=== PATIENT | female | born 1970 | race Hispanic/Latino ===

== ENCOUNTER 2019-06-25 15:05 | Inpatient (IN) | payer MEDICAID, SELFPAY ==
[~2019-06-25 15:05] MED LIST: Esmolol 100 MG/10 ML VIAL ONE; Labetalol HCl 100 MG/20 ML VIAL ONE; PROPOFOL 200 MG/20 ML VIAL ONE; Rocuronium Bromide 10 MG/ML (10ML VIAL) ONE
[2019-06-25] MEDS ORDERED: Rocuronium Bromide 10 MG/ML (10ML VIAL) ONE (15:08)
[2019-06-25 15:22] LABS: #Basophils 0.1 thou/uL (0.0-0.2); #Eosinphils 0.2 thou/uL (0.0-0.7); #Lymphocytes 3.7 thou/uL (1.20-3.40); #Monocytes 0.9 thou/uL (0.11-0.59); #Neutrophils 6.9 thou/uL (1.40-6.50); %Basophils 0.7 % (0.0-1.0); %Eosinophils 1.4 % (0.0-10.0); %Lymphocytes 31.7 % (21.0-51.0); %Monocytes 7.3 % (0.0-10.0); %Neutrophils 58.8 % (42.0-75.0); Hemoglobin 17.5 g/dL (12.0-16.0); Mean Corpuscular HGB CONC 33.9 g/dL (32.0-36.0); Mean Corpuscular Volume 85.5 fL (78.0-98.0); Platelet Count 218 thou/uL (130-400); RBC Distribution Width 12.8 % (11.5-14.5); Red Blood Cell (RBC) Count 6.04 mill/uL (4.20-5.40); White Blood Cell (WBC) Count 11.7 thou/uL (4.8-10.8)
[2019-06-25] MEDS ORDERED: Mannitol 12.5 GM/50 ML ONE (15:22)
[2019-06-25] MEDS ORDERED: levETIRAcetam 500 MG/100 ML PREMIX BAG ONE (15:22)
--- NOTE | 2019-06-25 15:22 | CT ---
CT BRAIN WITHOUT CONTRAST: HISTORY: Level I stroke. COMPARISON: None. FINDINGS: There is a large left thalamic hemorrhage with intraventricular extension seen through the bilateral lateral ventricles, left temporal horn, third ventricle and fourth ventricle. Moderate hydrocephalus. There is a midline shift, approximately 3 mm. There is some vasogenic edema along the left periventr icular white matter. IMPRESSION: Large left thalamic hemorrhagic infarction with intraventricular extension and subsequent hydrocephal us. There is lateral ventricle, third ventricle and fourth ventricle extension with hemorrhagic exten dorita through the foramen of Luschka and Magendie. CODE CR (Dr. Ramírez at 3:15 p.m.) POS: TPC
[2019-06-25] MEDS ORDERED: manNITOL 20% 0 ML ONE (15:26)
[2019-06-25 15:28] LABS: Prothrombin Time 12.9 SEC (12.0-14.7)
[2019-06-25] MEDS ORDERED: Propofol 1,000 MG/100 ML VIAL IV ONE (15:30)
[2019-06-25 15:33] LABS: BHCG - Serum Negative (NEGATIVE); Pregs Control Background? CLEAR/WHITE (CLR/WHITE); Pregs Control Bar Appear? YES (CONTROL BAR)
[2019-06-25] MEDS ORDERED: manNITOL 20% 500 ML ONE ×2 (15:34→17:26)
[2019-06-25 15:36] LABS: ALT (SGPT) 20 U/L (8-55); AST (SGOT) 24 U/L (5-34); Albumin 4.6 g/dL (3.5-5.0); Alkaline Phosphatase 93 U/L (40-110); Anion Gap 17 mmol/L (10-20); BUN (Urea Nitrogen) 20 mg/dL (7.0-18.7); Bilirubin, Total 1.1 mg/dL (0.2-1.2); CK (CPK) 74 U/L (29-168); Calc. Creatinine Clearance 0 mL/min (70-130); Calcium 9.7 mg/dL (7.8-10.44); Carbon Dioxide 21 mmol/L (22-29); Chloride 101 mmol/L (98-107); Estimated GFR-MDRD 53; Globulin 4.2 g/dL (2.4-3.5); Glucose 235 mg/dL (70-105); Lipase 21 U/L (8-78); Potassium 3.2 mmol/L (3.5-5.1); Protein, Total 8.8 g/dL (6.0-8.3); Sodium 136 mmol/L (136-145)
[2019-06-25 15:41] LABS: Large Platelets SLIGHT; MDiff Complete? YES; Platelet Morphology Comment Appears Adequate; RBC Morphology Normal
[2019-06-25] MEDS ORDERED: Thrombin 5000 UNITS/5 ML VIAL ONE (15:41)
[2019-06-25] MEDS ORDERED: Bacitracin Zinc Ointment 30 gm TUBE ONE (15:41)
[2019-06-25] MEDS ORDERED: levETIRAcetam In NaCl (Iso-Os) 1,000 MG in Premix Bag 1 BAG IVPB SCH (15:45)
[2019-06-25] MEDS ORDERED: niCARdipine 25 MG in Sodium Chloride 0.9% 250 ML 250 ML IVPB SCH (15:45)
[2019-06-25] MEDS ORDERED: Sodium Chloride 0.9% 1,000 ML IV SCH ×2 (15:45→19:15)
[2019-06-25] MEDS ORDERED: Mannitol 12.5 GM/50 ML IV SCH (15:45)
[2019-06-25] MEDS ORDERED: Fentanyl 100 MCG/2 ML VIAL ONE ×2 (15:49→17:46)
--- NOTE | 2019-06-25 15:50 | RAD ---
CHEST ONE VIEW: 06/25/19 HISTORY: Stroke protocol. COMPARISON: None. HISTORY: Enteric tube is in place with tip at the gastric fundus. The patient is intubated. Endotracheal tube tip above the deepak 2.8 cm. Central venous catheter tip projects over the inferior SVC. Mild atelectasis. IMPRESSION: Lines and tubes as above. POS: TPC
[2019-06-25 15:55] LABS: Thyroid Stimulating Hormone 0.6719 uIU/mL (0.35-4.94)
[2019-06-25 15:58] LABS: CKMB 1.9 ng/mL (0-6.6)
[2019-06-25 16:06] LABS: Bacteria/HPF None Seen HPF (None Seen); Bilirubin Negative (Negative); Blood, Urine Trace (Negative); Clarity Clear (Clear); Glucose, Urine (Dipstick) 300 mg/dL (Negative); Leukocyte Negative Leu/uL (Negative); Mucous/LPF 1+ LPF (<2+); Nitrite Negative (Negative); Protein, Urine (Dipstick) 300 mg/dL (Neg-Trace); RBC/HPF 0-3 HPF (0-3); Squamous Epithelial 0-3 HPF (0-3); Urobilinogen Normal mg/dL (Less than 2)
[2019-06-25] MEDS ORDERED: hydrALAZINE 20 MG/ML VIAL ONE (16:39)
[2019-06-25] MEDS ORDERED: Sodium Chloride 0.9% 10 ML ONE ×2 (16:43→22:31)
[2019-06-25] MEDS ORDERED: Morphine 2 MG/ML SYRINGE SLOW IVP PRN (18:49)
[2019-06-25] MEDS ORDERED: Propofol BOLUS 1,000 MG/100 ML VIAL IV PRN (18:49)
[2019-06-25] MEDS ORDERED: fentaNYL Citrate/PF 2,000 MCG in Sodium Chloride 0.9% 60 ML IV SCH (18:49)
[2019-06-25] MEDS ORDERED: DISCONTINUE PREVIOUS NARCOTIC PAIN MEDICATIONS AND BENZODIAZEPINES FS SCH (18:49)
[2019-06-25] MEDS ORDERED: Lorazepam 2 MG/ML VIAL SLOW IVP PRN (18:49)
[2019-06-25] MEDS ORDERED: Fentanyl BOLUS 250 ML IVPB PRN (18:49)
[2019-06-25] MEDS ORDERED: Milk Of Magnesia 30 ML UDCUP PO PRN (19:08)
[2019-06-25] MEDS ORDERED: Mag-Al 1200 mg/1200 mg/30 ML UDCUP PO PRN (19:08)
[2019-06-25] MEDS ORDERED: Bisacodyl 10 MG SUPP PR PRN (19:08)
[2019-06-25] MEDS ORDERED: Docusate 100 MG CAP PO PRN (19:08)
[2019-06-25] MEDS ORDERED: niCARdipine 25 MG in Sodium Chloride 0.9% 250 ML 240 ML IVPB SCH ×2 (19:15→19:19)
[2019-06-25] MEDS: manNITOL 20% 500 ML IVPB SCH (19:18)
[2019-06-25 19:34] LABS: Base Excess (BEa) -3.4 mEq/L (-2.0 to +3.0); CO2 Tension 31.9 mmHg (35.0-45.0); Calcium, Ionized 1.07 mmol/L (1.12-1.30); Carboxyhemoglobin (COHb) 0.5 gm% (0.0-3.0); Hemoglobin (Hb) 15.1 g/dL (12.0-16.0); O2 Tension (PaO2) 165.7 mmHg (80.0-100.0); pH, Arterial 7.42 (7.35-7.45)
[2019-06-25 19:35] LABS: ALV-art Gradient 79.625 (0-20); Puncture Site ALINE
[2019-06-25] MEDS ORDERED: [UNRECOGNIZED DRUG - REMARK] FS PRN (19:42)
[2019-06-25] MEDS: Sodium Chloride 0.9% 1,000 ML IV SCH (20:15)
[2019-06-25] MEDS: Potassium Chloride 20 MEQ in Premix Bag 1 BAG IVPB SCH ×2 (20:15→22:33)
[2019-06-25] MEDS: CEFAZOLIN 2 GM in Premix Bag 1 BAG IVPB SCH (22:22)
[2019-06-25 23:03] LABS: Amphetamine Not Detected (NotDetected); Barbiturates Screen Not Detected (NotDetected); Benzodiazepine Screen Not Detected (NotDetected); Cocaine Metabolite Screen Not Detected (NotDetected); Medtox Control Line Valid? VALID (VALID); Medtox Reader # READER 1; Methadone Not Detected (NotDetected); Methamphetamine Not Detected (NotDetected); Opiate Screen Not Detected (NotDetected); Oxycodone Screen Not Detected (NotDetected); Phencyclidine (PCP) Not Detected (NotDetected); THC/Cannabinoid Screen Not Detected (NotDetected); Tricyclic Screen Not Detected (NotDetected)
[2019-06-26] MEDS: Potassium Chloride 20 MEQ in Premix Bag 1 BAG IVPB SCH (00:16)
[2019-06-26] MEDS: niCARdipine 50 MG in Sodium Chloride 0.9% 250 ML 230 ML IVPB PRN ×6 (01:41→21:56)
[2019-06-26] MEDS: CEFAZOLIN 2 GM in Premix Bag 1 BAG IVPB SCH ×3 (06:11→21:58)
[2019-06-26 08:09] LABS: Anion Gap 14 mmol/L (10-20); BUN (Urea Nitrogen) 23 mg/dL (7.0-18.7); Calc. Creatinine Clearance 59 mL/min (70-130); Calcium 8.2 mg/dL (7.8-10.44); Carbon Dioxide 20 mmol/L (22-29); Chloride 109 mmol/L (98-107); Estimated GFR-MDRD 53; Glucose 304 mg/dL (70-105); Potassium 3.8 mmol/L (3.5-5.1); Sodium 139 mmol/L (136-145)
[2019-06-26 08:15] LABS: #Lymphocytes 1.2 thou/uL (1.20-3.40); #Monocytes 1.2 thou/uL (0.11-0.59); #Neutrophils 16.7 thou/uL (1.40-6.50); %Basophils 0.1 % (0.0-1.0); %Eosinophils 0.1 % (0.0-10.0); %Lymphocytes 6.3 % (21.0-51.0); %Monocytes 6.2 % (0.0-10.0); %Neutrophils 87.3 % (42.0-75.0); Hemoglobin 13.9 g/dL (12.0-16.0); Mean Corpuscular HGB CONC 32.5 g/dL (32.0-36.0); Mean Corpuscular Volume 86.2 fL (78.0-98.0); Mean Platelet Volume 11.7 fL (7.4-10.4); Platelet Count 214 thou/uL (130-400); RBC Distribution Width 12.8 % (11.5-14.5); Red Blood Cell (RBC) Count 4.95 mill/uL (4.20-5.40); White Blood Cell (WBC) Count 19.1 thou/uL (4.8-10.8)
--- NOTE | 2019-06-26 09:25 | CT ---
PRELIMINARY REPORT/[facility]/EMERGENCY AFTER HOURS PROCEDURE Exam: Unenhanced CT brain. History: Followup intracranial hemorrhage. Comparison: June 25, 2019. Findings: There is interval placement of left ventriculostomy catheter. It demonstrates a left front al approach and the tip terminates in third ventricle. New from prior exam is pneumocephalus. Air w ithin the right frontal region measures 1.1 cm and air within the left frontal region measures 1.2 cm . Air is present within the anterior horns of the lateral ventricles and also normal. Air within th e middle cranial fossa. Left basal ganglia hemorrhagic infarct is present measuring 64.2 x 2.8 cm it previously measured 4.0 x 2.7 cm, no significant interval change. There is persistent blood within the ventricles. Ventricles have decreased in size. There is mass effect from basal ganglia hemorrha ge with midline shift from left to right measuring approximately 6 mm. There has been worsening effa cement of cisterns. Impression: Interval placement of ventriculostomy catheter. Associated pneumocephalus. Decrease in size of ventricles. Left basal ganglia hemorrhage, unchanged. No significant change in intraventric ular blood. Worsening effacement of cisterns. ELECTRONICALLY SIGNED BY: Benita Schmitt MD Jun 26, 2019 4:08:04 AM [employer] FINAL REPORT EMERGENT AFTER HOURS CT OF THE BRAIN WITHOUT CONTRAST: FINDINGS/IMPRESSION: I agree with the findings and impression given in the preliminary report per [facility] physici an. There has been interval placement of a ventriculostomy catheter. There is a large hyperdense he morrhage involving the left basal ganglia and extending into lateral ventricles. The extent of hemor rhage is stable compared to the prior exam. There appears to be worsening of the crowding of the bas ilar cisterns.
[2019-06-26] MEDS: Sodium Chloride 0.9% 1,000 ML IV SCH ×2 (09:43→22:00)
[2019-06-26] MEDS ORDERED: Dextrose 5% in Water 1,000 ML IV PRN (12:14)
[2019-06-26] MEDS ORDERED: Dextrose 50% Abboject 50 ML SYRINGE SLOW IVP PRN (12:14)
--- NOTE | 2019-06-26 12:14 | PDOC.HOSPP ---
- Subjective Encounter Date: 06/26/19 Encounter Time: 10:00 non-verbal Subjective: pt is admitted for ICH due to hypertension, due to noncompliance with treatment , underwent surgery for hematoma evacuation and has EVD in place, after surgery pt is on ventilator, this morning CT brain is overall stable, pt is not responsive on vent when evaluated though sedation was turned off just before that, we are consulted for diabetes management. - Objective Vital Signs & Weight: Vital Signs (12 hours) Temp Pulse Resp 06/26/19 10:31 82 06/26/19 08:00 14 06/26/19 07:15 106 H 06/26/19 07:00 99.8 F H 06/26/19 06:00 13 06/26/19 04:00 99.4 F 13 06/26/19 03:31 88 06/26/19 02:00 17 Weight Weight 133 lb 9.602 oz Most Recent Monitor Data Heart Rate from ECG 84 NIBP 123/70 NIBP BP-Mean 87 Respiration from ECG 23 SpO2 100 I&O: 06/25/19 06/26/19 06/27/19 06:59 06:59 06:59 Intake Total 1892 Output Total 1717 292 Balance 175 -292 Result Diagrams: 06/26/19 07:22 06/26/19 07:22 Additional Labs: Accuchecks 06/26/19 06/25/19 06:20 22:27 POC Glucose 271 H 341 H Radiology Reviewed by me: Yes (CT brain reviewed) EKG Reviewed by me: Yes (NSR) Hospitalist ROS - Review of Systems ROS unobtainable: due to endotracheal tube - Medication Medications: Active Medications Generic Name Dose Route Start Last Admin Trade Name Freq PRN Reason Stop Dose Admin Mannitol 500 mls @ 0 mls/hr 06/25/19 16:00 06/25/19 19:18 Mannitol 20% IVPB 06/26/19 18:00 Not Given NOW MATTHIAS As Directed Levetiracetam 500 mg/ Device 100 mls @ 200 mls/hr 06/25/19 21:00 06/26/19 09: 34 IVPB 100 mls BID MATTHIAS Administration Sodium Chloride 1,000 mls @ 80 mls/hr 06/25/19 19:15 06/26/19 09:43 Normal Saline 0.9% IV 1,000 mls .[id number] MATTHIAS Administration Cefazolin Sodium/Dextrose 2 gm 50 mls @ 100 mls/hr 06/25/19 22:00 06/26/19 06 :11 / Device IVPB 50 mls Q8HR MATTHIAS Administration Nicardipine HCl 50 mg/ Sodium 250 mls @ 0 mls/hr 06/26/19 00:45 06/26/19 09: 35 Chloride IVPB 250 mls INF PRN Administration TO MAINTAIN SBP < 150 Protocol As Directed - Exam Eye: anicteric sclera ENT - other findings: cranitomy site with dressing and EVD in place Neck: no JVD, no thyromegaly, no lymphadenopathy, no carotid bruit Heart: RRR, no murmur, no gallops Respiratory: CTAB, no wheezes, no rales, no ronchi Gastrointestinal: soft, normal bowel sounds, no palpable masses, no hepatomegaly , no splenomegaly Extremities: no edema Skin: normal turgor Neurological: hemiplegia Hosp A/P (1) Hypertensive intracerebral hemorrhage Code(s): I61.9 - NONTRAUMATIC INTRACEREBRAL HEMORRHAGE, UNSPECIFIED Status: Acute (2) Acute respiratory failure with hypoxia Code(s): J96.01 - ACUTE RESPIRATORY FAILURE WITH HYPOXIA Status: Acute (3) Acute encephalopathy Code(s): G93.40 - ENCEPHALOPATHY, UNSPECIFIED Status: Acute (4) Hypertensive emergency Code(s): I16.1 - HYPERTENSIVE EMERGENCY Status: Acute (5) Diabetes type 2, uncontrolled Code(s): E11.65 - TYPE 2 DIABETES MELLITUS WITH HYPERGLYCEMIA Status: Acute (6) Noncompliance with medication regimen Code(s): Z91.14 - PATIENT'S OTHER NONCOMPLIANCE WITH MEDICATION REGIMEN Status : Chronic (7) Hypokalemia Code(s): E87.6 - HYPOKALEMIA Status: Resolved - Plan old records reviewed/req, DVT proph w/SCDs 06/26/19 continue ventilator management as per pulmonary EVD and post craniotomy care as per neurosurgeon on cardene drip started hyperglycemia protocol treatment for high blood sugar medication reviewed and continue to provide symptomatic treatment prognosis guarded
[2019-06-26] MEDS: HumaLOG 300 UNITS/3 ML VIAL SC PRN ×2 (13:33→17:49)
--- NOTE | 2019-06-26 15:28 | CON ---
DATE OF CONSULTATION: 06/26/2019 SERVICE: Pulmonary Medicine. REASON FOR CONSULTATION: ICU patient. HISTORY OF PRESENT ILLNESS: The patient is a 49-year-old female with past medical history significant for uncontrolled hypertension. She was in her usual state of health when she had an abrupt onset of neurologic dysfunction. She was brought to the emergency department. 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 Her blood pressure was over 270. As such, rapid blood pressure reduction was initiated. She was completely obtunded, intubated to protect her airway. No medical history is obtainable. PAST MEDICAL HISTORY: Completely unknown. PAST SURGICAL HISTORY: Completely unknown. FAMILY HISTORY: Completely unknown. SOCIAL HISTORY: Completely unknown. ALLERGIES: UNKNOWN. MEDICATIONS: List of her inpatient medications was reviewed. No specific updates were made at this time. REVIEW OF SYSTEMS: Cannot be obtained as the patient is currently obtunded. PHYSICAL EXAMINATION: VITAL SIGNS: Afebrile with a T-max of 99.8, pulse 85, blood pressure 125/69, respirations 19, and saturation 100% on 40% FiO2 and PEEP of 5. GENERAL: The patient is intubated and sedated. HEENT: Normocephalic and atraumatic. She has an external ventricular drain in place. LUNGS: Good air entry bilaterally with no prolonged expiratory phase or wheezing. HEART: Normal rate, regular. ABDOMEN: Soft, nontender, and nondistended. Bowel sounds are positive. MUSCULOSKELETAL: No cyanosis or clubbing. There is no pitting in the bilateral lower extremities. LABORATORY DATA: WBC 19.1, hemoglobin 13.9, and platelets 214,000. INR 1.0. PH 7.42, pCO2 of 32, pO2 of 165, corresponding to saturation 99%. This was while on a FiO2 of 40%. Basic metabolic profile is completely unremarkable. Ammonia 27. Liver function studies are unremarkable. TSH is within normal limits. Serum is negative. Urinalysis is unremarkable. Urine drug screen is negative. IMAGING STUDIES: 1. CT of the brain demonstrates interval placement of ventriculostomy catheter associated with pneumocephalus. Decrease in size of the ventricles. Left basal ganglia hemorrhage is unchanged. No significant change in the intraventricular blood. There is worsening effacement of the cisterns. 2. Chest x-ray demonstrates no acute cardiopulmonary abnormality. ASSESSMENT: 1. Respiratory failure secondary to inability to protect airway. 2. Hypertensive emergency. 3. Intraparenchymal hemorrhage of the left thalamus with intraventricular extension, status post external ventricular drain, postop day #1. DISCUSSION AND PLAN: We will continue supportive care. At this point, the patient has too many moving parts to consider extubating her. We will continue to try to keep her blood pressure under 140. Pulmonary/Critical Care will follow very closely. Multiple adjustments have been made to the ventilator to turn slightly more work of breathing over to the patient. CRITICAL CARE TIME: 30 minutes. Job ID: [id number] MTDD
[2019-06-26] MEDS: Propofol 1,000 MG/100 ML VIAL IV PRN ×2 (15:37→21:56)
[2019-06-26] MEDS: manNITOL 20% 500 ML IVPB SCH (19:27)
[2019-06-27 05:11] LABS: Hemoglobin A1c 8.2 % (4.0-6.0)
[2019-06-27 05:33] LABS: Anion Gap 12 mmol/L (10-20); BUN (Urea Nitrogen) 19 mg/dL (7.0-18.7); Calc. Creatinine Clearance 82 mL/min (70-130); Carbon Dioxide 19 mmol/L (22-29); Cardiac Risk 3.4 (Less than 4.5); Chloride 113 mmol/L (98-107); Cholesterol 177 mg/dl (< 200 Desired); Estimated GFR-MDRD 75; Glucose 231 mg/dL (70-105); HDL Cholesterol 52 mg/dL (>60 Neg Risk); LDL Cholesterol, Calculated 99 mg/dL; Magnesium 1.9 mg/dL (1.6-2.6); Potassium 3.1 mmol/L (3.5-5.1); Sodium 141 mmol/L (136-145); Triglycerides 131 mg/dL (Less than 150)
[2019-06-27 05:38] LABS: Band 1 % (5-11); Hemoglobin 11.6 g/dL (12.0-16.0); Hypochromia SLIGHT = 6-15 cells (100X) (0-5/hpf); Lymphocytes 10 % (21-51); MDiff Complete? YES; Mean Corpuscular HGB CONC 32.5 g/dL (32.0-36.0); Mean Corpuscular Hemoglobin 27.7 pg (27.0-31.0); Mean Corpuscular Volume 85.3 fL (78.0-98.0); Mean Platelet Volume 11.8 fL (7.4-10.4); Monocytes 1 % (0-10); Neutrophil 88 % (42-75); Platelet Count 183 thou/uL (130-400); Platelet Morphology Comment Appears Adequate; RBC Distribution Width 12.8 % (11.5-14.5); White Blood Cell (WBC) Count 20.6 thou/uL (4.8-10.8)
[2019-06-27] MEDS: CEFAZOLIN 2 GM in Premix Bag 1 BAG IVPB SCH ×3 (05:44→22:10)
[2019-06-27] MEDS: niCARdipine 50 MG in Sodium Chloride 0.9% 250 ML 230 ML IVPB PRN ×2 (05:45→15:07)
[2019-06-27] MEDS: HumaLOG 300 UNITS/3 ML VIAL SC PRN ×3 (05:46→17:33)
--- NOTE | 2019-06-27 06:59 | PRG ---
DATE OF SERVICE: 06/27/2019 SERVICE: Pulmonary Medicine. INTERVAL HISTORY: The patient is doing fine from respiratory standpoint. Mentation turner, she is not following any commands, but she does localize and withdraws from noxious stimuli in all 4 extremities. There were some low-grade temperatures overnight. The patient cannot provide any additional elements of the history. Otherwise, there were no overnight events. PHYSICAL EXAMINATION: VITAL SIGNS: Afebrile with a T-max of 99.8. Pulse 85, blood pressure 123/59, respirations 21, saturation 100%, currently on 21% FiO2 and a PEEP of 5. GENERAL: The patient is somnolent. With stimulation, she will spontaneously open up her eyes, but she does not attend. HEENT: Normocephalic. An external ventricular drain is in place. Sclerae white. Conjunctivae pink. Oral mucosa is moist without lesions. LUNGS: Decent air entry. No prolonged expiratory phase or wheezing is appreciated. HEART: Normal rate. Regular. ABDOMEN: Soft, nontender, and nondistended. Bowel sounds are positive. MUSCULOSKELETAL: No cyanosis or clubbing. There is trace pitting throughout. NEUROLOGIC: She withdraws from noxious stimuli in all 4 extremities. She is comfortably overbreathing the ventilator and demonstrates good brainstem reflexes. She opens her eyes, occasionally spontaneously, but at this point, she is not following any commands. LABORATORY DATA: WBC 20.6, hemoglobin 11.6 and significantly downtrending, and platelets 183,000. Potassium 3.1, chloride 113, sodium 141. Creatinine 0.81. Magnesium 1.9. Urinalysis is unremarkable. Urine drug screen is negative. ASSESSMENT: 1. Respiratory failure secondary to inability to protect airway. 2. Hypertensive emergency. 3. Intraparenchymal hemorrhage of the left thalamus with intraventricular extension, status post craniotomy with external ventricular drain placement, postop day 2. DISCUSSION AND PLAN: The patient at this point is not in a place where we can consider extubation given her mental status issues. I will replace the potassium. Supportive care will otherwise be continued including tube feeds, and empiric antibiotics. Pulmonary/Critical Care will continue to follow her closely as the patient will remain in the ICU. Sedation we will minimize through time if possible. We will continue to escalate our p.o. blood pressure medications. Critical care time: 30 minutes. Job ID: [id number] [facility] CENTERMaricarmen
[2019-06-27] MEDS: Carvedilol 6.25 MG TAB PO SCH ×2 (08:11→17:26)
[2019-06-27] MEDS: hydrALAZINE 25 MG TAB PO SCH ×3 (08:51→20:34)
[2019-06-27] MEDS: Sodium Chloride 0.9% 1,000 ML IV SCH ×2 (08:53→14:28)
--- NOTE | 2019-06-27 10:04 | CT ---
CT Brain WO Con HISTORY: Follow-up of intracranial hemorrhage. COMPARISON: 06/26/2019 study. FINDINGS: Moderate pneumocephalus persists. The ventriculostomy tube remains in place with the tip in the region of the third ventricle. The large intraparenchymal hemorrhage in the left periventricular white matter basal ganglia region is stable and the intraventricular blood is similar to the prior examination. The ventricles are more decompressed than on the prior study. IMPRESSION: Large left base and tiny hemorrhage with extension into the ventricular system again note d this appears fairly stable as compared to the prior examination. The ventricular shunt tube remains in place. The ventricles are more decompressed than on the previous exam. Pneumocephalus pers ists.
--- NOTE | 2019-06-27 10:15 | ULT ---
EXAM: Bilateral lower extremity venous Doppler US HISTORY: bilateral lower extremity edema and impaired mobility recent craniotomy FINDINGS: Grayscale, color-flow, Doppler evaluation, spectral analysis of the bilateral lower extremities venou s structures is performed with 2-D imaging. The bilateral common femoral, superficial femoral, popliteal, posterior tibial, proximal greater saphenous and profunda femoral veins are imaged. There is normal luminal compressibility, flow, and augmentation in the visualized deep venous structu res of the bilateral lower extremities. IMPRESSION: No evidence of a deep vein thrombosis in either lower extremity.
--- NOTE | 2019-06-27 10:40 | PRG ---
DATE OF SERVICE: 06/27/2019 Ms. Rutherford remains in guarded condition. We will obtain a new head CT. We did back her EVD out approximately 15 mm yesterday as it was a bit deep, but certainly functioning quite well. This was inconsequential for the patient as her drain continues to work well. We have it below the bed and set at 0 to try and promote drainage given the substantial casting for ventricular system. She is on nicardipine in attempt to control her blood pressure. Prognosis remains guarded. Job ID: [id number]
--- NOTE | 2019-06-27 11:29 | OP ---
DATE OF PROCEDURE: 06/25/2019 INDUSTRIAL RELATIONS SPECIALIST: Joann Rendon PA-C LOCATION: OR 12. This is an emergency case. Ms. Rutherford was brought in as a 49-year-old woman with a systolic blood pressure well over 200 and diastolic blood pressure just under 200 with a moribund exam consisting of a GCS of 5T. Head CT demonstrated a thalamic hemorrhage with extensive casting of the ventricular system and obstructive hydrocephalus. She was given 1 g/kg of mannitol and taken immediately to the operating room. PREPROCEDURE DIAGNOSES: Thalamic hemorrhage with extensive ventricular casting and obstructive hydrocephalus with neurologic decline. POSTPROCEDURE DIAGNOSES: Thalamic hemorrhage with extensive ventricular casting and obstructive hydrocephalus with neurologic decline. PROCEDURES PERFORMED: 1. Left transcortical approach for intraventricular supratentorial hematoma evacuation with fenestration of the septum pellucidum and evacuation of hematoma in the third ventricle to restore CSF flow. 2. Twist drill placement of external ventricular drain into the ventricle to treat hydrocephalus. 3. Use of operative microscope for microdissection. DESCRIPTION OF PROCEDURE: Given the emergent nature of the case, the patient was taken immediately to the operating room. Left frontal Gissel's point region was identified. Hair was clipped in this area, and a coronal incision drawn out. This area was sterilely cleansed, prepared, and draped. Proper patient, pause, and identification were carried out. The wound was then opened with a combination of sharp, monopolar, and blunt dissection, and the skull was opened with a circular craniotomy. Middle frontal gyrus was identified and opened with the external ventricular catheter placed into the ventricular with return of bloody CSF under significant pressure. This then subsequently clotting off, confirming my suspicion that an external ventricular drain would not be able to treat the patient adequately. As such, we proceeded along the course of the external ventricular drain, identified the septum pellucidum, opened this up and evacuated significant amounts of hematoma. I went into the foramen of [place]ro on the left side and into the third ventricle and evacuated hematoma there and also posteriorly and made sure again there was a large septum pellucidum opening for biventricular communication and hematoma was removed in the right ventricular system as well. The brain was very relaxed. Copious irrigation occurred throughout as did maximizing hemostasis. The drain was then secured to the scalp, and this bone flap packed with titanium plates and screws, and scalp was closed in anatomic layers following sprinkling of vancomycin powder. The patient was then kept intubated and taken upstairs. Job ID: [id number]
--- NOTE | 2019-06-27 12:11 | PDOC.HOSPP ---
- Subjective Encounter Date: 06/27/19 Encounter Time: 07:15 Subjective: Patient seen and examined. pt is on vent, no overall improvement seen - Objective Vital Signs & Weight: Vital Signs (12 hours) Temp Pulse Resp BP Pulse Ox 06/27/19 11:23 76 157/76 H 06/27/19 10:00 15 06/27/19 08:51 85 130/64 06/27/19 08:11 112/58 L 06/27/19 08:00 99.1 F 26 H 100 06/27/19 07:37 99 132/63 06/27/19 06:00 21 H 06/27/19 04:00 99.5 F 20 06/27/19 03:18 95 06/27/19 02:00 24 H Weight Weight 138 lb 7.205 oz Most Recent Monitor Data Heart Rate from ECG 81 NIBP 151/72 NIBP BP-Mean 98 Respiration from ECG 19 SpO2 100 I&O: 06/26/19 06/27/19 06/28/19 06:59 06:59 06:59 Intake Total 1892 3591.7 240 Output Total 1717 1965 524 Balance 175 1626.7 -284 Result Diagrams: 06/27/19 04:40 06/27/19 04:40 Additional Labs: Accuchecks 06/27/19 06/26/19 06/26/19 04:47 22:35 17:45 POC Glucose 222 H 164 H 201 H 06/26/19 06/25/19 13:34 17:08 POC Glucose 247 H 237 H Radiology Reviewed by me: Yes EKG Reviewed by me: Yes Hospitalist ROS - Review of Systems ROS unobtainable: due to endotracheal tube - Medication Medications: Active Medications Generic Name Dose Route Start Last Admin Trade Name Freq PRN Reason Stop Dose Admin Carvedilol 6.25 mg 06/27/19 08:00 06/27/19 08:11 Coreg PO 6.25 mg BID-WM MATTHIAS Administration Hydralazine HCl 25 mg 06/27/19 09:00 06/27/19 08:51 Apresoline PO 25 mg TID MATTHIAS Administration Levetiracetam 500 mg/ Device 100 mls @ 200 mls/hr 06/25/19 21:00 06/27/19 08: 52 IVPB 100 mls BID MATTHIAS Administration Sodium Chloride 1,000 mls @ 80 mls/hr 06/25/19 19:15 06/27/19 08:53 Normal Saline 0.9% IV Not Given .[id number] MATTHIAS Cefazolin Sodium/Dextrose 2 gm 50 mls @ 100 mls/hr 06/25/19 22:00 06/27/19 05 :44 / Device IVPB 50 mls Q8HR MATTHIAS Administration Nicardipine HCl 50 mg/ Sodium 250 mls @ 0 mls/hr 06/26/19 00:45 06/27/19 05: 45 Chloride IVPB 250 mls INF PRN Administration TO MAINTAIN SBP < 150 Protocol As Directed Insulin Human Lispro 0 units 06/26/19 12:14 06/27/19 11:57 Humalog SC 2 unit .MODERATE SLIDING SC PRN Administration Moderate Correctional Scale Propofol 1,000 mg 06/25/19 18:49 06/26/19 21:56 Diprivan IV 07/25/19 18:49 1,000 mg INF PRN Administration TO ACHIEVE GOAL RASS Protocol - Exam General Appearance: NAD General - other findings: on vent Neck: no JVD, no thyromegaly Heart: RRR, no murmur, no gallops Respiratory: CTAB, no wheezes, no rales Gastrointestinal: soft, non-distended, normal bowel sounds Extremities: no cyanosis, no edema Hosp A/P (1) Hypertensive intracerebral hemorrhage Code(s): I61.9 - NONTRAUMATIC INTRACEREBRAL HEMORRHAGE, UNSPECIFIED Status: Acute (2) Acute respiratory failure with hypoxia Code(s): J96.01 - ACUTE RESPIRATORY FAILURE WITH HYPOXIA Status: Acute (3) Acute encephalopathy Code(s): G93.40 - ENCEPHALOPATHY, UNSPECIFIED Status: Acute (4) Hypertensive emergency Code(s): I16.1 - HYPERTENSIVE EMERGENCY Status: Acute (5) Diabetes type 2, uncontrolled Code(s): E11.65 - TYPE 2 DIABETES MELLITUS WITH HYPERGLYCEMIA Status: Acute (6) Noncompliance with medication regimen Code(s): Z91.14 - PATIENT'S OTHER NONCOMPLIANCE WITH MEDICATION REGIMEN Status : Chronic (7) Hypokalemia Code(s): E87.6 - HYPOKALEMIA Status: Resolved - Plan old records reviewed/req 06/26/19 continue ventilator management as per pulmonary EVD and post craniotomy care as per neurosurgeon on cardene drip started hyperglycemia protocol treatment for high blood sugar medication reviewed and continue to provide symptomatic treatment prognosis guarded 06/27/19 continue vent support supportive care
[2019-06-28] MEDS: HumaLOG 300 UNITS/3 ML VIAL SC PRN ×4 (00:29→18:50)
[2019-06-28] MEDS: Acetaminophen 325 MG TAB PO PRN (02:09)
[2019-06-28] MEDS: Labetalol HCl 100 MG/20 ML VIAL SLOW IVP PRN ×4 (02:30→23:36)
[2019-06-28] MEDS: niCARdipine 50 MG in Sodium Chloride 0.9% 250 ML 230 ML IVPB PRN ×5 (04:14→23:21)
[2019-06-28] MEDS: Sodium Chloride 0.9% 1,000 ML IV SCH ×2 (04:16→10:00)
[2019-06-28] MEDS: CEFAZOLIN 2 GM in Premix Bag 1 BAG IVPB SCH ×3 (05:46→22:32)
[2019-06-28] MEDS ORDERED: Sodium Bicarbonate Tab 325 MG TAB PER TUBE PRN (07:27)
[2019-06-28] MEDS ORDERED: Pancrelipase DR 12000 1 CAP FS PRN (07:27)
[2019-06-28] MEDS: Carvedilol 6.25 MG TAB PO SCH ×2 (09:53→17:49)
[2019-06-28] MEDS: hydrALAZINE 25 MG TAB PO SCH ×3 (09:54→21:05)
--- NOTE | 2019-06-28 10:02 | PRG ---
DATE OF SERVICE: 06/28/2019 SUBJECTIVE: Ms. Rutherford is 3 days into her ICU hospitalization for large left thalamic hemorrhage with significant casting of the ventricular system and hydrocephalus. Postoperative CTs are satisfactory. She has an EVD in, open at 0. We will continue this. She is on prophylactic levetiracetam. OBJECTIVE: On exam, she will localize on the left side and occasional movements on the right, but obviously given the encroachment into the posterior limb of the internal capsule, she is quite hemiparetic on the right. We expect no changes in plan over the weekend. Job ID: [id number]
--- NOTE | 2019-06-28 11:02 | PRG ---
DATE OF SERVICE: 06/28/2019 SERVICE: Pulmonary Medicine. INTERVAL HISTORY: The patient is doing poorly from mentation standpoint. She cannot provide any additional elements of the history. Otherwise, there are no significant overnight events. She remains on the mechanical ventilator. PHYSICAL EXAMINATION: VITAL SIGNS: Afebrile, pulse 88, blood pressure 153/74, respirations are 18, and saturation 100%, currently on 27% FiO2 and a PEEP of 5. GENERAL: The patient is intubated. HEENT: Normocephalic. Head is wrapped. Sclerae white. Conjunctivae pink. Oral mucosa is moist without lesions. LUNGS: Decent air entry with no prolonged expiratory phase or wheezing present. HEART: Normal rate. Regular. ABDOMEN: Soft, nontender, and nondistended. Bowel sounds positive. MUSCULOSKELETAL: No cyanosis or clubbing. There is 1 to 2+ pitting throughout. NEUROLOGIC: She does not withdraw from noxious stimuli to all 4 extremities except for the left lower extremity. At the right foot, she has a briskly upgoing Babinski. She spontaneously opens up her eyes, but does not attend. Brainstem reflexes are intact currently. LABORATORY DATA: Hemoglobin A1c 8.2. Urine drug screen is unremarkable. IMAGIN. Ultrasound of bilateral lower extremities demonstrates no evidence of a deep venous thrombosis. 2. CT of the brain demonstrates less compression of the ventricles. Pneumocephalus. All things said, things are roughly stable. ASSESSMENT: 1. Acute respiratory failure secondary to inability to protect airway. 2. Hypertensive emergency. 3. Intraparenchymal hemorrhage of the left thalamus with intraventricular extension, status post craniotomy with external ventricular drain placement, postop day 3. DISCUSSION AND PLAN: We will continue supportive care through time. We will watch her neurologic exam closely. Hopefully, she will make a robust recovery over the next 48 to 72 hours. Supportive care will be continued including endotracheal intubation, and tube feeds. I will repeat laboratories tomorrow morning. Job ID: [id number]
--- NOTE | 2019-06-28 13:45 | PDOC.HOSPP ---
- Subjective Encounter Date: 06/28/19 Encounter Time: 10:20 Subjective: Keeps her eyes open, not responsive to painful stimulus... Spontaneous movements on the left side.. - Objective Vital Signs & Weight: Vital Signs (12 hours) Temp Pulse Resp BP 06/28/19 13:02 85 06/28/19 10:32 86 06/28/19 09:54 88 153/74 H 06/28/19 09:53 153/74 H 06/28/19 07:07 86 06/28/19 06:32 86 154/78 H 06/28/19 06:00 19 06/28/19 05:16 94 154/76 H 06/28/19 04:00 100.1 F H 14 06/28/19 02:52 76 06/28/19 02:30 92 160/77 H 06/28/19 02:00 101.4 F H 23 H Weight Admit Weight 138 lb Weight 145 lb 4.554 oz Most Recent Monitor Data Heart Rate from ECG 84 NIBP 143/67 NIBP BP-Mean 92 Respiration from ECG 21 SpO2 100 I&O: 06/27/19 06/28/19 06/29/19 06:59 06:59 06:59 Intake Total 3591.7 4069 Output Total 1965 2834 58 Balance 1626.7 1235 -58 Result Diagrams: 06/27/19 04:40 06/27/19 04:40 Additional Labs: Accuchecks 06/28/19 06/28/19 06/27/19 06:13 00:25 17:35 POC Glucose 260 H 229 H 239 H Hospitalist ROS - Medication Medications: Active Medications Generic Name Dose Route Start Last Admin Trade Name Freq PRN Reason Stop Dose Admin Acetaminophen 650 mg 06/25/19 19:18 06/28/19 02:09 Tylenol PO 650 mg Q6H PRN Administration Headache/Fever/MILD Pain 1-3 Carvedilol 6.25 mg 06/27/19 08:00 06/28/19 09:53 Coreg PO 6.25 mg BID-WM MATTHIAS Administration Hydralazine HCl 25 mg 06/27/19 09:00 06/28/19 09:54 Apresoline PO 25 mg TID MATTHIAS Administration Levetiracetam 500 mg/ Device 100 mls @ 200 mls/hr 06/25/19 21:00 06/28/19 10: 22 IVPB 100 mls BID MATTHIAS Administration Sodium Chloride 1,000 mls @ 80 mls/hr 06/25/19 19:15 06/28/19 10:00 Normal Saline 0.9% IV 1,000 mls .[id number] MATTHIAS Administration Cefazolin Sodium/Dextrose 2 gm 50 mls @ 100 mls/hr 06/25/19 22:00 06/28/19 05 :46 / Device IVPB 50 mls Q8HR MATTHIAS Administration Nicardipine HCl 50 mg/ Sodium 250 mls @ 0 mls/hr 06/26/19 00:45 06/28/19 09: 41 Chloride IVPB 250 mls INF PRN Administration TO MAINTAIN SBP < 150 Protocol As Directed Insulin Human Lispro 0 units 06/26/19 12:14 06/28/19 12:33 Humalog SC 6 unit .MODERATE SLIDING SC PRN Administration Moderate Correctional Scale Labetalol HCl 10 mg 06/25/19 19:08 06/28/19 06:32 Normodyne SLOW IVP 10 mg Q10MIN PRN Administration SBP > 150 or DBP > 90 Propofol 1,000 mg 06/25/19 18:49 06/26/19 21:56 Diprivan IV 07/25/19 18:49 1,000 mg INF PRN Administration TO ACHIEVE GOAL RASS Protocol Sodium Chloride 10 ml 06/25/19 19:08 06/28/19 02:32 Flush - Normal Saline IVF 10 ml PRN PRN Administration Saline Flush - Exam Neck: no JVD Heart: RRR Respiratory: CTAB Gastrointestinal: soft Extremities: no edema Hosp A/P (1) Acute encephalopathy Code(s): G93.40 - ENCEPHALOPATHY, UNSPECIFIED Status: Acute (2) Acute respiratory failure with hypoxia Code(s): J96.01 - ACUTE RESPIRATORY FAILURE WITH HYPOXIA Status: Acute (3) Diabetes type 2, uncontrolled Code(s): E11.65 - TYPE 2 DIABETES MELLITUS WITH HYPERGLYCEMIA Status: Acute (4) Hypertensive intracerebral hemorrhage Code(s): I61.9 - NONTRAUMATIC INTRACEREBRAL HEMORRHAGE, UNSPECIFIED Status: Acute (5) Noncompliance with medication regimen Code(s): Z91.14 - PATIENT'S OTHER NONCOMPLIANCE WITH MEDICATION REGIMEN Status : Chronic (6) Hypokalemia Code(s): E87.6 - HYPOKALEMIA Status: Resolved - Plan BP controlled.. Check electrolytes... Continue supportive therapy..
--- NOTE | 2019-06-28 13:57 | PDOC.PALFU ---
Palliative Care Follow-up Note Please refer to Palliative Care RN Notes under note section for updates on location of patient next of kin/surrogate decision maker.
--- NOTE | 2019-06-28 14:26 | PDOC.PALCO ---
Palliative Care Consult - Consult Details Requesting Physician: Dr Barroso Reason for Consult: advance directives assistance, family support, complex decision-making Family Members Present: None - Pertinent HPI Unmanaged hypertension, usual state of health when she had a sudden change and presented to the emergency room. 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 Post operative Day 3 in the CCU with left thalamic hemorrhage and hydrocephalus, EVD open. Fragile state currently with hopes of progress toward recovery over the weekend. Palliative Care assisting in contacting family for MPOA and initiating goals of care with hopes of meaningful recovery. - Social History Smoking Status: Unknown if ever smoked Living Situation: other (Estranged from Family) - Medications MAR Reviewed: Yes - Allergies Allergies/Adverse Reactions: Allergies Allergy/AdvReac Type Severity Reaction Status Date / Time Unable to Assess Allergy Verified 06/26/19 05:29 - Subjective Intubated, non responsive - ROS Non Response: due to endotracheal tube, due to mental status - Objective Vital Signs: Vital Signs - Most Recent Temp Pulse Resp BP Pulse Ox 100.1 F H 85 19 153/74 H 100 06/28/19 04:00 06/28/19 13:02 06/28/19 06:00 06/28/19 09:54 06/27/19 20:00 Palliative Performance Scale: 20 - Physical Exam Constitutional: encephalitic, ill appearing HEENT: moist MMs, sclera anicteric Respiratory: clear to auscultation bilateral Cardiovascular: RRR Gastrointestinal: non-tender, no distention, positive bowel sounds Genitourinary: loza catheter Musculoskeletal: no cyanosis, no clubbing, pulses present Deviation from normal: focal deficits Deviation from normal: non responsive - Problem List (1) Palliative care encounter Code(s): Z51.5 - ENCOUNTER FOR PALLIATIVE CARE Current Visit: Yes Status: Acute (2) Acute encephalopathy Code(s): G93.40 - ENCEPHALOPATHY, UNSPECIFIED Current Visit: Yes Status: Acute (3) Acute respiratory failure with hypoxia Code(s): J96.01 - ACUTE RESPIRATORY FAILURE WITH HYPOXIA Current Visit: Yes Status: Acute (4) Diabetes type 2, uncontrolled Code(s): E11.65 - TYPE 2 DIABETES MELLITUS WITH HYPERGLYCEMIA Current Visit: Yes Status: Acute (5) Hypertensive intracerebral hemorrhage Code(s): I61.9 - NONTRAUMATIC INTRACEREBRAL HEMORRHAGE, UNSPECIFIED Current Visit: Yes Status: Acute (6) Noncompliance with medication regimen Code(s): Z91.14 - PATIENT'S OTHER NONCOMPLIANCE WITH MEDICATION REGIMEN Current Visit: Yes Status: Chronic - Plan/Recommendations Plan: Attempts made by Palliative Care RN to locate patient next of kin and determine MPOA [facility] Patient son contacted and deciding if he will be the MPOA, if he will not the patient father states he will act as serrogate decision maker. Family estranged from patient. patient son [phone] Gregorio patient father [phone] [30] minutes spent on this encounter with >50% of the time in counseling and coordination of care. Thank you for this very appropriate consult.
[2019-06-28 14:30] LABS: Anion Gap 8 mmol/L (10-20); BUN (Urea Nitrogen) 23 mg/dL (7.0-18.7); Calc. Creatinine Clearance 88 mL/min (70-130); Calcium 8.3 mg/dL (7.8-10.44); Carbon Dioxide 24 mmol/L (22-29); Chloride 120 mmol/L (98-107); Estimated GFR-MDRD 76; Glucose 218 mg/dL (70-105); Potassium 3.7 mmol/L (3.5-5.1); Sodium 148 mmol/L (136-145)
[2019-06-29] MEDS: HumaLOG 300 UNITS/3 ML VIAL SC PRN ×5 (00:57→23:56)
[2019-06-29] MEDS: Labetalol HCl 100 MG/20 ML VIAL SLOW IVP PRN (02:03)
[2019-06-29] MEDS: niCARdipine 50 MG in Sodium Chloride 0.9% 250 ML 230 ML IVPB PRN ×4 (02:37→17:43)
[2019-06-29] MEDS: Sodium Chloride 0.9% 1,000 ML IV SCH ×2 (05:46→10:22)
[2019-06-29] MEDS: CEFAZOLIN 2 GM in Premix Bag 1 BAG IVPB SCH ×2 (05:46→14:00)
[2019-06-29] MEDS: Carvedilol 6.25 MG TAB PO SCH ×2 (08:25→17:43)
[2019-06-29 09:23] LABS: #Basophils 0.1 thou/uL (0.0-0.2); #Eosinphils 0.1 thou/uL (0.0-0.7); #Lymphocytes 1.6 thou/uL (1.20-3.40); #Monocytes 1.3 thou/uL (0.11-0.59); #Neutrophils 10.1 thou/uL (1.40-6.50); %Basophils 0.4 % (0.0-1.0); %Eosinophils 0.4 % (0.0-10.0); %Lymphocytes 12.3 % (21.0-51.0); %Monocytes 9.9 % (0.0-10.0); %Neutrophils 76.9 % (42.0-75.0); Hemoglobin 10.8 g/dL (12.0-16.0); Mean Corpuscular HGB CONC 32.5 g/dL (32.0-36.0); Mean Corpuscular Hemoglobin 27.9 pg (27.0-31.0); Mean Corpuscular Volume 85.8 fL (78.0-98.0); Mean Platelet Volume 10.9 fL (7.4-10.4); Platelet Count 230 thou/uL (130-400); RBC Distribution Width 12.8 % (11.5-14.5); Red Blood Cell (RBC) Count 3.88 mill/uL (4.20-5.40); White Blood Cell (WBC) Count 13.1 thou/uL (4.8-10.8)
[2019-06-29] MEDS: hydrALAZINE 25 MG TAB PO SCH ×3 (09:30→21:08)
[2019-06-29 09:37] LABS: Anion Gap 11 mmol/L (10-20); BUN (Urea Nitrogen) 19 mg/dL (7.0-18.7); Calc. Creatinine Clearance 94 mL/min (70-130); Calcium 8.5 mg/dL (7.8-10.44); Carbon Dioxide 22 mmol/L (22-29); Chloride 120 mmol/L (98-107); Estimated GFR-MDRD 79; Glucose 229 mg/dL (70-105); Potassium 3.4 mmol/L (3.5-5.1); Sodium 150 mmol/L (136-145)
--- NOTE | 2019-06-29 09:38 | PRG ---
DATE OF SERVICE: 06/29/2019 I saw Ms. Rutherford in our ICU room this morning. She remains intubated. She has an EVD in place, which is functioning. No events have been reported overnight. The Maximum temperature I see recorded is 101.2 degrees Fahrenheit. Her blood pressures have been between 130s and 140s. On examination, Ms. Rutherford opens her eyes to stimulation. She is beginning to move that right side more than she has in the past and localizing. She withdraws her lower extremities briskly. I checked the patency of the EVD, and although there are blood products in the tubing, there is continued CSF drainage. The patient's glucose is elevated. We have a sodium from yesterday of 148. White blood cell count 2 days ago was 20.6. For Ms. Rutherford, I am going to update her labs. We will send the current bag of CSF to the lab for culture. If she spikes another temperature, we will culture her sputum, blood, and urine. I am going to continue to leave the EVD open to drain as much of the intraventricular hemorrhage over the weekend as possible. Eventually, Ms. Rutherford will need placement hopefully in inpatient rehabilitation , but potentially in a correction until she can participate more in her therapies. Job ID: [id number] [facility]
--- NOTE | 2019-06-29 11:55 | PDOC.HOSPP ---
- Subjective Encounter Date: 06/29/19 Encounter Time: 10:40 Subjective: Responsive only to pain... - Objective Vital Signs & Weight: Vital Signs (12 hours) Temp Pulse Resp BP 06/29/19 10:59 75 06/29/19 10:00 20 06/29/19 09:30 73 144/75 H 06/29/19 08:25 118/67 06/29/19 08:00 100.9 F H 18 06/29/19 07:11 90 06/29/19 06:00 23 H 06/29/19 04:00 100.1 F H 06/29/19 02:03 86 158/82 H 06/29/19 02:00 17 06/29/19 00:00 100.1 F H 16 Weight Admit Weight 138 lb Weight 149 lb 7.574 oz Most Recent Monitor Data Heart Rate from ECG 76 NIBP 124/66 NIBP BP-Mean 85 Respiration from ECG 17 SpO2 100 I&O: 06/28/19 06/29/19 06/30/19 06:59 06:59 06:59 Intake Total 4069 5035 150 Output Total 2834 3220 728 Balance 1235 1815 -438 Result Diagrams: 06/29/19 09:11 06/29/19 09:11 Additional Labs: Accuchecks 06/29/19 06/29/19 06/28/19 06:12 00:42 18:15 POC Glucose 254 H 253 H 245 H 06/28/19 12:14 POC Glucose 266 H Hospitalist ROS - Medication Medications: Active Medications Generic Name Dose Route Start Last Admin Trade Name Freq PRN Reason Stop Dose Admin Acetaminophen 650 mg 06/25/19 19:18 06/28/19 02:09 Tylenol PO 650 mg Q6H PRN Administration Headache/Fever/MILD Pain 1-3 Carvedilol 6.25 mg 06/27/19 08:00 06/29/19 08:25 Coreg PO 6.25 mg BID-WM MATTHIAS Administration Hydralazine HCl 25 mg 06/27/19 09:00 06/29/19 09:30 Apresoline PO 25 mg TID MATTHIAS Administration Levetiracetam 500 mg/ Device 100 mls @ 200 mls/hr 06/25/19 21:00 06/29/19 10: 21 IVPB 100 mls BID MATTHIAS Administration Sodium Chloride 1,000 mls @ 80 mls/hr 06/25/19 19:15 06/29/19 10:22 Normal Saline 0.9% IV 1,000 mls .[id number] MATTHIAS Administration Cefazolin Sodium/Dextrose 2 gm 50 mls @ 100 mls/hr 06/25/19 22:00 06/29/19 05 :46 / Device IVPB 50 mls Q8HR MATTHIAS Administration Nicardipine HCl 50 mg/ Sodium 250 mls @ 0 mls/hr 06/26/19 00:45 06/29/19 06: 05 Chloride IVPB 250 mls INF PRN Administration TO MAINTAIN SBP < 150 Protocol As Directed Insulin Human Lispro 0 units 06/26/19 12:14 06/29/19 11:48 Humalog SC 6 unit .MODERATE SLIDING SC PRN Administration Moderate Correctional Scale Labetalol HCl 10 mg 06/25/19 19:08 06/29/19 02:03 Normodyne SLOW IVP 10 mg Q10MIN PRN Administration SBP > 150 or DBP > 90 Propofol 1,000 mg 06/25/19 18:49 06/26/19 21:56 Diprivan IV 07/25/19 18:49 1,000 mg INF PRN Administration TO ACHIEVE GOAL RASS Protocol Sodium Chloride 10 ml 06/25/19 19:08 06/28/19 02:32 Flush - Normal Saline IVF 10 ml PRN PRN Administration Saline Flush - Exam Neck: no JVD Heart: RRR Respiratory: CTAB Gastrointestinal: soft Extremities: no edema Hosp A/P (1) Acute encephalopathy Code(s): G93.40 - ENCEPHALOPATHY, UNSPECIFIED Status: Acute (2) Acute respiratory failure with hypoxia Code(s): J96.01 - ACUTE RESPIRATORY FAILURE WITH HYPOXIA Status: Acute (3) Diabetes type 2, uncontrolled Code(s): E11.65 - TYPE 2 DIABETES MELLITUS WITH HYPERGLYCEMIA Status: Acute (4) Hypertensive intracerebral hemorrhage Code(s): I61.9 - NONTRAUMATIC INTRACEREBRAL HEMORRHAGE, UNSPECIFIED Status: Acute (5) Noncompliance with medication regimen Code(s): Z91.14 - PATIENT'S OTHER NONCOMPLIANCE WITH MEDICATION REGIMEN Status : Chronic (6) Hypokalemia Code(s): E87.6 - HYPOKALEMIA Status: Resolved - Plan BP controlled.. Check electrolytes... Continue supportive therapy..
[2019-06-29] MEDS: Acetaminophen 325 MG TAB PO PRN ×2 (14:00→19:05)
[2019-06-29] MEDS ORDERED: Sodium Chloride 0.9% 1,000 ML IV SCH (14:24)
--- NOTE | 2019-06-29 14:56 | PRG ---
DATE OF SERVICE: 06/29/2019 SERVICE: Pulmonary Medicine. INTERVAL HISTORY: The patient is doing fine from respiratory standpoint. Breathing comfortably. That being said, neurologically, she has not made much recovery. She has remained off sedation since yesterday. She started to spike some fevers intermittently. Otherwise, no interval changes have occurred. PHYSICAL EXAMINATION: VITAL SIGNS: T-max 101.4, pulse 80, blood pressure 124/66, respirations 16, saturation is 100% on 21% FiO2 and a PEEP of 5. GENERAL: The patient is comatose. HEENT: Normocephalic, atraumatic. Sclerae white. Conjunctivae pink. Oral mucosa is moist. There are no lesions. LUNGS: Good air entry bilaterally with no prolonged expiratory phase or wheezing. HEART: Normal rate. Regular. ABDOMEN: Soft, nontender, nondistended. Bowel sounds are positive. MUSCULOSKELETAL: No cyanosis or clubbing. There is 1+ pitting throughout. LABORATORY DATA: WBC 13.1, hemoglobin 10.8, platelets 230,000. Sodium 150, potassium 3.4, chloride 120. Basic metabolic profile is otherwise unremarkable. Body fluid culture of the spinal fluid has red blood cells and white blood cells , though no organisms are identified. ASSESSMENT: 1. Acute respiratory failure secondary to inability to protect airway. 2. Hypertensive emergency. 3. Intraparenchymal hemorrhage of the left thalamus with intraventricular extension, status post craniotomy with an external ventricular drain placement, postop day 4. 4. Sepsis. DISCUSSION AND PLAN: The patient is doing fine from respiratory standpoint. We will increase free water flushes. IV fluids will be KVO. I will replace potassium and recheck magnesium tomorrow morning. Pulmonary/Critical Care will follow. Critical care time: 30 minutes. Job ID: [id number] [facility]
[2019-06-29] MEDS: Cefepime 2 GM in Sodium Chloride 0.9% 100 ML IVPB SCH (21:08)
[2019-06-29] MEDS: metroNIDAZOLE 500 MG in Premix Bag 1 BAG IVPB SCH (22:33)
[2019-06-29] MEDS: Vancomycin HCl 1 GM in Premix Bag 1 BAG IVPB SCH (23:49)
[2019-06-30] MEDS: niCARdipine 50 MG in Sodium Chloride 0.9% 250 ML 230 ML IVPB PRN ×6 (01:38→21:33)
[2019-06-30] MEDS: Labetalol HCl 100 MG/20 ML VIAL SLOW IVP PRN ×3 (02:01→07:16)
[2019-06-30] MEDS: hydrALAZINE 20 MG/ML VIAL SLOW IVP PRN (03:36)
[2019-06-30] MEDS: Acetaminophen 325 MG TAB PO PRN ×3 (04:13→19:58)
[2019-06-30 04:38] LABS: #Basophils 0.1 thou/uL (0.0-0.2); #Eosinphils 0.1 thou/uL (0.0-0.7); #Lymphocytes 1.6 thou/uL (1.20-3.40); #Monocytes 1.1 thou/uL (0.11-0.59); #Neutrophils 9.3 thou/uL (1.40-6.50); %Basophils 0.5 % (0.0-1.0); %Eosinophils 1.1 % (0.0-10.0); %Monocytes 9.3 % (0.0-10.0); %Neutrophils 76.1 % (42.0-75.0); Hemoglobin 11.1 g/dL (12.0-16.0); Mean Corpuscular HGB CONC 32.4 g/dL (32.0-36.0); Mean Corpuscular Hemoglobin 27.9 pg (27.0-31.0); Mean Corpuscular Volume 86.1 fL (78.0-98.0); Mean Platelet Volume 11.6 fL (7.4-10.4); Platelet Count 238 thou/uL (130-400); RBC Distribution Width 12.9 % (11.5-14.5); Red Blood Cell (RBC) Count 3.97 mill/uL (4.20-5.40); White Blood Cell (WBC) Count 12.2 thou/uL (4.8-10.8)
[2019-06-30 05:04] LABS: Anion Gap 11 mmol/L (10-20); BUN (Urea Nitrogen) 21 mg/dL (7.0-18.7); Calc. Creatinine Clearance 97 mL/min (70-130); Calcium 8.5 mg/dL (7.8-10.44); Carbon Dioxide 24 mmol/L (22-29); Chloride 118 mmol/L (98-107); Estimated GFR-MDRD 83; Glucose 254 mg/dL (70-105); Potassium 3.7 mmol/L (3.5-5.1); Sodium 149 mmol/L (136-145)
[2019-06-30 05:05] LABS: Phosphorus 3.1 mg/dL (2.3-4.7)
[2019-06-30] MEDS: metroNIDAZOLE 500 MG in Premix Bag 1 BAG IVPB SCH ×3 (06:35→21:30)
[2019-06-30] MEDS: HumaLOG 300 UNITS/3 ML VIAL SC PRN ×3 (06:38→18:03)
[2019-06-30] MEDS: Carvedilol 6.25 MG TAB PO SCH ×2 (08:40→16:08)
[2019-06-30] MEDS: hydrALAZINE 25 MG TAB PO SCH ×3 (08:40→20:01)
[2019-06-30] MEDS: Cefepime 2 GM in Sodium Chloride 0.9% 100 ML IVPB SCH ×2 (08:41→20:01)
--- NOTE | 2019-06-30 10:13 | PDOC.HOSPP ---
- Subjective Encounter Date: 06/30/19 Encounter Time: 09:40 Subjective: Sluggish response to pain.. - Objective Vital Signs & Weight: Vital Signs (12 hours) Temp Pulse Resp BP Pulse Ox 06/30/19 08:40 85 152/84 H 06/30/19 08:00 20 99 06/30/19 07:20 88 06/30/19 07:16 96 183/96 H 06/30/19 07:00 100.8 F H 06/30/19 06:00 17 06/30/19 04:18 85 156/76 H 06/30/19 04:00 101.1 F H 24 H 06/30/19 03:36 79 170/85 H 06/30/19 03:13 80 152/78 H 06/30/19 02:01 81 162/85 H 06/30/19 02:00 18 06/30/19 00:00 99.5 F 31 H 06/29/19 22:36 72 127/71 Weight Admit Weight 138 lb Weight 140 lb 10.479 oz Most Recent Monitor Data Heart Rate from ECG 85 NIBP 144/74 NIBP BP-Mean 97 Respiration from ECG 19 SpO2 99 I&O: 06/29/19 06/30/19 07/01/19 06:59 06:59 06:59 Intake Total 5035 5512.6 100 Output Total 3220 3952 589 Balance 1815 1560.6 -489 Result Diagrams: 06/30/19 03:50 06/30/19 03:50 Additional Labs: Accuchecks 06/30/19 06/29/19 06/29/19 06:41 23:59 18:23 POC Glucose 242 H 298 H 260 H 06/29/19 11:50 POC Glucose 277 H Hospitalist ROS - Medication Medications: Active Medications Generic Name Dose Route Start Last Admin Trade Name Freq PRN Reason Stop Dose Admin Acetaminophen 650 mg 06/25/19 19:18 06/30/19 04:13 Tylenol PO 650 mg Q6H PRN Administration Headache/Fever/MILD Pain 1-3 Carvedilol 12.5 mg 06/29/19 17:00 06/30/19 08:40 Coreg PO 12.5 mg BID-WM MATTHIAS Administration Hydralazine HCl 10 mg 06/25/19 19:24 06/30/19 03:36 Apresoline SLOW IVP 10 mg Q15MIN PRN Administration Sbp Greater Than 150 Hydralazine HCl 50 mg 06/29/19 15:00 06/30/19 08:40 Apresoline PO 50 mg TID MATTHIAS Administration Levetiracetam 500 mg/ Device 100 mls @ 200 mls/hr 06/25/19 21:00 06/30/19 08: 40 IVPB 100 mls BID MATTHIAS Administration Nicardipine HCl 50 mg/ Sodium 250 mls @ 0 mls/hr 06/26/19 00:45 06/30/19 06: 36 Chloride IVPB 250 mls INF PRN Administration TO MAINTAIN SBP < 150 Protocol As Directed Cefepime HCl 2 gm/ Sodium 100 mls @ 200 mls/hr 06/29/19 21:00 06/30/19 08:41 Chloride IVPB 100 mls Q12HR MATTHIAS Administration Metronidazole 500 mg/ Device 100 mls @ 100 mls/hr 06/29/19 22:00 06/30/19 06: 35 IVPB 100 mls Q8HR MATTHIAS Administration Vancomycin HCl 1 gm/ Device 200 mls @ 200 mls/hr 06/29/19 23:00 06/29/19 23: 49 IVPB 200 mls 1100,2300 MATTHIAS Administration Insulin Human Lispro 0 units 06/26/19 12:14 06/30/19 06:38 Humalog SC 4 unit .MODERATE SLIDING SC PRN Administration Moderate Correctional Scale Labetalol HCl 10 mg 06/25/19 19:08 06/30/19 07:16 Normodyne SLOW IVP 10 mg Q10MIN PRN Administration SBP > 150 or DBP > 90 Propofol 1,000 mg 06/25/19 18:49 06/26/19 21:56 Diprivan IV 07/25/19 18:49 1,000 mg INF PRN Administration TO ACHIEVE GOAL RASS Protocol Sodium Chloride 10 ml 06/25/19 19:08 06/28/19 02:32 Flush - Normal Saline IVF 10 ml PRN PRN Administration Saline Flush - Exam Neck: no JVD Heart: RRR Respiratory: CTAB Gastrointestinal: soft Extremities: no edema Hosp A/P (1) Acute encephalopathy Code(s): G93.40 - ENCEPHALOPATHY, UNSPECIFIED Status: Acute (2) Acute respiratory failure with hypoxia Code(s): J96.01 - ACUTE RESPIRATORY FAILURE WITH HYPOXIA Status: Acute (3) Diabetes type 2, uncontrolled Code(s): E11.65 - TYPE 2 DIABETES MELLITUS WITH HYPERGLYCEMIA Status: Acute (4) Hypertensive intracerebral hemorrhage Code(s): I61.9 - NONTRAUMATIC INTRACEREBRAL HEMORRHAGE, UNSPECIFIED Status: Acute (5) Noncompliance with medication regimen Code(s): Z91.14 - PATIENT'S OTHER NONCOMPLIANCE WITH MEDICATION REGIMEN Status : Chronic (6) Hypokalemia Code(s): E87.6 - HYPOKALEMIA Status: Resolved - Plan BP controlled.. Check electrolytes... Has been spiking fever, on antibiotics.. ?central fever. f/u BxC. Continue supportive therapy..
--- NOTE | 2019-06-30 10:27 | PRG ---
DATE OF SERVICE: 06/30/2019 I saw Ms. Rutherford on rounds this morning. She remains in the ICU. Yesterday, her temperature spiked to 102.6. Blood pressures have ranged from the 150s to 180s before she was placed back on a Cardene drip. The blood pressures now are in the 140s. On examination, Ms. Rutherford opens her eyes to stimulation. She moves both upper extremities with stimulation. There is definite withdrawal if not localization. The sodium this morning is 149. The white blood cell count is 12.2. Spinal fluid continues to drain from the EVD at around 10 mL an hour. Ms. Rutherford has numerous cultures pending. We sent a bag of CSF yesterday and the Gram stain was negative. There has been no growth to date in her blood or urine. Ms. Rutherford's fevers may be from blood in the CSF space. A cooling blanket can be used. I do not plan on weaning her EVD as it looks like it is required currently. Blood pressures are under better control with an IV drip, but oral medications may need to be adjusted for her to come off that medication. Job ID: [id number] [facility]
[2019-06-30] MEDS: Vancomycin HCl 1 GM in Premix Bag 1 BAG IVPB SCH ×2 (11:19→22:40)
[2019-06-30] MEDS ORDERED: Furosemide 20 MG/2 ML VIAL SLOW IVP SCH (15:30)
--- NOTE | 2019-06-30 15:39 | PRG ---
DATE OF SERVICE: 06/30/2019 SERVICE: Pulmonary Medicine. INTERVAL HISTORY: The patient's neurologic condition is quite devastating. That being said, the rest of her body seems to be putting itself back together. She did not have any significant events overnight. She continues to have intermittent temperatures. The highest overnight was 103. Otherwise, there were no events. PHYSICAL EXAMINATION: VITAL SIGNS: T-max 103, pulse 86, blood pressure 148/76, respirations 19, saturation 100%, on 23% FiO2 and a PEEP of 5. GENERAL: The patient is intubated with no sedation. HEENT: Normocephalic. There is a ventriculostomy drain in place. LUNGS: Decent air entry. There is no prolonged expiratory phase, wheezing, or crackles present. HEART: Normal rate, regular. ABDOMEN: Soft, nontender, and nondistended. Bowel sounds are positive. MUSCULOSKELETAL: No cyanosis or clubbing. There is trace pitting in bilateral lower extremities. NEUROLOGIC: Grossly nonfocal. LABORATORY DATA: WBC 12.2, hemoglobin 11.1, and platelets 238,000. INR 1.1. Sodium 149 and gently downtrending. Chloride 118, has also improved. Potassium 3.7. Creatinine 0.74. Magnesium and phosphorous fall within the normal limits. Urinalysis is unremarkable. Urine drug screen is negative. Blood cultures x2, urine culture unremarkable. ASSESSMENT: 1. Acute respiratory failure secondary to inability to protect airway. 2. Hypertensive emergency. 3. Intraparenchymal hemorrhage of the left thalamus with intraventricular extension, status post craniotomy with an external ventricular drain in place, postop day 5. 4. Sepsis. DISCUSSION AND PLAN: The patient is doing okay from a respiratory standpoint. Neurologically, she still has a devastating injury. I will continue our free water flushes where they are. I would like to KVO her IV fluids for the next 24 hours. I will continue replacing electrolytes as needed. Pulmonary/Critical Care will follow. CRITICAL CARE TIME: 30 minutes. Job ID: [id number]
[2019-07-01] MEDS: HumaLOG 300 UNITS/3 ML VIAL SC PRN ×4 (00:42→18:15)
[2019-07-01] MEDS: niCARdipine 50 MG in Sodium Chloride 0.9% 250 ML 230 ML IVPB PRN ×6 (02:18→20:24)
[2019-07-01] MEDS: hydrALAZINE 20 MG/ML VIAL SLOW IVP PRN ×2 (03:17→03:59)
[2019-07-01] MEDS: Acetaminophen 325 MG TAB PO PRN ×2 (03:57→16:41)
[2019-07-01] MEDS: metroNIDAZOLE 500 MG in Premix Bag 1 BAG IVPB SCH ×3 (05:24→21:32)
[2019-07-01] MEDS: Furosemide 20 MG/2 ML VIAL SLOW IVP SCH (05:24)
--- NOTE | 2019-07-01 08:23 | RAD ---
XR Chest 1 View Portable History: Intubated patient Comparison: Radiograph June 25, 2019 Findings: Patient is intubated endotracheal tube tip at the level of clavicles. The central venous ca theter tip at the inferior SVC. Enteric tube tip in the gastric fundus. Lungs are hypoinflated. Mild bibasilar atelectatic changes. No acute osseous abnormality. Impression: Satisfactory position of the lines and tubes.
[2019-07-01] MEDS: hydrALAZINE 25 MG TAB PO SCH ×3 (08:39→20:25)
[2019-07-01] MEDS: Carvedilol 6.25 MG TAB PO SCH ×2 (08:39→16:41)
[2019-07-01] MEDS: Cefepime 2 GM in Sodium Chloride 0.9% 100 ML IVPB SCH ×2 (09:45→20:25)
--- NOTE | 2019-07-01 10:37 | PRG ---
DATE OF SERVICE: 07/01/2019 SERVICE: Pulmonary Medicine. INTERVAL HISTORY: The patient is doing poorly from a neurologic standpoint. She continues to have blood draining from her head. She is on a nicardipine drip still. She cannot provide any additional elements of the history. Other than fevers, there were no overnight events. PHYSICAL EXAMINATION: VITAL SIGNS: Afebrile, pulse 96, blood pressure 147/75, respirations 21, and saturation 98% on 21% FiO2 and a PEEP of 5. GENERAL: The patient is intubated. She is on no sedation. HEENT: Normocephalic. There is EVD drain in place. Sclerae white. Conjunctivae pink. Oral mucosa is moist without lesions. LUNGS: Decent air entry with no prolonged expiratory phase. Rhonchi are present. HEART: Normal rate. Regular. ABDOMEN: Soft, nontender, and nondistended. Bowel sounds are positive. MUSCULOSKELETAL: No cyanosis or clubbing. There is diffuse 1 to 2+ pitting throughout. LABORATORY DATA: WBC 12.2, hemoglobin 11.1, and platelets 238,000. INR 1.0. Phosphorus 3.1. Urine drug screen is unremarkable. Blood cultures x2, urine culture, respiratory culture, and body fluid culture all unremarkable to date. IMAGING DATA: Chest x-ray demonstrates no acute cardiopulmonary abnormality. There is an endotracheal tube in very good position. Enteric catheter of course is midline below the level of the diaphragm and in the region of the expected stomach. Left subclavian central venous catheter is in good position. ASSESSMENT: 1. Acute respiratory failure secondary to inability to protect airway. 2. Hypertensive emergency. 3. Intraparenchymal hemorrhage of the left thalamus with intraventricular extension, status post craniotomy with an external ventricular drain in place, postop day 6. 4. Sepsis. DISCUSSION AND PLAN: The patient is doing okay from respiratory standpoint. We will repeat laboratories tomorrow morning. The supportive care will be continued. We will continue the free water through tomorrow. Antibiotics will be maintained unless we have a different source to go after. CRITICAL CARE TIME: 30 minutes. Job ID: [id number]
[2019-07-01 10:44] LABS: Vancomycin, Trough 10.7 ug/mL
[2019-07-01] MEDS: Vancomycin HCl 1.25 GM in Sodium Chloride 0.9% 250 ML 250 ML IVPB SCH ×2 (11:57→23:22)
--- NOTE | 2019-07-01 12:20 | PRG ---
DATE OF SERVICE: 07/01/2019 This is Pedro Luis Enrique PA-C dictating a report for Anam Barroso MD. This is a postoperative note. Ms. Rutherford is postoperative day #6 having undergone a left transcortical approach for sounds like bleed evacuation and EVD placement. Her EVD output remains about 10 an hour. ICPs have remained about 5 to 6 according to nursing staff. The patient will spontaneously open her eyes. She does not formally follow commands she will open her eyes to command. She withdraws to noxious stimulus in all the extremities except the left arm. Her EVD output remains extremely blood-tinged. I would like to keep it at zero level at the ear canal or even below to continue with . She has been spiking fevers. We will likely send more CSF for sampling, but apparently, all of her workup has been negative. We will continue to monitor the patient. She will likely need shunt placement at a later time and likely will need PEG and trach placement as well. Please call with any changes in the patient's neurologic status. Job ID: [id number]
--- NOTE | 2019-07-01 21:20 | PDOC.HOSPP ---
- Subjective Encounter Date: 07/01/19 Encounter Time: 16:00 Subjective: CC: f/u hypertensive emergency The patient is intubated, on nicardipine drip - Objective Vital Signs & Weight: Vital Signs (12 hours) Temp Pulse Pulse Pulse Resp BP BP 07/01/19 20:25 81 134/69 07/01/19 20:00 19 07/01/19 19:17 81 127/68 07/01/19 19:00 99.3 F 07/01/19 18:00 20 07/01/19 16:41 151/75 H 07/01/19 16:00 101.6 F H 21 H 07/01/19 14:40 91 146/75 H 07/01/19 14:34 90 146/76 H 07/01/19 14:00 21 H 07/01/19 13:45 91 89 138/92 H 07/01/19 12:00 99.9 F H 22 H 07/01/19 10:17 88 133/70 07/01/19 10:00 21 H BP Pulse Ox Pulse Ox Pulse Ox 07/01/19 20:25 07/01/19 20:00 96 07/01/19 19:17 07/01/19 19:00 07/01/19 18:00 07/01/19 16:41 07/01/19 16:00 07/01/19 14:40 07/01/19 14:34 07/01/19 14:00 07/01/19 13:45 160/81 H 97 95 07/01/19 12:00 07/01/19 10:17 07/01/19 10:00 Weight Admit Weight 138 lb Weight 147 lb 0.773 oz Most Recent Monitor Data Heart Rate from ECG 73 NIBP 124/64 NIBP BP-Mean 84 Respiration from ECG 16 SpO2 100 I&O: 06/30/19 07/01/19 07/02/19 06:59 06:59 06:59 Intake Total 5512.6 7881 7893 Output Total 5660 8127 1948 Balance 1560.6 -77 1919 Result Diagrams: 06/30/19 03:50 06/30/19 03:50 Additional Labs: Accuchecks 07/01/19 07/01/19 07/01/19 14:36 06:00 00:28 POC Glucose 273 H 284 H 266 H Hospitalist ROS - Medication Medications: Active Medications Generic Name Dose Route Start Last Admin Trade Name Freq PRN Reason Stop Dose Admin Carvedilol 12.5 mg 06/29/19 17:00 07/01/19 16:41 Coreg PO 12.5 mg BID-WM MATTHIAS Administration Furosemide 20 mg 07/01/19 06:00 07/01/19 05:24 Lasix SLOW IVP 07/02/19 06:01 20 mg 0600 MATTHIAS Administration Hydralazine HCl 10 mg 06/25/19 19:24 07/01/19 03:59 Apresoline SLOW IVP 10 mg Q15MIN PRN Administration Sbp Greater Than 150 Hydralazine HCl 50 mg 06/29/19 15:00 07/01/19 20:25 Apresoline PO 50 mg TID MATTHIAS Administration Levetiracetam 500 mg/ Device 100 mls @ 200 mls/hr 06/25/19 21:00 07/01/19 20: 25 IVPB 100 mls BID MATTHIAS Administration Nicardipine HCl 50 mg/ Sodium 250 mls @ 0 mls/hr 06/26/19 00:45 07/01/19 20: 24 Chloride IVPB 250 mls INF PRN Administration TO MAINTAIN SBP < 150 Protocol As Directed Cefepime HCl 2 gm/ Sodium 100 mls @ 200 mls/hr 06/29/19 21:00 07/01/19 20:25 Chloride IVPB 100 mls Q12HR MATTHIAS Administration Metronidazole 500 mg/ Device 100 mls @ 100 mls/hr 06/29/19 22:00 07/01/19 14: 14 IVPB 100 mls Q8HR MATTHIAS Administration Vancomycin HCl 1.25 gm/ Sodium 250 mls @ 166.667 mls/hr 07/01/19 11:00 11:57 Chloride IVPB 250 mls 1100,2300 MATTHIAS Administration Insulin Human Lispro 0 units 06/26/19 12:14 07/01/19 18:15 Humalog SC 4 unit .MODERATE SLIDING SC PRN Administration Moderate Correctional Scale Labetalol HCl 10 mg 06/25/19 19:08 06/30/19 07:16 Normodyne SLOW IVP 10 mg Q10MIN PRN Administration SBP > 150 or DBP > 90 Sodium Chloride 10 ml 06/25/19 19:08 06/28/19 02:32 Flush - Normal Saline IVF 10 ml PRN PRN Administration Saline Flush Hosp A/P - Plan CT brain 06/27: large left base and tiny hemorrhage with extension into ventricular system Dopplers: no DVT Chest X ray: lungs are hypoinflated This is 49 year old female who presented with hypertensive emergency with intra -cranial hemorrhage #Hypertensive emergency #Intracranial hemorrhage #Acute hypoxic respiratory failure s/p intubation #Leukocytosis - improving #Anemia - CT head showed large left basis and tiny hemorrhage into ventricular system. She is s/p bleed evacuation and EVD placement POD6 -continue nicardipine drip and hydralazine 50 mg tid and coreg - she is intubated, not following command - repeat CSF studies being sent by neurosurgery, may need shunt placement - she is on IV vanc, IV cefepime and flagyl. WBC is coming down Dispo: pending improvement in mental status
[2019-07-01] MEDS: Acetaminophen 650 MG/20.3 ML UDCUP PER TUBE PRN (23:54)
[2019-07-02] MEDS: niCARdipine 50 MG in Sodium Chloride 0.9% 250 ML 230 ML IVPB PRN ×5 (00:14→18:14)
[2019-07-02] MEDS: HumaLOG 300 UNITS/3 ML VIAL SC PRN ×4 (00:22→18:19)
[2019-07-02 04:37] LABS: #Basophils 0.1 thou/uL (0.0-0.2); #Eosinphils 0.1 thou/uL (0.0-0.7); #Lymphocytes 1.8 thou/uL (1.20-3.40); #Monocytes 1.4 thou/uL (0.11-0.59); #Neutrophils 9.5 thou/uL (1.40-6.50); %Basophils 0.5 % (0.0-1.0); %Eosinophils 0.7 % (0.0-10.0); %Lymphocytes 13.9 % (21.0-51.0); %Monocytes 10.9 % (0.0-10.0); %Neutrophils 73.9 % (42.0-75.0); Hemoglobin 10.6 g/dL (12.0-16.0); Mean Corpuscular HGB CONC 32.5 g/dL (32.0-36.0); Mean Corpuscular Volume 86.2 fL (78.0-98.0); Mean Platelet Volume 11.8 fL (7.4-10.4); Platelet Count 239 thou/uL (130-400); RBC Distribution Width 12.9 % (11.5-14.5); Red Blood Cell (RBC) Count 3.77 mill/uL (4.20-5.40); White Blood Cell (WBC) Count 12.8 thou/uL (4.8-10.8)
[2019-07-02 04:43] LABS: INR-International Normal Ratio 1.2; Prothrombin Time 14.7 SEC (12.0-14.7)
[2019-07-02 05:07] LABS: Phosphorus 3.1 mg/dL (2.3-4.7)
[2019-07-02 05:08] LABS: Anion Gap 11 mmol/L (10-20); BUN (Urea Nitrogen) 23 mg/dL (7.0-18.7); Calc. Creatinine Clearance 86 mL/min (70-130); Calcium 7.8 mg/dL (7.8-10.44); Carbon Dioxide 23 mmol/L (22-29); Chloride 117 mmol/L (98-107); Estimated GFR-MDRD 74; Glucose 260 mg/dL (70-105); Potassium 3.3 mmol/L (3.5-5.1); Sodium 148 mmol/L (136-145)
[2019-07-02] MEDS: Furosemide 20 MG/2 ML VIAL SLOW IVP SCH (05:08)
[2019-07-02] MEDS: metroNIDAZOLE 500 MG in Premix Bag 1 BAG IVPB SCH ×2 (05:08→14:35)
[2019-07-02] MEDS: Carvedilol 6.25 MG TAB PO SCH ×2 (08:56→18:14)
[2019-07-02] MEDS ORDERED: CCU Electrolyte Replacement 1 EACH FS ONE (09:38)
[2019-07-02] MEDS ORDERED: CCU ELECTROLYTE REPLACEMENT PROTOCOL FS PRN (09:46)
[2019-07-02] MEDS ORDERED: Potassium Phosphate 9 MMOL in Sodium Chloride 0.9% 100 ML IVPB PRN (09:46)
[2019-07-02] MEDS ORDERED: PHOS-NAK 1 PKT PACK PO PRN ×2 (09:46)
[2019-07-02] MEDS ORDERED: Potassium Chloride 20 MEQ TAB PO PRN (09:46)
[2019-07-02] MEDS ORDERED: Potassium Chloride 40 MEQ in Sodium Chloride 0.9% 250 ML 250 ML IVPB PRN (09:46)
[2019-07-02] MEDS ORDERED: Potassium Chloride 40 MEQ in Premix Bag 1 BAG IVPB PRN (09:46)
[2019-07-02] MEDS ORDERED: Magnesium 2 GM/50 ML 2 GM in Premix Bag 1 BAG IVPB PRN (09:46)
[2019-07-02] MEDS ORDERED: Magnesium Oxide 400 MG TAB PO PRN ×2 (09:46)
[2019-07-02] MEDS ORDERED: Potassium Phosphate 15 MMOL in Sodium Chloride 0.9% 250 ML 250 ML IV PRN (09:46)
[2019-07-02] MEDS ORDERED: Potassium Phosphate 12 MMOL in Sodium Chloride 0.9% 250 ML 250 ML IV PRN (09:46)
[2019-07-02] MEDS: Cefepime 2 GM in Sodium Chloride 0.9% 100 ML IVPB SCH ×2 (09:57→20:54)
[2019-07-02] MEDS: hydrALAZINE 25 MG TAB PO SCH ×3 (09:59→20:55)
--- NOTE | 2019-07-02 10:18 | ULT ---
BILATERAL LOWER EXTREMITY VENOUS DOPPLER ULTRASOUND: Date: 07/02/2019 HISTORY: Impaired mobility, recent surgery, lower extremity swelling bilaterally. TECHNIQUE: Beyer scale ultrasound with color flow and spectral Doppler imaging of the deep venous systems of the lower extremities was performed bilaterally. FINDINGS: There is good flow, compression, and augmentation noted in the common femoral, femoral, deep femoral, popliteal, posterior tibial, and greater saphenous veins on either side. IMPRESSION: No evidence of deep venous thrombosis in either lower extremity. POS: OFF
[2019-07-02] MEDS: Vancomycin HCl 1.25 GM in Sodium Chloride 0.9% 250 ML 250 ML IVPB SCH (11:00)
[2019-07-02] MEDS: Potassium Chloride 10 MEQ/100 ML PREMIX BAG IVPB SCH ×3 (11:21→13:47)
--- NOTE | 2019-07-02 11:37 | PRG ---
DATE OF SERVICE: 07/02/2019 Ms. Rutherford is now 1 week into her hospitalization. She remains with a poor exam. She does weakly open her eyes to command and localizes on the right side and localizes weakly. However, again, her EVD remains open at 0 and she is putting out approximately 10 mL hourly of blood tinged CSF. She is hypertensive, tachycardic, and has required re-initiation of the nicardipine and has also had evidence of fever. All cultures have been negative. She is on vancomycin, cefepime, and Flagyl. I suspect the source of the fever is diencephalic and this is a form of diencephalic storming, in particular given the tachycardia and hypertension recurrence as she had been off the nicardipine. I discussed with her best friend who is at the bedside what Ms. Rutherford would want in these situations and let her know that there is 0 chance in my opinion that she is ever going to have any type of independent life and she states that Ms. Rutherford would be very unsupportive of continuing aggressive care if she did not have the chance for full independence. I think we should give another day or two, but we will bring Palliative Care in and start to help in regard to getting family involved to make a decision, but my recommendation is going to be that if we do not see any meaningful gains in the next 48 hours that we will plan for palliative care or that we make plans for withdrawal of care. Job ID: [id number]
[2019-07-02] MEDS ORDERED: Furosemide 40 MG/4 ML VIAL SLOW IVP SCH (15:15)
--- NOTE | 2019-07-02 15:27 | PRG ---
DATE OF SERVICE: 07/02/2019 SERVICE: Pulmonary Medicine. INTERVAL HISTORY: The patient is doing poorly from a neurologic standpoint. Respiratory turner, things are going okay. She continues to have some intermittent fevers. Otherwise, there was no interval change to her condition. PHYSICAL EXAMINATION: VITAL SIGNS: Afebrile, currently with a T-max overnight of 101.6. Pulse 79, blood pressure 116/63, respirations 24, saturation 97% on room air. GENERAL: The patient is intubated. She is comatose. HEENT: Normocephalic and atraumatic. Sclerae white. Conjunctivae pink. Oral mucosa is moist without lesions. LUNGS: Decent air entry. No prolonged expiratory phase present. Extensive rhonchi are noted. HEART: Normal rate, regular. ABDOMEN: Soft, nontender, nondistended. Bowel sounds are positive. MUSCULOSKELETAL: No cyanosis or clubbing. There is diffuse pitting throughout. NEUROLOGIC: Grossly nonfocal. LABORATORY DATA: WBC 12.8, hemoglobin 10.6, platelets 239,000. INR 1.2. Potassium 3.3, sodium is gently downtrending to 148. Basic metabolic profile is otherwise unremarkable. Magnesium and phosphorus are normal. All culture results are essentially unremarkable. IMAGING: Ultrasound of the bilateral lower extremities demonstrates no evidence for DVT. ASSESSMENT: 1. Acute respiratory failure secondary to inability to protect airway. 2. Hypertensive emergency. 3. Intraparenchymal hemorrhage of the left thalamus with intraventricular extension, status post craniotomy with external ventricular drain in place, postop day 7. 4. Sepsis. DISCUSSION AND PLAN: The patient is doing fine from respiratory standpoint. At this point, if she does not have a good chance of meaningful neurologic recovery, we will need to make the transition over to comfort measures only. That being said, if she does have a chance of some functional recovery, we should likely proceed with PEG tube and tracheostomy. She is unlikely to make a meaningful recovery in the next week. Pulmonary/Critical Care will continue to follow in this location. Potassium to be replaced today, we will continue to diurese her down to euvolemia. CRITICAL CARE TIME: 30 minutes. Job ID: [id number]
--- NOTE | 2019-07-02 16:33 | PDOC.HOSPP ---
- Subjective Encounter Date: 07/02/19 Encounter Time: 12:00 Subjective: THe patient is intubated. She is not on sedation. Her nicardipine drip is at 12. She has some EVD output. Temp is 100.3 - Objective Vital Signs & Weight: Vital Signs (12 hours) Temp Pulse Resp BP Pulse Ox 07/02/19 16:09 84 135/71 07/02/19 14:36 79 116/63 07/02/19 14:00 20 07/02/19 12:00 100.3 F H 23 H 07/02/19 10:33 94 151/81 H 07/02/19 10:00 24 H 07/02/19 09:59 95 153/81 H 07/02/19 08:56 161/85 H 07/02/19 08:00 100.4 F H 21 H 07/02/19 07:56 96 07/02/19 07:08 99 155/86 H 07/02/19 06:00 22 H Weight Admit Weight 138 lb Weight 145 lb 11.609 oz Most Recent Monitor Data Heart Rate from ECG 83 NIBP 127/71 NIBP BP-Mean 89 Respiration from ECG 26 SpO2 100 I&O: 07/01/19 07/02/19 07/03/19 06:59 06:59 06:59 Intake Total 4681 6091 666 Output Total 0434 6198 1671 Balance -77 9741 -1809 Result Diagrams: 07/02/19 03:10 07/02/19 03:10 Additional Labs: Accuchecks 07/02/19 07/02/19 07/01/19 13:25 00:20 18:02 POC Glucose 274 H 311 H 242 H Hospitalist ROS - Review of Systems ROS unobtainable: due to endotracheal tube - Medication Medications: Active Medications Generic Name Dose Route Start Last Admin Trade Name Freq PRN Reason Stop Dose Admin Acetaminophen 650 mg 07/01/19 17:02 07/01/19 23:54 Tylenol Elixir PER TUBE 650 mg Q4H PRN Administration Headache/Fever or Pain Carvedilol 12.5 mg 06/29/19 17:00 07/02/19 08:56 Coreg PO 12.5 mg BID-WM MATTHIAS Administration Hydralazine HCl 10 mg 06/25/19 19:24 07/01/19 03:59 Apresoline SLOW IVP 10 mg Q15MIN PRN Administration Sbp Greater Than 150 Hydralazine HCl 50 mg 06/29/19 15:00 07/02/19 14:36 Apresoline PO 50 mg TID MATTHIAS Administration Levetiracetam 500 mg/ Device 100 mls @ 200 mls/hr 06/25/19 21:00 07/02/19 09: 59 IVPB 100 mls BID MATTHIAS Administration Nicardipine HCl 50 mg/ Sodium 250 mls @ 0 mls/hr 06/26/19 00:45 07/02/19 13: 37 Chloride IVPB 250 mls INF PRN Administration TO MAINTAIN SBP < 150 Protocol As Directed Cefepime HCl 2 gm/ Sodium 100 mls @ 200 mls/hr 06/29/19 21:00 07/02/19 09:57 Chloride IVPB 100 mls Q12HR MATTHIAS Administration Insulin Human Lispro 0 units 06/26/19 12:14 07/02/19 13:38 Humalog SC 6 unit .MODERATE SLIDING SC PRN Administration Moderate Correctional Scale Labetalol HCl 10 mg 06/25/19 19:08 06/30/19 07:16 Normodyne SLOW IVP 10 mg Q10MIN PRN Administration SBP > 150 or DBP > 90 Sodium Chloride 10 ml 06/25/19 19:08 06/28/19 02:32 Flush - Normal Saline IVF 10 ml PRN PRN Administration Saline Flush - Exam General Appearance: NAD General - other findings: intubated, sedAted Eye: PERRL, anicteric sclera ENT: normocephalic atraumatic, no oropharyngeal lesions Neck: no JVD Heart: RRR, no murmur, no gallops, no rubs Respiratory: CTAB, no wheezes, no rales, no ronchi Gastrointestinal: soft, non-tender, non-distended Extremities: no cyanosis, no clubbing, no edema Skin: normal turgor, no lesions, no rashes Neurological: cranial nerve grossly intact, normal sensation to touch, no focal deficits, no new deficit Neurological - other findings: not responding, Hosp A/P - Plan CT brain 06/27: large left base and tiny hemorrhage with extension into ventricular system Dopplers: no DVT Chest X ray: lungs are hypoinflated This is 49 year old female who presented with hypertensive emergency with intra -cranial hemorrhage #Hypertensive emergency #Intracranial hemorrhage #Acute hypoxic respiratory failure s/p intubation #Leukocytosis - improving #Anemia - CT head showed large left basis and tiny hemorrhage into ventricular system. She is s/p bleed evacuation and EVD placement POD7 -continue nicardipine drip and hydralazine 50 mg tid and coreg - she is intubated, not following commands - repeat CSF studies pending. Blood cultures negative, respiratory culture shows normal ramses for now - urine culture showing yeast - she is on IV vanc, IV cefepime and flagyl. Will add IV micafungin for yeast in the urine Dispo: pending improvement in mental status. Will eventually need comfort measures or trach/PEG etc
[2019-07-02] MEDS: Micafungin 100 MG in Sodium Chloride 0.9% 100 ML IVPB SCH (18:15)
[2019-07-02] MEDS: Acetaminophen 650 MG/20.3 ML UDCUP PER TUBE PRN ×2 (18:27→20:56)
[2019-07-03] MEDS: hydrALAZINE 20 MG/ML VIAL SLOW IVP PRN (01:20)
[2019-07-03] MEDS: HumaLOG 300 UNITS/3 ML VIAL SC PRN ×4 (01:22→17:38)
[2019-07-03] MEDS: niCARdipine 50 MG in Sodium Chloride 0.9% 250 ML 230 ML IVPB PRN ×3 (02:45→18:33)
[2019-07-03 04:04] LABS: #Basophils 0.1 thou/uL (0.0-0.2); #Eosinphils 0.2 thou/uL (0.0-0.7); #Lymphocytes 1.6 thou/uL (1.20-3.40); #Monocytes 1.2 thou/uL (0.11-0.59); #Neutrophils 10.1 thou/uL (1.40-6.50); %Basophils 0.5 % (0.0-1.0); %Eosinophils 1.2 % (0.0-10.0); %Lymphocytes 12.5 % (21.0-51.0); %Monocytes 9.1 % (0.0-10.0); %Neutrophils 76.7 % (42.0-75.0); Hemoglobin 11.2 g/dL (12.0-16.0); Mean Corpuscular HGB CONC 31.9 g/dL (32.0-36.0); Mean Corpuscular Hemoglobin 27.7 pg (27.0-31.0); Mean Corpuscular Volume 86.7 fL (78.0-98.0); Mean Platelet Volume 11.6 fL (7.4-10.4); Platelet Count 261 thou/uL (130-400); RBC Distribution Width 13.1 % (11.5-14.5); Red Blood Cell (RBC) Count 4.05 mill/uL (4.20-5.40); White Blood Cell (WBC) Count 13.1 thou/uL (4.8-10.8)
[2019-07-03 04:24] LABS: ALT (SGPT) 9 U/L (8-55); AST (SGOT) 13 U/L (5-34); Albumin 2.7 g/dL (3.5-5.0); Alkaline Phosphatase 44 U/L (40-110); Anion Gap 10 mmol/L (10-20); BUN (Urea Nitrogen) 20 mg/dL (7.0-18.7); Bilirubin, Total 0.3 mg/dL (0.2-1.2); Calc. Creatinine Clearance 87 mL/min (70-130); Carbon Dioxide 25 mmol/L (22-29); Chloride 118 mmol/L (98-107); Estimated GFR-MDRD 75; Globulin 3.2 g/dL (2.4-3.5); Glucose 303 mg/dL (70-105); Potassium 3.8 mmol/L (3.5-5.1); Protein, Total 5.9 g/dL (6.0-8.3); Sodium 149 mmol/L (136-145)
[2019-07-03] MEDS: Acetaminophen 650 MG/20.3 ML UDCUP PER TUBE PRN ×3 (05:00→20:07)
[2019-07-03] MEDS: Furosemide 40 MG/4 ML VIAL SLOW IVP SCH ×2 (05:01→13:26)
[2019-07-03] MEDS: Cefepime 2 GM in Sodium Chloride 0.9% 100 ML IVPB SCH ×2 (08:52→20:07)
[2019-07-03] MEDS: Carvedilol 6.25 MG TAB PO SCH ×2 (08:55→15:57)
[2019-07-03] MEDS: hydrALAZINE 25 MG TAB PO SCH ×3 (08:55→20:08)
[2019-07-03] MEDS ORDERED: Insulin Glargine 20 UNITS in Pre-Filled Syringe 1 EACH SC SCH (10:15)
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
--- NOTE | 2019-07-03 10:35 | PRG ---
DATE OF SERVICE: 07/03/2019 This is Pedro Luis Enrique PA-C dictating a report for Anam Barroso MD. Ms. Rutherford is postoperative day #8 having undergone left thalamic hemorrhage evacuation and placement of EVD. The patient remains with intermittent tachycardia, intermittent fevers, and intermittent hypertension. It is believed as all of her cultures have been negative. This is likely believed to be related to the diencephalic storming. The patient has her eyes open, though is not following commands. She has withdrawals in the bilateral lower extremities and in the right upper extremity, but there has been no movement of the left upper extremity. EVD has max output of 16 mL an hour with an average of about 12 and her ICPs have been about 5. I spoke with her friend, Joann, at bedside. Unfortunately, it appears as though that the patient will be left with profound neurologic deficit. We need to make a decision in the next few days regarding continuity of care including trach and PEG versus withdrawal of care. We are attempting still to reach the patient's next of kin, which would be her son, who lives in [place]. We will again try to attempt to contact him to determine the next appropriate step in care or whether it would be progression to trach and PEG or again withdrawal of care. updated of the patient's progress. At this time, we will keep the EVD open to drain at 0 cm of water at the level of the ear canal. Please call with any change in the patient's neurologic status. Job ID: [id number]
--- NOTE | 2019-07-03 10:56 | RAD ---
PORTABLE CHEST: Date: 07/03/2019 HISTORY: Mechanical ventilation. CCU follow-up. COMPARISON: 07/01/2019. FINDINGS/IMPRESSION: Lungs appear well aerated and remain clear. There may be mild left basilar atelectasis. ET tube and N G tube remain in place and appear adequately positioned. No acute finding or significant interval bertin nge. POS: [facility]
--- NOTE | 2019-07-03 15:38 | PDOC.HOSPP ---
- Subjective Encounter Date: 07/03/19 Encounter Time: 13:00 Subjective: The patient opens her eyes spontaneously. Still intubated. She is on nicardipine drip at 7 an hour. She was given lasix this morning. Chest X ray showed no acute finding. Currently ethics consult is pending to figure out health care proxy. Son had deferred to ex- who had deferred to a friend of hers. Friend per patient is thinking that the patient would not want to live like this and would not want to proceed with trach and PEG - Objective Vital Signs & Weight: Vital Signs (12 hours) Temp Pulse Resp BP Pulse Ox 07/03/19 15:00 99.3 F 07/03/19 14:00 32 H 07/03/19 13:34 90 07/03/19 13:00 99.7 F H 07/03/19 12:00 100.9 F H 18 07/03/19 10:52 82 07/03/19 10:00 17 07/03/19 08:55 89 117/65 07/03/19 08:08 89 07/03/19 08:00 99.3 F 21 H 99 07/03/19 06:00 99.3 F 22 H 07/03/19 05:00 99.8 F H 07/03/19 04:00 102.4 F H 21 H Weight Admit Weight 138 lb Weight 145 lb 1.027 oz Most Recent Monitor Data Heart Rate from ECG 94 NIBP 134/83 NIBP BP-Mean 100 Respiration from ECG 21 SpO2 99 I&O: 07/02/19 07/03/19 07/04/19 06:59 06:59 06:59 Intake Total 6023 4131.9 210 Output Total 3528 6016 2428 Balance 2495 -1884.1 -2218 Result Diagrams: 07/03/19 03:45 07/03/19 03:45 Additional Labs: Accuchecks 07/03/19 07/03/19 07/03/19 12:24 05:57 00:26 POC Glucose 301 H 312 H 290 H 07/02/19 18:22 POC Glucose 262 H Hospitalist ROS - Review of Systems ROS unobtainable: due to mental status Constitutional: reports: fever - Medication Medications: Active Medications Generic Name Dose Route Start Last Admin Trade Name Freq PRN Reason Stop Dose Admin Acetaminophen 650 mg 07/01/19 17:02 07/03/19 12:25 Tylenol Elixir PER TUBE 650 mg Q4H PRN Administration Headache/Fever or Pain Carvedilol 12.5 mg 06/29/19 17:00 07/03/19 08:55 Coreg PO 12.5 mg BID-WM MATTHIAS Administration Furosemide 40 mg 07/03/19 06:00 07/03/19 13:26 Lasix SLOW IVP 40 mg 0600,1400 MATTHIAS Administration Hydralazine HCl 10 mg 06/25/19 19:24 07/03/19 01:20 Apresoline SLOW IVP 10 mg Q15MIN PRN Administration Sbp Greater Than 150 Hydralazine HCl 50 mg 06/29/19 15:00 07/03/19 08:55 Apresoline PO 50 mg TID MATTHIAS Administration Levetiracetam 500 mg/ Device 100 mls @ 200 mls/hr 06/25/19 21:00 07/03/19 10: 10 IVPB 100 mls BID MATTHIAS Administration Nicardipine HCl 50 mg/ Sodium 250 mls @ 0 mls/hr 06/26/19 00:45 07/03/19 10: 10 Chloride IVPB 250 mls INF PRN Administration TO MAINTAIN SBP < 150 Protocol As Directed Cefepime HCl 2 gm/ Sodium 100 mls @ 200 mls/hr 06/29/19 21:00 07/03/19 08:52 Chloride IVPB 100 mls Q12HR MATTHIAS Administration Micafungin Sodium 100 mg/ 100 mls @ 100 mls/hr 07/02/19 18:00 07/02/19 18:15 Sodium Chloride IVPB 100 mls 1800 MATTHIAS Administration Insulin Human Lispro 0 units 06/26/19 12:14 07/03/19 12:25 Humalog SC 8 unit .MODERATE SLIDING SC PRN Administration Moderate Correctional Scale Labetalol HCl 10 mg 06/25/19 19:08 06/30/19 07:16 Normodyne SLOW IVP 10 mg Q10MIN PRN Administration SBP > 150 or DBP > 90 Sodium Chloride 10 ml 06/25/19 19:08 06/28/19 02:32 Flush - Normal Saline IVF 10 ml PRN PRN Administration Saline Flush - Exam General Appearance: NAD General - other findings: eyes spontaneously open, intubated ENT: normocephalic atraumatic, no oropharyngeal lesions Neck: supple, no JVD Heart: RRR, no murmur, no gallops, no rubs Respiratory: CTAB, no wheezes, no rales, no ronchi Gastrointestinal: soft, non-tender, non-distended, normal bowel sounds Extremities: no cyanosis, no clubbing, no edema Extremities - other findings: edema diffuse Skin: normal turgor, no lesions, no rashes Neurological - other findings: does not really respond to noxious stimulus Hosp A/P - Plan CT brain /: large left base and tiny hemorrhage with extension into ventricular system Dopplers: no DVT Chest X ray: lungs are hypoinflated This is 49 year old female who presented with hypertensive emergency with intra -cranial hemorrhage #Hypertensive emergency #Intracranial hemorrhage #Acute hypoxic respiratory failure s/p intubation #Leukocytosis - improving #Anemia #Hypernatremia - CT head showed large left basis and tiny hemorrhage into ventricular system. She is s/p bleed evacuation and EVD placement POD8. She is still intubated. Per neurosurgery there is likely no meaningful recover - goals of care discussion pending ethics consult -continue nicardipine drip and hydralazine 50 mg tid and coreg . Started IV lasix bid for edema and hypertension - repeat CSF studies pending. Blood cultures negative, respiratory culture shows normal ramses for now - urine culture showing yeast. Continue IV vanc, cefepime, flagyl and IV micafungin Dispo: pending ethics consult for goals of care and decision regarding who HCP is
[2019-07-03] MEDS: Micafungin 100 MG in Sodium Chloride 0.9% 100 ML IVPB SCH (17:38)
[2019-07-04] MEDS: HumaLOG 300 UNITS/3 ML VIAL SC PRN ×4 (00:22→17:51)
[2019-07-04] MEDS: niCARdipine 50 MG in Sodium Chloride 0.9% 250 ML 230 ML IVPB PRN ×3 (00:40→10:14)
[2019-07-04 05:30] LABS: #Basophils 0.1 thou/uL (0.0-0.2); #Eosinphils 0.2 thou/uL (0.0-0.7); #Lymphocytes 1.9 thou/uL (1.20-3.40); #Monocytes 1.3 thou/uL (0.11-0.59); #Neutrophils 11.1 thou/uL (1.40-6.50); %Basophils 0.5 % (0.0-1.0); %Eosinophils 1.7 % (0.0-10.0); %Lymphocytes 12.8 % (21.0-51.0); %Monocytes 8.7 % (0.0-10.0); %Neutrophils 76.3 % (42.0-75.0); Hemoglobin 11.4 g/dL (12.0-16.0); Mean Corpuscular Hemoglobin 28.2 pg (27.0-31.0); Mean Corpuscular Volume 88.3 fL (78.0-98.0); Mean Platelet Volume 12.2 fL (7.4-10.4); Platelet Count 289 thou/uL (130-400); RBC Distribution Width 13.3 % (11.5-14.5); Red Blood Cell (RBC) Count 4.05 mill/uL (4.20-5.40); White Blood Cell (WBC) Count 14.5 thou/uL (4.8-10.8)
[2019-07-04 05:39] LABS: ALT (SGPT) 10 U/L (8-55); AST (SGOT) 16 U/L (5-34); Albumin 2.8 g/dL (3.5-5.0); Alkaline Phosphatase 44 U/L (40-110); Anion Gap 8 mmol/L (10-20); BUN (Urea Nitrogen) 22 mg/dL (7.0-18.7); Bilirubin, Total 0.4 mg/dL (0.2-1.2); Calc. Creatinine Clearance 86 mL/min (70-130); Calcium 8.2 mg/dL (7.8-10.44); Carbon Dioxide 28 mmol/L (22-29); Chloride 116 mmol/L (98-107); Estimated GFR-MDRD 77; Globulin 3.3 g/dL (2.4-3.5); Glucose 262 mg/dL (70-105); Potassium 3.2 mmol/L (3.5-5.1); Protein, Total 6.1 g/dL (6.0-8.3); Sodium 149 mmol/L (136-145)
[2019-07-04] MEDS: Furosemide 40 MG/4 ML VIAL SLOW IVP SCH (06:19)
[2019-07-04] MEDS ORDERED: Rocuronium Bromide 10 MG/ML (10ML VIAL) IVP SCH (07:45)
[2019-07-04] MEDS ORDERED: Vecuronium 10 MG VIAL ONE (07:46)
--- NOTE | 2019-07-04 08:53 | PRG ---
DATE OF SERVICE: 07/04/2019 Ms. Rutherford is postoperative day #9 after having undergone left thalamic hemorrhagic evacuation and placement of EVD. The patient continues to demonstrate signs of diencephalic storming with intermittent tachycardia, hypertension, and fevers. The patient remained in stable condition when evaluated this morning. She has her eyes open but does not follow commands, so unable to inspect extraocular movements. Pupils are equal, round, and sluggishly reactive. She withdrawals to pain in the lower extremities bilaterally, as well as right upper extremity. Minimal withdrawal in the left upper extremity. EVD drain output maximum was 20 mL/hr at 1700 yesterday, 17 mL/hr at 0400 this morning. On average, the drain output has been approximately 12 mL/h. ICPs have been averaging approximately 5 to 6. We will keep the EVD open to drain at 0 cm of water at the level of the ear canal. There is a complicated social component surrounding this case. The Ethics Committee has been consulted and we are pending their input. We will reassess patient tomorrow. Call for any changes in neurological status or any other concerns. Job ID: [id number] MTDD
[2019-07-04] MEDS ORDERED: Insulin Glargine 15 UNITS in Pre-Filled Syringe 1 EACH SC SCH (09:00)
[2019-07-04] MEDS ORDERED: Carvedilol 6.25 MG TAB PO SCH (09:00)
--- NOTE | 2019-07-04 09:02 | PRG ---
DATE OF SERVICE: 07/04/2019 SERVICE: Pulmonary medicine. INTERVAL HISTORY: The patient is doing fine from respiratory standpoint. Breathing comfortably. No complaints of chest discomfort, nausea, vomiting, fevers, or chills. Otherwise, there has been no interval change to her condition. Overnight, she self-extubated. She was at difficult airway, getting the tube reestablished. Ultimately, it was placed. She did not have any significant hemodynamic instability during this process. PHYSICAL EXAMINATION: VITAL SIGNS: T-max 101.0. Pulse 126, blood pressure 127/68, respirations 21, saturation 98%, currently on 60% FiO2 and a PEEP of 5. GENERAL: The patient is intubated. She is on no sedation. HEENT: Normocephalic. Ventriculostomy drain is in place. Sclerae white. Conjunctivae pink. Oral mucosa is moist without lesions. LUNGS: Decent air entry. No prolonged expiratory phase or wheezing is appreciated. HEART: Normal rate. Regular. ABDOMEN: Soft, nontender, and nondistended. Bowel sounds are positive. MUSCULOSKELETAL: No cyanosis or clubbing. No pitting in the bilateral lower extremities. LABORATORY DATA: WBC 14.5, hemoglobin 11.4, and platelets 289,000. Sodium 149 and roughly stable, potassium 3.2. Basic metabolic profile is otherwise unremarkable. Liver function studies are normal. Urinalysis is unremarkable. Urine drug screen is negative. E species growing in the urine. Blood cultures x2 are negative. Body fluid culture is unremarkable. ASSESSMENT: 1. Acute respiratory failure secondary to inability to protect airway. 2. Intraparenchymal hemorrhage of the left thalamus with intraventricular extension, status post craniotomy with external ventricular drain placed, postop day 9. 3. Hypertensive emergency, stable. 4. Sepsis. DISCUSSION AND PLAN: The potassium will be replaced today. We will continue our free water and I will back off on our Lasix to once daily. I will escalate her blood pressure medications. We are talking to the patient's family about transition over to comfort care only. I have verbal confirmation through the friends that the son would like to do that, but we are yet to hear this from the son. Certainly, the father would like to transition over to comfort care. The son and the father represent her next of kin. CRITICAL CARE TIME: 30 minutes. Job ID: [id number]
--- NOTE | 2019-07-04 09:23 | OP ---
DATE OF PROCEDURE: 07/04/2019 PROCEDURE: Endotracheal intubation. PREOPERATIVE DIAGNOSIS: The patient had an accidental extubation while being turned to be cleaned. SUMMARY: I was called to see this patient emergently as she lost her airway. The patient had previously been intubated for some type of head situation, has a ventriculostomy in. Initially, tried to intubate her orally, but she was clamped down. We bag-mask ventilator. She was given 50 mg of rocuronium, attempted endotracheally to intubate her with a GlideScope, but could not see cords, did pass endotracheal tube, started the ventilator, but she started desatting, therefore, the endotracheal tube was pulled out. Proceeded tried to fiberoptically intubate her, but could not see any evidence of cords. I then tried to GlideScope again and blindly intubated her into an anterior space, that attempt was successful and she had yellow end-tidal CO2 and she was placed on mechanical ventilation. Job ID: [id number]
[2019-07-04] MEDS: hydrALAZINE 25 MG TAB PO SCH ×3 (10:13→23:59)
[2019-07-04] MEDS: Cefepime 2 GM in Sodium Chloride 0.9% 100 ML IVPB SCH ×2 (10:14→21:05)
[2019-07-04] MEDS: Insulin Glargine 25 UNITS in Pre-Filled Syringe 1 EACH SC SCH (10:15)
[2019-07-04] MEDS: Carvedilol 6.25 MG TAB PO SCH ×2 (12:24→17:47)
--- NOTE | 2019-07-04 13:25 | PDOC.HOSPP ---
- Subjective Encounter Date: 07/04/19 Encounter Time: 13:23 Subjective: THe patient is opening her eyes spontaneously, still intubated. She seems to be tracking some, but cannot respond to questons Still on nicardipine drip but weaned down. Her lasix was given Ethics consult pending. Per nursing staff, she responded to deep sternal rub, but not light stimulus - Objective Vital Signs & Weight: Vital Signs (12 hours) Temp Pulse Resp BP Pulse Ox 07/04/19 13:17 76 07/04/19 12:24 131/76 07/04/19 12:00 19 07/04/19 11:00 98.6 F 07/04/19 10:59 87 07/04/19 10:13 85 07/04/19 10:12 131/76 07/04/19 10:00 21 H 07/04/19 08:20 126 H 07/04/19 08:00 20 98 07/04/19 07:00 100.7 F H 07/04/19 06:00 17 07/04/19 04:00 21 H 07/04/19 03:00 99.2 F 07/04/19 02:00 21 H 07/04/19 01:59 87 Weight Admit Weight 138 lb Weight 141 lb 8.588 oz Most Recent Monitor Data Heart Rate from ECG 74 NIBP 123/78 NIBP BP-Mean 93 Respiration from ECG 19 SpO2 98 I&O: 07/03/19 07/04/19 07/05/19 06:59 06:59 06:59 Intake Total 4131.9 3765 125 Output Total 6016 4613 [facility] Balance -1884.1 -848 -1878 Result Diagrams: 07/04/19 03:40 07/04/19 03:40 Additional Labs: Accuchecks 07/04/19 07/04/19 07/04/19 12:30 06:18 00:11 POC Glucose 320 H 262 H 233 H 07/03/19 17:41 POC Glucose 273 H Hospitalist ROS - Review of Systems Constitutional: denies: fever, chills Respiratory: denies: dry, pleuritic pain - Medication Medications: Active Medications Generic Name Dose Route Start Last Admin Trade Name Freq PRN Reason Stop Dose Admin Acetaminophen 650 mg 07/01/19 17:02 07/03/19 20:07 Tylenol Elixir PER TUBE 650 mg Q4H PRN Administration Headache/Fever or Pain Hydralazine HCl 10 mg 06/25/19 19:24 07/03/19 01:20 Apresoline SLOW IVP 10 mg Q15MIN PRN Administration Sbp Greater Than 150 Hydralazine HCl 75 mg 07/04/19 12:00 07/04/19 10:13 Apresoline PO 75 mg Q6HR MATTHIAS Administration Levetiracetam 500 mg/ Device 100 mls @ 200 mls/hr 06/25/19 21:00 07/04/19 10: 12 IVPB 100 mls BID MATTHIAS Administration Nicardipine HCl 50 mg/ Sodium 250 mls @ 0 mls/hr 06/26/19 00:45 07/04/19 10: 14 Chloride IVPB 250 mls INF PRN Administration TO MAINTAIN SBP < 150 Protocol As Directed Cefepime HCl 2 gm/ Sodium 100 mls @ 200 mls/hr 06/29/19 21:00 07/04/19 10:14 Chloride IVPB 100 mls Q12HR MATTHIAS Administration Micafungin Sodium 100 mg/ 100 mls @ 100 mls/hr 07/02/19 18:00 07/03/19 17:38 Sodium Chloride IVPB 100 mls 1800 MATTHIAS Administration Insulin Glargine 25 units/ 0.25 mls @ 1 mls/hr 07/04/19 09:00 07/04/19 10:15 Miscellaneous Medication SC 0.25 mls QAM MATTHIAS Administration Insulin Human Lispro 0 units 06/26/19 12:14 07/04/19 12:28 Humalog SC 8 unit .MODERATE SLIDING SC PRN Administration Moderate Correctional Scale Labetalol HCl 10 mg 06/25/19 19:08 06/30/19 07:16 Normodyne SLOW IVP 10 mg Q10MIN PRN Administration SBP > 150 or DBP > 90 Potassium Chloride 40 meq 07/02/19 09:46 07/04/19 06:19 Klor-Con PER TUBE 40 meq ASDIR PRN Administration FOR SERUM K+ 2.5-3.5 Sodium Chloride 10 ml 06/25/19 19:08 06/28/19 02:32 Flush - Normal Saline IVF 10 ml PRN PRN Administration Saline Flush - Exam General Appearance: NAD General - other findings: intubated Eye: PERRL, anicteric sclera ENT: normocephalic atraumatic, no oropharyngeal lesions Neck: supple, symmetric, no JVD, no thyromegaly Heart: RRR, no murmur, no gallops, no rubs Respiratory: CTAB, no wheezes, no rales, no ronchi Gastrointestinal: soft, non-tender, non-distended, normal bowel sounds Extremities: no cyanosis, no clubbing, 2+ LE edema (in upper and lower extremities. Lower extremity edema improved) Skin: normal turgor, no lesions, no rashes Neurological: cranial nerve grossly intact, normal sensation to touch Neurological - other findings: patient not responsive to superficial stimulus. Only to deep stimulus Musculoskeletal: normal tone, normal strength, no muscle wasting Psychiatric: normal affect, normal behavior, A&O x 3, oriented to person Hosp A/P - Plan CT brain /: large left base and tiny hemorrhage with extension into ventricular system Dopplers: no DVT Chest X ray: lungs are hypoinflated This is 49 year old female who presented with hypertensive emergency with intra -cranial hemorrhage #Hypertensive emergency #Intracranial hemorrhage #Acute hypoxic respiratory failure s/p intubation #Leukocytosis - improving #Anemia #Hypernatremia - CT head showed large left basis and tiny hemorrhage into ventricular system. She is s/p bleed evacuation and EVD placement POD8. She is still intubated. Per neurosurgery there is likely no meaningful recover - goals of care discussion pending ethics consult - on nicardipine drip has been weaned down - on hydralazine 50 mg tid, IV lasix 20 mg and coreg - rare normal respiratory ramses on sputum culture, repeat CSF studies pending, blood cultures negative - continue IV vanc, cefepime, flagyl day 5 and IV micafungin day 2 Dispo: pending ethics consult for goals of care and decision regarding who HCP is
--- NOTE | 2019-07-04 17:34 | PDOC.PALPN ---
Palliative Progress Note - Subjective Mechanical ventilation, no purposeful movement at time of exam, opens eyes intermittently. - Objective Vital Signs: Vital Signs - Most Recent Temp Pulse Resp BP Pulse Ox 99.2 F 79 15 131/76 98 07/04/19 15:00 07/04/19 15:07 07/04/19 14:00 07/04/19 12:24 07/04/19 08:00 - Physical Exam Constitutional: ill appearing HEENT: moist MMs, sclera anicteric Respiratory: no wheezing, unlabored breathing Cardiovascular: RRR Gastrointestinal: soft, non-tender, positive bowel sounds Genitourinary: loza catheter Musculoskeletal: pulses present, edema present Deviation from normal: no response to light stimuli Skin: cap refill <2 seconds, no lesions, no rash - Assessment (1) Palliative care encounter Code(s): Z51.5 - ENCOUNTER FOR PALLIATIVE CARE Current Visit: Yes Status: Acute (2) Acute encephalopathy Code(s): G93.40 - ENCEPHALOPATHY, UNSPECIFIED Current Visit: Yes Status: Acute (3) Acute respiratory failure with hypoxia Code(s): J96.01 - ACUTE RESPIRATORY FAILURE WITH HYPOXIA Current Visit: Yes Status: Acute (4) Diabetes type 2, uncontrolled Code(s): E11.65 - TYPE 2 DIABETES MELLITUS WITH HYPERGLYCEMIA Current Visit: Yes Status: Acute (5) Hypertensive intracerebral hemorrhage Code(s): I61.9 - NONTRAUMATIC INTRACEREBRAL HEMORRHAGE, UNSPECIFIED Current Visit: Yes Status: Acute (6) Noncompliance with medication regimen Code(s): Z91.14 - PATIENT'S OTHER NONCOMPLIANCE WITH MEDICATION REGIMEN Current Visit: Yes Status: Chronic - Plan Plan:Phone call to patient son, teaching in relation to current status and poor possibility for rehab potential. Son not able to make decisions at this time in relation to resuscitation status or identify goal of care for his mother of compassionate extubation verses trach/peg and LTAC. *Communicated with Dr Garrison/Neurosurgery [facility] [place], Fariba Wynne [70] minutes spent on this encounter with >50% of the time in counseling and coordination of care. - ROS Non Response: due to endotracheal tube, due to mental status
[2019-07-04] MEDS: Micafungin 100 MG in Sodium Chloride 0.9% 100 ML IVPB SCH (17:46)
[2019-07-05] MEDS: HumaLOG 300 UNITS/3 ML VIAL SC PRN ×3 (00:03→18:27)
[2019-07-05 03:43] LABS: Hemoglobin 11.5 g/dL (12.0-16.0); Mean Corpuscular HGB CONC 32.2 g/dL (32.0-36.0); Mean Corpuscular Hemoglobin 28.3 pg (27.0-31.0); Mean Corpuscular Volume 87.7 fL (78.0-98.0); Mean Platelet Volume 12.2 fL (7.4-10.4); Platelet Count 284 thou/uL (130-400); RBC Distribution Width 13.6 % (11.5-14.5); Red Blood Cell (RBC) Count 4.08 mill/uL (4.20-5.40); White Blood Cell (WBC) Count 16.6 thou/uL (4.8-10.8)
[2019-07-05 04:05] LABS: Anion Gap 14 mmol/L (10-20); BUN (Urea Nitrogen) 28 mg/dL (7.0-18.7); Calc. Creatinine Clearance 87 mL/min (70-130); Calcium 8.2 mg/dL (7.8-10.44); Carbon Dioxide 22 mmol/L (22-29); Chloride 118 mmol/L (98-107); Estimated GFR-MDRD 78; Glucose 243 mg/dL (70-105); Magnesium 2.2 mg/dL (1.6-2.6); Potassium 3.8 mmol/L (3.5-5.1); Sodium 150 mmol/L (136-145)
[2019-07-05] MEDS: niCARdipine 50 MG in Sodium Chloride 0.9% 250 ML 230 ML IVPB PRN ×2 (04:21→12:49)
[2019-07-05] MEDS ORDERED: Furosemide 40 MG/4 ML VIAL SLOW IVP SCH (06:00)
[2019-07-05] MEDS: hydrALAZINE 25 MG TAB PO SCH ×4 (06:16→23:06)
[2019-07-05 06:54] LABS: Hemoglobin 11.5 g/dL (12.0-16.0); Mean Corpuscular Hemoglobin 28.1 pg (27.0-31.0); Mean Corpuscular Volume 87.7 fL (78.0-98.0); Mean Platelet Volume 12.1 fL (7.4-10.4); Platelet Count 276 thou/uL (130-400); RBC Distribution Width 13.4 % (11.5-14.5); Red Blood Cell (RBC) Count 4.09 mill/uL (4.20-5.40)
[2019-07-05] MEDS: Carvedilol 6.25 MG TAB PO SCH ×2 (09:22→17:17)
[2019-07-05] MEDS: Cefepime 2 GM in Sodium Chloride 0.9% 100 ML IVPB SCH (09:23)
[2019-07-05] MEDS: Insulin Glargine 25 UNITS in Pre-Filled Syringe 1 EACH SC SCH (09:24)
--- NOTE | 2019-07-05 13:01 | PRG ---
DATE OF SERVICE: 07/05/2019 This is Pedro Luis Enrique PA-C dictating a report for Anam Barroso MD. Ms. Rutherford is now postoperative day 10, having sustained devastating left thalamic hypertensive bleed. The patient has made no meaningful neurologic recovery. She intermittently opens her eyes. She does not follow commands. She withdraws briskly in the bilateral lower extremities. She has decorticate posturing in the right upper extremity and there has been no movement in the left upper extremity for the past few days. Her EVD is outputting range of 11 to 16 mL/h and her ICPs have been less than 10. She is afebrile with some improvement in her heart rate and blood pressure. At this time, her ethics committee is helping us decide what the next best course and treatment is for the patient whether it would be withdrawal of care, whether it would be transition to comfort care measures versus trach and PEG placement. I have been in close contact with palliative care and they will likely be reaching out to the patient's biologic father today to determine next step in treatment. We will await their decision. Otherwise, no change from neurosurgeon. We will keep the EVD open to drain at the level of the ear canal 0 cm of water and record output and ICPs hourly. Please call with any change in the patient's neurologic status. Job ID: [id number]
--- NOTE | 2019-07-05 14:36 | PDOC.PALPN ---
Palliative Progress Note - Subjective Remains intubated day 10 status post hypertensive bleed that has left patietn with no believed meaningful recovery. No purposeful movement - Objective Vital Signs: Vital Signs - Most Recent Temp Pulse Resp BP Pulse Ox 98.8 F 70 17 123/68 98 07/05/19 11:00 07/05/19 12:15 07/05/19 14:00 07/05/19 12:15 07/05/19 08:00 - Physical Exam Constitutional: encephalitic, ill appearing HEENT: moist MMs, sclera anicteric Deviation from normal: Mechanical ventialtion Cardiovascular: RRR Gastrointestinal: soft, non-tender, positive bowel sounds Genitourinary: loza catheter Musculoskeletal: edema present, diffuse muscle atrophy Deviation from normal: focal deficits - Assessment (1) Palliative care encounter Code(s): Z51.5 - ENCOUNTER FOR PALLIATIVE CARE Current Visit: Yes Status: Acute (2) Acute encephalopathy Code(s): G93.40 - ENCEPHALOPATHY, UNSPECIFIED Current Visit: Yes Status: Acute (3) Acute respiratory failure with hypoxia Code(s): J96.01 - ACUTE RESPIRATORY FAILURE WITH HYPOXIA Current Visit: Yes Status: Acute (4) Diabetes type 2, uncontrolled Code(s): E11.65 - TYPE 2 DIABETES MELLITUS WITH HYPERGLYCEMIA Current Visit: Yes Status: Acute (5) Hypertensive intracerebral hemorrhage Code(s): I61.9 - NONTRAUMATIC INTRACEREBRAL HEMORRHAGE, UNSPECIFIED Current Visit: Yes Status: Acute (6) Noncompliance with medication regimen Code(s): Z91.14 - PATIENT'S OTHER NONCOMPLIANCE WITH MEDICATION REGIMEN Current Visit: Yes Status: Chronic - Plan Plan: Currently with aggressive measures. Spoke with son via video conference call this morning. He has decided to transition his mother to [facility] and states he will arrive tomorrow and withrdraw care. Reviewed at length again his mothers lack of ability to have meaningful recovery and would require a Trach, PEG, and LTAC facility. She was known to serve in the , work as a healthcare aid , and live an active life. Friends and son state that she would not desire to live in this state. [facility] paperwork complete, order entered. Hopeful for sons arrival 07/06/2019. Should (Patient son) not arrive or appear to lack ability to make a decision we will reach out to the patients biological father in line with [place] hierarchy. Dr Arreguin, Dr Garrison, Dr Barroso, Silva Enrique, Dr Villalobos and Irene Wynne aware. [60] minutes spent on this encounter with >50% of the time in counseling and coordination of care. - ROS Non Response: due to endotracheal tube, due to mental status
--- NOTE | 2019-07-05 15:09 | PDOC.HOSPP ---
- Subjective Encounter Date: 07/05/19 Encounter Time: 13:00 Subjective: The patient is still not responsive. They were able to get a hold of the son who is planning to withdraw care tomorrow. Nicardipine is down to 5. Patient given lasix, minimal urin eoutput. - Objective Vital Signs & Weight: Vital Signs (12 hours) Temp Pulse Resp BP Pulse Ox 07/05/19 15:00 99.1 F 07/05/19 14:00 17 07/05/19 12:15 70 123/68 07/05/19 12:00 13 07/05/19 11:00 98.8 F 07/05/19 10:47 73 07/05/19 10:00 16 07/05/19 09:22 136/76 07/05/19 08:00 19 98 07/05/19 07:00 99.0 F 07/05/19 06:53 77 07/05/19 06:16 69 146/81 H 07/05/19 06:00 15 07/05/19 04:57 69 07/05/19 04:00 99.6 F 17 Weight Admit Weight 138 lb Weight 139 lb 15.896 oz Most Recent Monitor Data Heart Rate from ECG 72 NIBP 133/78 NIBP BP-Mean 96 Respiration from ECG 18 SpO2 100 I&O: 07/04/19 07/05/19 07/06/19 06:59 06:59 06:59 Intake Total 3765 3371 Output Total 4613 4593 2336 [facility] -848 -1222 -2336 Result Diagrams: 07/05/19 06:43 07/05/19 03:14 Additional Labs: Accuchecks 07/05/19 07/05/19 07/05/19 12:57 06:18 00:06 POC Glucose 316 H 247 H 244 H 07/04/19 17:54 POC Glucose 240 H Hospitalist ROS - Review of Systems Constitutional: denies: fever, chills Respiratory: denies: cough, dry - Medication Medications: Active Medications Generic Name Dose Route Start Last Admin Trade Name Freq PRN Reason Stop Dose Admin Acetaminophen 650 mg 07/01/19 17:02 07/03/19 20:07 Tylenol Elixir PER TUBE 650 mg Q4H PRN Administration Headache/Fever or Pain Carvedilol 25 mg 07/04/19 17:00 07/05/19 09:22 Coreg PO 25 mg BID-WM MATTHIAS Administration Furosemide 20 mg 07/05/19 06:00 07/05/19 06:16 Lasix SLOW IVP 20 mg 0600 MATTHIAS Administration Hydralazine HCl 10 mg 06/25/19 19:24 07/03/19 01:20 Apresoline SLOW IVP 10 mg Q15MIN PRN Administration Sbp Greater Than 150 Hydralazine HCl 75 mg 07/04/19 12:00 07/05/19 12:15 Apresoline PO 75 mg Q6HR MATTHIAS Administration Levetiracetam 500 mg/ Device 100 mls @ 200 mls/hr 06/25/19 21:00 07/05/19 09: 24 IVPB 100 mls BID MATTHIAS Administration Nicardipine HCl 50 mg/ Sodium 250 mls @ 0 mls/hr 06/26/19 00:45 07/05/19 12: 49 Chloride IVPB 250 mls INF PRN Administration TO MAINTAIN SBP < 150 Protocol As Directed Cefepime HCl 2 gm/ Sodium 100 mls @ 200 mls/hr 06/29/19 21:00 07/05/19 09:23 Chloride IVPB 100 mls Q12HR MATTHIAS Administration Micafungin Sodium 100 mg/ 100 mls @ 100 mls/hr 07/02/19 18:00 07/04/19 17:46 Sodium Chloride IVPB 100 mls 1800 MATTHIAS Administration Insulin Glargine 25 units/ 0.25 mls @ 1 mls/hr 07/04/19 09:00 07/05/19 09:24 Miscellaneous Medication SC 0.25 mls QAM MATTHIAS Administration Insulin Human Lispro 0 units 06/26/19 12:14 07/05/19 06:16 Humalog SC 4 unit .MODERATE SLIDING SC PRN Administration Moderate Correctional Scale Labetalol HCl 10 mg 06/25/19 19:08 06/30/19 07:16 Normodyne SLOW IVP 10 mg Q10MIN PRN Administration SBP > 150 or DBP > 90 Potassium Chloride 40 meq 07/02/19 09:46 07/04/19 06:19 Klor-Con PER TUBE 40 meq ASDIR PRN Administration FOR SERUM K+ 2.5-3.5 Sodium Chloride 10 ml 06/25/19 19:08 01/03/20 02:32 Flush - Normal Saline IVF 10 ml PRN PRN Administration Saline Flush - Exam General Appearance: NAD, ill appearing General - other findings: intubated Eye: PERRL, anicteric sclera ENT: normocephalic atraumatic, no oropharyngeal lesions Neck: supple, symmetric, no JVD, no thyromegaly Heart: RRR, no murmur, no gallops, no rubs Respiratory: CTAB, no wheezes, no rales, no ronchi Respiratory - other findings: intubated Gastrointestinal: soft, non-tender, non-distended Extremities: no cyanosis, no clubbing, no edema Skin: normal turgor, no lesions, no rashes Neurological - other findings: Responds only to deep noxious stimuli Musculoskeletal: normal tone, normal strength, no muscle wasting Hosp A/P - Plan CT brain 1/2: large left base and tiny hemorrhage with extension into ventricular system Dopplers: no DVT Chest X ray: lungs are hypoinflated This is 49 year old female who presented with hypertensive emergency with intra -cranial hemorrhage #Hypertensive emergency #Intracranial hemorrhage #Acute hypoxic respiratory failure s/p intubation #Leukocytosis - improving #Anemia #Hypernatremia - CT head showed large left basis and tiny hemorrhage into ventricular system. She is s/p bleed evacuation and EVD placement POD9. She is still intubated. Per neurosurgery there is likely no meaningful recovery. Family is planning on terminal extubation tomorrow - she is candidate for organ donation if family wants this - nicardipine drip is being weaned down. Continue hydralazine, IV lasix, coreg - CSF cultures are negative, blood cultures are negative - continue IV vancomycin, cefepime, flagyl day 5 - IV micafungin day 3 for yeast in urine - hypernatremia being treated with IV lasix, cannot give hypotonic fluid due to brain hemorrhage and hypertension Dispo: terminal extubation to [facility]
--- NOTE | 2019-07-05 16:37 | PRG ---
DATE OF SERVICE: 07/05/2019 SERVICE: Pulmonary Medicine. INTERVAL HISTORY: The patient is doing really well from respiratory standpoint. Breathing comfortably. She cannot provide any additional elements of the history. She had some low-grade temperatures. Otherwise, there were no overnight events. We did get in touch with the patient's son. At this point, he and his father are likely going to be transitioning over to comfort care only. That being said, the Ethics Committee has convened and decided that the surrogate decision maker should truthfully be the patient's father as there is some question of whether or not the son understand the situation. PHYSICAL EXAMINATION: VITAL SIGNS: Afebrile, pulse 72, blood pressure 133/78, respirations 18, and saturation 100%, currently on 30% FiO2 and a PEEP of 5. GENERAL: The patient is intubated. She is on no sedation. HEENT: Normocephalic and atraumatic. Sclerae white. Conjunctivae pink. Oral mucosa is moist without lesions. LUNGS: Decent air entry with no prolonged expiratory phase or wheezing present. HEART: Normal rate regular. ABDOMEN: Soft, nontender, nondistended bowel sounds are positive. MUSCULOSKELETAL: No cyanosis or clubbing. The pitting edema is resolved. NEUROLOGIC: Grossly nonfocal. LABORATORY DATA: WBC 16.0 and downtrending, hemoglobin 11.5. Sodium 150, and gently up-trending. Chloride 118, BUN 28, creatinine 0.78. Magnesium and phosphorous fall within normal limits. Culture results remain negative to date. ASSESSMENT: 1. Acute respiratory failure secondary to inability to protect airway. 2. Intraparenchymal hemorrhage of the left thalamus with intraventricular extension, status post craniotomy with external ventricular drain placement, postop day 10. 3. Hypertensive emergency, resolved. 4. Sepsis. DISCUSSION AND PLAN: We will likely be transitioning over to comfort measures only over the next 12-24 hours. Pulmonary/Critical Care will continue to follow so long as the patient remains inhouse. Lasix will be interrupted. Other supportive measures will be continued for the time being. Job ID: [id number]
[2019-07-05] MEDS: Micafungin 100 MG in Sodium Chloride 0.9% 100 ML IVPB SCH (17:16)
[2019-07-06] MEDS: HumaLOG 300 UNITS/3 ML VIAL SC PRN ×5 (00:46→23:31)
[2019-07-06 03:49] LABS: ALT (SGPT) 31 U/L (8-55); AST (SGOT) 36 U/L (5-34); Albumin 2.8 g/dL (3.5-5.0); Alkaline Phosphatase 46 U/L (40-110); Anion Gap 14 mmol/L (10-20); BUN (Urea Nitrogen) 26 mg/dL (7.0-18.7); Bilirubin, Direct 0.1 mg/dL (0.1-0.3); Bilirubin, Total 0.4 mg/dL (0.2-1.2); Calc. Creatinine Clearance 90 mL/min (70-130); Carbon Dioxide 21 mmol/L (22-29); Chloride 118 mmol/L (98-107); Estimated GFR-MDRD 82; Glucose 195 mg/dL (70-105); Potassium 3.6 mmol/L (3.5-5.1); Protein, Total 5.9 g/dL (6.0-8.3); Sodium 149 mmol/L (136-145)
[2019-07-06 04:08] LABS: HIV (1/2) Antibody/Antigen Non-Reactive (NonReactive)
[2019-07-06] MEDS: hydrALAZINE 25 MG TAB PO SCH ×4 (05:54→23:13)
[2019-07-06 06:45] LABS: Actual Bicarbonate (HCO3a) 21.8 mEq/L (22-28); Base Excess (BEa) 0.9 mEq/L (-2.0 to +3.0); Calcium, Ionized 1.16 mmol/L (1.12-1.30); Carboxyhemoglobin (COHb) 0.9 gm% (0.0-3.0); Hemoglobin (Hb) 13.9 g/dL (12.0-16.0); O2 Tension (PaO2) 94.3 mmHg (80.0-100.0); Potassium - ABG Lab 3.26 mmol/L (3.70-5.30)
[2019-07-06 06:57] LABS: CO2 Tension 25.4 mmHg (35.0-45.0); Puncture Site RRAD; pH, Arterial 7.55 (7.35-7.45)
[2019-07-06] MEDS: Carvedilol 6.25 MG TAB PO SCH ×2 (08:55→17:40)
[2019-07-06] MEDS: Insulin Glargine 25 UNITS in Pre-Filled Syringe 1 EACH SC SCH (08:55)
--- NOTE | 2019-07-06 09:15 | PRG ---
DATE OF SERVICE: 07/06/2019 SUBJECTIVE: The patient is postoperative day #11, having suffered a large left thalamic hypertensive hemorrhage. Her EVD remains open at 0 cm of water. This had about approximately 5 mL out an hour of serosanguineous fluid. Her ICP remained below 10. She has had no meaningful change in her exam. The ethics committee has been convening to help decide what is the next best course of treatment for the patient. There may be a chance that her son could arrive today for consideration of withdrawal of care at that time. OBJECTIVE: On exam this morning, the patient does open her eyes intermittently. She does withdraw briskly over the lower extremities. Pupils are equal and sluggish. She is not withdrawal of the upper extremities. PLAN: We will continue to defer to the ethics committee or appropriate family regarding ongoing level of care. We will leave the EVD open at its current rate. Job ID: [id number]
--- NOTE | 2019-07-06 10:25 | PRG ---
DATE OF SERVICE: 07/06/2019 SUBJECTIVE: Shea Rutherford remains in the ICU, on the vent, intubated, unresponsive. OBJECTIVE: VITAL SIGNS: Blood pressure 140/79, pulse 80, temperature 100.4, respiratory rate 20, unresponsive. CHEST: Decreased breath sounds. No wheezing. CARDIAC: Normal S1 and S2. No gallops. ABDOMEN: No masses. LABORATORY DATA: Lytes are normal. Glucose is 288. PO2 is 94, pCO2 25, pH is 7.55, rate of 4, 30%. ASSESSMENT: Intracerebral bleed, respiratory failure, hypertension, sepsis. Family has to make a decision. She is not weanable at this stage. She is a DNR. Continue supportive care. Broad-spectrum antibiotics. Neb treatment. One-half hour of critical time. Job ID: [id number]
--- NOTE | 2019-07-06 13:04 | PDOC.HOSPP ---
- Subjective Encounter Date: 07/06/19 Encounter Time: 10:45 Subjective: Sluggish response to pain.. - Objective Vital Signs & Weight: Vital Signs (12 hours) Temp Pulse Resp BP Pulse Ox 07/06/19 12:00 99.8 F H 14 07/06/19 11:34 70 113/78 07/06/19 11:04 70 07/06/19 10:00 16 07/06/19 08:55 140/79 07/06/19 08:00 100.4 F H 18 07/06/19 07:45 100 07/06/19 06:55 76 07/06/19 06:00 17 07/06/19 05:54 75 140/79 07/06/19 04:00 99.9 F H 17 07/06/19 03:46 75 07/06/19 02:00 17 Weight Admit Weight 138 lb Weight 140 lb 10.479 oz Most Recent Monitor Data Heart Rate from ECG 67 NIBP 114/75 NIBP BP-Mean 88 Respiration from ECG 15 SpO2 100 I&O: 07/05/19 07/06/19 07/07/19 06:59 06:59 06:59 Intake Total 3371 3577 Output Total 4593 4187 1184 [facility] -1222 -[phone] -1184 Result Diagrams: 07/05/19 06:43 07/06/19 03:15 Additional Labs: Accuchecks 07/06/19 07/06/19 07/06/19 12:21 05:57 00:29 POC Glucose 248 H 208 H 212 H 07/05/19 07/05/19 18:29 12:57 POC Glucose 213 H 316 H Hospitalist ROS - Medication Medications: Active Medications Generic Name Dose Route Start Last Admin Trade Name Freq PRN Reason Stop Dose Admin Acetaminophen 650 mg 07/01/19 17:02 07/03/19 20:07 Tylenol Elixir PER TUBE 650 mg Q4H PRN Administration Headache/Fever or Pain Carvedilol 25 mg 07/04/19 17:00 07/06/19 08:55 Coreg PO 25 mg BID-WM MATTHIAS Administration Hydralazine HCl 10 mg 06/25/19 19:24 07/03/19 01:20 Apresoline SLOW IVP 10 mg Q15MIN PRN Administration Sbp Greater Than 150 Hydralazine HCl 75 mg 07/04/19 12:00 01/11/20 11:34 Apresoline PO 75 mg Q6HR MATTHIAS Administration Levetiracetam 500 mg/ Device 100 mls @ 200 mls/hr 06/25/19 21:00 07/06/19 08: 53 IVPB 100 mls BID MATTHIAS Administration Nicardipine HCl 50 mg/ Sodium 250 mls @ 0 mls/hr 06/26/19 00:45 07/05/19 12: 49 Chloride IVPB 250 mls INF PRN Administration TO MAINTAIN SBP < 150 Protocol As Directed Micafungin Sodium 100 mg/ 100 mls @ 100 mls/hr 07/02/19 18:00 07/05/19 17:16 Sodium Chloride IVPB 100 mls 1800 MATTHIAS Administration Insulin Glargine 25 units/ 0.25 mls @ 1 mls/hr 07/04/19 09:00 07/06/19 08:55 Miscellaneous Medication SC 0.25 mls QAM MATTHIAS Administration Insulin Human Lispro 0 units 06/26/19 12:14 07/06/19 12:18 Humalog SC 4 unit .MODERATE SLIDING SC PRN Administration Moderate Correctional Scale Labetalol HCl 10 mg 06/25/19 19:08 06/30/19 07:16 Normodyne SLOW IVP 10 mg Q10MIN PRN Administration SBP > 150 or DBP > 90 Potassium Chloride 40 meq 07/02/19 09:46 07/04/19 06:19 Klor-Con PER TUBE 40 meq ASDIR PRN Administration FOR SERUM K+ 2.5-3.5 Sodium Chloride 10 ml 06/25/19 19:08 06/28/19 02:32 Flush - Normal Saline IVF 10 ml PRN PRN Administration Saline Flush - Exam Neck: no JVD Heart: RRR Respiratory: CTAB Gastrointestinal: soft Extremities: no edema Hosp A/P (1) Acute encephalopathy Code(s): G93.40 - ENCEPHALOPATHY, UNSPECIFIED Status: Acute (2) Acute respiratory failure with hypoxia Code(s): J96.01 - ACUTE RESPIRATORY FAILURE WITH HYPOXIA Status: Acute (3) Diabetes type 2, uncontrolled Code(s): E11.65 - TYPE 2 DIABETES MELLITUS WITH HYPERGLYCEMIA Status: Acute (4) Hypertensive intracerebral hemorrhage Code(s): I61.9 - NONTRAUMATIC INTRACEREBRAL HEMORRHAGE, UNSPECIFIED Status: Acute (5) Noncompliance with medication regimen Code(s): Z91.14 - PATIENT'S OTHER NONCOMPLIANCE WITH MEDICATION REGIMEN Status : Chronic - Plan Continue supportive therapy.. Family is deciding about extubation..
--- NOTE | 2019-07-06 15:34 | PRG ---
DATE OF SERVICE: 07/06/2019 Nurse reports the patient is slightly more alert. Otherwise, she is clinically unchanged. There has been some communication with some strange in distant family, but an imminent arrival this weekend does not seem likely. EVD is functional. No change in current plans. Job ID: [id number]
[2019-07-06] MEDS: Micafungin 100 MG in Sodium Chloride 0.9% 100 ML IVPB SCH (18:43)
[2019-07-06] MEDS: niCARdipine 50 MG in Sodium Chloride 0.9% 250 ML 230 ML IVPB PRN (23:49)
[2019-07-07] MEDS: hydrALAZINE 25 MG TAB PO SCH ×4 (05:11→23:08)
[2019-07-07] MEDS: HumaLOG 300 UNITS/3 ML VIAL SC PRN ×3 (05:22→17:11)
[2019-07-07] MEDS: niCARdipine 50 MG in Sodium Chloride 0.9% 250 ML 230 ML IVPB PRN ×2 (06:23→20:12)
[2019-07-07 06:43] LABS: Anion Gap 10 mmol/L (10-20); BUN (Urea Nitrogen) 20 mg/dL (7.0-18.7); Calc. Creatinine Clearance 89 mL/min (70-130); Carbon Dioxide 25 mmol/L (22-29); Chloride 117 mmol/L (98-107); Estimated GFR-MDRD 79; Glucose 244 mg/dL (70-105); Potassium 3.7 mmol/L (3.5-5.1); Sodium 148 mmol/L (136-145)
[2019-07-07] MEDS: Insulin Glargine 25 UNITS in Pre-Filled Syringe 1 EACH SC SCH (08:43)
[2019-07-07] MEDS: Carvedilol 6.25 MG TAB PO SCH ×2 (08:44→16:36)
--- NOTE | 2019-07-07 08:44 | PRG ---
DATE OF SERVICE: 07/07/2019 The patient continues to receive supportive care in the ICU. She has had no overnight events. Her EVD remains functional. Family did arrive last night and plan to return today for consideration of withdrawal of care. We will continue to follow along closely. Job ID: [id number]
--- NOTE | 2019-07-07 09:15 | PRG ---
DATE OF SERVICE: 07/07/2019 SUBJECTIVE: The patient is in ICU, intubated in the vent, unresponsive. OBJECTIVE: VITAL SIGNS: Blood pressure is 142/80, temperature 99, sats are 100%, respirations 15, pulse 80. HEENT: Pupils are equal. CHEST: No wheezing or crackles. CARDIAC: Normal S1, S2. No gallops. ABDOMEN: No masses. LABORATORY DATA: Lytes are normal. IMPRESSION AND PLAN: Hypertensive hemorrhage, respiratory failure. Family to decide comfort care. Extubation etc. Pulmonary will follow while in the ICU. One-half hour of critical time was spent. Job ID: [id number]
--- NOTE | 2019-07-07 10:50 | PDOC.HOSPP ---
- Subjective Encounter Date: 07/07/19 Encounter Time: 10:45 Subjective: Sluggish response to pain.. - Objective Vital Signs & Weight: Vital Signs (12 hours) Temp Pulse Resp BP Pulse Ox 07/07/19 10:20 69 07/07/19 10:00 8 L 07/07/19 08:44 161/91 H 07/07/19 08:01 99.9 F H 07/07/19 08:00 13 100 07/07/19 06:31 72 07/07/19 06:00 15 07/07/19 05:11 77 130/80 07/07/19 04:00 13 07/07/19 03:00 99.5 F 07/07/19 02:56 72 140/78 07/07/19 02:00 12 07/07/19 00:00 9 L 07/06/19 23:13 71 139/77 07/06/19 23:00 100.0 F H Weight Admit Weight 138 lb Weight 142 lb 3.17 oz Most Recent Monitor Data Heart Rate from ECG 66 NIBP 118/72 NIBP BP-Mean 87 Respiration from ECG 14 SpO2 99 I&O: 07/06/19 07/07/19 07/08/19 06:59 06:59 06:59 Intake Total 3571 3502 Output Total 5942 4365 905 [facility]610 -518 -452 Result Diagrams: 07/05/19 06:43 07/07/19 06:10 Additional Labs: Accuchecks 07/07/19 07/06/19 07/06/19 05:24 23:31 17:42 POC Glucose 214 H 224 H 224 H 07/06/19 12:21 POC Glucose 248 H Hospitalist ROS - Medication Medications: Active Medications Generic Name Dose Route Start Last Admin Trade Name Freq PRN Reason Stop Dose Admin Acetaminophen 650 mg 07/01/19 17:02 07/03/19 20:07 Tylenol Elixir PER TUBE 650 mg Q4H PRN Administration Headache/Fever or Pain Carvedilol 25 mg 07/04/19 17:00 07/07/19 08:44 Coreg PO 25 mg BID-WM MATTHIAS Administration Hydralazine HCl 10 mg 06/25/19 19:24 07/03/19 01:20 Apresoline SLOW IVP 10 mg Q15MIN PRN Administration Sbp Greater Than 150 Hydralazine HCl 75 mg 07/04/19 12:00 07/07/19 05:11 Apresoline PO 75 mg Q6HR MATTHIAS Administration Levetiracetam 500 mg/ Device 100 mls @ 200 mls/hr 06/25/19 21:00 07/07/19 08: 43 IVPB 100 mls BID MATTHIAS Administration Nicardipine HCl 50 mg/ Sodium 250 mls @ 0 mls/hr 06/26/19 00:45 07/07/19 06: 23 Chloride IVPB 250 mls INF PRN Administration TO MAINTAIN SBP < 150 Protocol As Directed Micafungin Sodium 100 mg/ 100 mls @ 100 mls/hr 07/02/19 18:00 07/06/19 18:43 Sodium Chloride IVPB 100 mls 1800 MATTHIAS Administration Insulin Glargine 25 units/ 0.25 mls @ 1 mls/hr 07/04/19 09:00 07/07/19 08:43 Miscellaneous Medication SC 0.25 mls QAM MATTHIAS Administration Insulin Human Lispro 0 units 06/26/19 12:14 07/07/19 05:22 Humalog SC 4 unit .MODERATE SLIDING SC PRN Administration Moderate Correctional Scale Labetalol HCl 10 mg 06/25/19 19:08 06/30/19 07:16 Normodyne SLOW IVP 10 mg Q10MIN PRN Administration SBP > 150 or DBP > 90 Potassium Chloride 40 meq 07/02/19 09:46 07/04/19 06:19 Klor-Con PER TUBE 40 meq ASDIR PRN Administration FOR SERUM K+ 2.5-3.5 Sodium Chloride 10 ml 06/25/19 19:08 06/28/19 02:32 Flush - Normal Saline IVF 10 ml PRN PRN Administration Saline Flush - Exam Neck: no JVD Heart: RRR Respiratory: CTAB Gastrointestinal: soft Extremities: no edema Hosp A/P (1) Acute encephalopathy Code(s): G93.40 - ENCEPHALOPATHY, UNSPECIFIED Status: Acute (2) Acute respiratory failure with hypoxia Code(s): J96.01 - ACUTE RESPIRATORY FAILURE WITH HYPOXIA Status: Acute (3) Diabetes type 2, uncontrolled Code(s): E11.65 - TYPE 2 DIABETES MELLITUS WITH HYPERGLYCEMIA Status: Acute (4) Hypertensive intracerebral hemorrhage Code(s): I61.9 - NONTRAUMATIC INTRACEREBRAL HEMORRHAGE, UNSPECIFIED Status: Acute (5) Noncompliance with medication regimen Code(s): Z91.14 - PATIENT'S OTHER NONCOMPLIANCE WITH MEDICATION REGIMEN Status : Chronic - Plan Continue supportive therapy.. Family is to decide about extubation..
[2019-07-07] MEDS: Acetaminophen 650 MG/20.3 ML UDCUP PER TUBE PRN (11:56)
--- NOTE | 2019-07-07 14:43 | PRG ---
DATE OF SERVICE: 07/07/2019 I visited with Ms. Ruthreford's son and best friend. The son has not seen his mother for some time, but did come in from out of town. Apparently, there is an ex- also involved, but he was not present and I did wait for some time, but he did not return. 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 Discussed that the options were permanent indwelling tracheostomy and PEG and placement versus withdrawal of care and hospice treatment. They expressed understanding. All questions were answered and they will consider and let us know how that she was to proceed. Job ID: [id number]
[2019-07-07] MEDS: Micafungin 100 MG in Sodium Chloride 0.9% 100 ML IVPB SCH (17:05)
[2019-07-08] MEDS: HumaLOG 300 UNITS/3 ML VIAL SC PRN ×3 (00:31→22:28)
[2019-07-08 04:14] LABS: Anion Gap 12 mmol/L (10-20); BUN (Urea Nitrogen) 22 mg/dL (7.0-18.7); Calc. Creatinine Clearance 98 mL/min (70-130); Calcium 7.9 mg/dL (7.8-10.44); Carbon Dioxide 23 mmol/L (22-29); Chloride 118 mmol/L (98-107); Estimated GFR-MDRD 89; Glucose 139 mg/dL (70-105); Potassium 3.3 mmol/L (3.5-5.1); Sodium 150 mmol/L (136-145)
[2019-07-08] MEDS: hydrALAZINE 25 MG TAB PO SCH ×4 (05:06→23:58)
[2019-07-08] MEDS: niCARdipine 50 MG in Sodium Chloride 0.9% 250 ML 230 ML IVPB PRN ×2 (05:07→17:36)
[2019-07-08] MEDS: Carvedilol 6.25 MG TAB PO SCH ×2 (08:29→17:35)
[2019-07-08] MEDS: Insulin Glargine 25 UNITS in Pre-Filled Syringe 1 EACH SC SCH (08:30)
--- NOTE | 2019-07-08 10:06 | PDOC.HOSPP ---
- Subjective Encounter Date: 07/08/19 Encounter Time: 10:03 Subjective: non-responsive - Objective Vital Signs & Weight: Vital Signs (12 hours) Temp Pulse Resp BP Pulse Ox 07/08/19 08:29 134/76 07/08/19 08:00 99.0 F 14 07/08/19 07:40 99 07/08/19 06:41 72 07/08/19 06:00 14 07/08/19 05:06 73 134/76 07/08/19 04:00 14 07/08/19 03:00 98.1 F 07/08/19 02:03 62 152/83 H 07/08/19 02:00 14 07/08/19 00:00 14 07/07/19 23:08 67 151/86 H 07/07/19 23:00 98.0 F 07/07/19 22:39 65 144/85 H Weight Admit Weight 138 lb Weight 140 lb 14.006 oz Most Recent Monitor Data Heart Rate from ECG 69 NIBP 135/76 NIBP BP-Mean 95 Respiration from ECG 18 SpO2 100 I&O: 07/07/19 07/08/19 07/09/19 06:59 06:59 06:59 Intake Total 3507 2985 Output Total 8489 9495 596 Balance -351 276 -232 Result Diagrams: 07/05/19 06:43 07/08/19 03:30 Additional Labs: Accuchecks 07/08/19 07/08/19 07/07/19 06:05 00:20 17:12 POC Glucose 141 H 169 H 206 H 07/07/19 11:54 POC Glucose 257 H Hospitalist ROS - Medication Medications: Active Medications Generic Name Dose Route Start Last Admin Trade Name Freq PRN Reason Stop Dose Admin Acetaminophen 650 mg 07/01/19 17:02 07/07/19 11:56 Tylenol Elixir PER TUBE 650 mg Q4H PRN Administration Headache/Fever or Pain Carvedilol 25 mg 07/04/19 17:00 07/08/19 08:29 Coreg PO 25 mg BID-WM MATTHIAS Administration Hydralazine HCl 10 mg 06/25/19 19:24 07/03/19 01:20 Apresoline SLOW IVP 10 mg Q15MIN PRN Administration Sbp Greater Than 150 Hydralazine HCl 75 mg 07/04/19 12:00 07/08/19 05:06 Apresoline PO 75 mg Q6HR MATTHIAS Administration Levetiracetam 500 mg/ Device 100 mls @ 200 mls/hr 06/25/19 21:00 07/08/19 08: 30 IVPB 100 mls BID MATTHIAS Administration Nicardipine HCl 50 mg/ Sodium 250 mls @ 0 mls/hr 06/26/19 00:45 07/08/19 05: 07 Chloride IVPB 250 mls INF PRN Administration TO MAINTAIN SBP < 150 Protocol As Directed Micafungin Sodium 100 mg/ 100 mls @ 100 mls/hr 07/02/19 18:00 07/07/19 17:05 Sodium Chloride IVPB 100 mls 1800 MATTHIAS Administration Insulin Glargine 25 units/ 0.25 mls @ 1 mls/hr 07/04/19 09:00 07/08/19 08:30 Miscellaneous Medication SC 0.25 mls QAM MATTHIAS Administration Insulin Human Lispro 0 units 06/26/19 12:14 07/08/19 00:31 Humalog SC 2 unit .MODERATE SLIDING SC PRN Administration Moderate Correctional Scale Labetalol HCl 10 mg 06/25/19 19:08 06/30/19 07:16 Normodyne SLOW IVP 10 mg Q10MIN PRN Administration SBP > 150 or DBP > 90 Potassium Chloride 40 meq 07/02/19 09:46 07/08/19 05:47 Klor-Con PER TUBE 40 meq ASDIR PRN Administration FOR SERUM K+ 2.5-3.5 Sodium Chloride 10 ml 06/25/19 19:08 06/28/19 02:32 Flush - Normal Saline IVF 10 ml PRN PRN Administration Saline Flush - Exam Neck: no JVD Heart: RRR, no murmur Respiratory: CTAB Gastrointestinal: soft, normal bowel sounds Extremities: no edema Hosp A/P (1) Acute encephalopathy Code(s): G93.40 - ENCEPHALOPATHY, UNSPECIFIED Status: Acute (2) Acute respiratory failure with hypoxia Code(s): J96.01 - ACUTE RESPIRATORY FAILURE WITH HYPOXIA Status: Acute (3) Hypertensive emergency Code(s): I16.1 - HYPERTENSIVE EMERGENCY Status: Acute (4) Hypertensive intracerebral hemorrhage Code(s): I61.9 - NONTRAUMATIC INTRACEREBRAL HEMORRHAGE, UNSPECIFIED Status: Acute (5) Diabetes type 2, uncontrolled Code(s): E11.65 - TYPE 2 DIABETES MELLITUS WITH HYPERGLYCEMIA Status: Chronic - Plan prognosis dismal vent dependent discussion re extubation vs trach and PEG in progress
--- NOTE | 2019-07-08 12:36 | PRG ---
DATE OF SERVICE: 07/08/2019 SERVICE: Pulmonary Medicine. INTERVAL HISTORY: The patient is doing poorly from a neurologic standpoint. The family is trying to decide whether or not to be aggressive with PEG tube and tracheostomy, or transition over to comfort care only. We are working them through this process. Ultimately, we will probably need to decide today which direction we are heading in. At this point, the patient has had more than adequate amount of time to make some neurologic recovery. That being said, her neurologic exam today is no different than it was a week ago. PHYSICAL EXAMINATION: VITAL SIGNS: Afebrile, pulse 56, blood pressure 135/86, respirations 17, saturation 100% with a PEEP of 5. GENERAL: The patient is intubated. She has been on no sedation for nearly two weeks. HEENT: Normocephalic and atraumatic. Sclerae white. Conjunctivae pink. Oral mucosa is moist without lesions. LUNGS: Decent air entry. Rhonchi are present. No wheezing or crackles are appreciated. HEART: Normal rate regular. ABDOMEN: Soft, nontender, nondistended. Bowel sounds are positive. MUSCULOSKELETAL: No cyanosis or clubbing. There is no pitting in bilateral lower extremities. NEUROLOGIC: Grossly nonfocal. LABORATORY DATA: WBC 16.0, hemoglobin 11.5, platelets 276,000. Sodium 150, potassium 3.3. Basic metabolic profile is otherwise unremarkable. Urinalysis is negative. HIV 1 and 2 are nonreactive. ASSESSMENT: 1. Acute respiratory failure secondary to inability to protect airway. 2. Intraparenchymal hemorrhage of the left thalamus with intraventricular extension, status post craniotomy with external ventricular drain placement, postop day 13. 3. Hypertensive emergency, resolved. 4. Sepsis, resolved. DISCUSSION AND PLAN: I will replace the potassium. We will continue giving free water. Critical Care will continue to follow while the patient remains in this location. Ultimately, the family will need to decide whether or not to transition over to comfort care only, or proceed with a tracheostomy and PEG tube placement. I have updated them at bedside. They do appreciate that I feel that she has a little to no likelihood of a meaningful recovery at this point. Job ID: [id number]
--- NOTE | 2019-07-08 13:35 | PRG ---
DATE OF SERVICE: 07/08/2019 This is Pedr oLuis Enrique PA-C dictating a report for Anam Barroso MD. Ms. Rutherford is hospital day #13, having sustained a devastating left thalamic hypertensive bleed, subsequent evacuation and placement of EVD. The patient had shown no meaningful recovery since surgery. She does open her eyes to noxious stimulus and will withdraw in all the extremities, but otherwise does not attend the examiner or formally follow commands. Her EVD continues to be patent and has put out a range of 6 to 20 mL of CSF per hour. She is currently afebrile with systolic blood pressure in the 150s. Her sodium today is 150 up from 148, potassium is a little bit low. At this point, decision needs to be made by family should we continue with aggressive measures or transition her to comfort measures. The family was not at bedside for me to update them today. Again, a decision needs to be made depending on whether the patient should proceed with shunt placement, trach and PEG placement, or withdrawal of care. Please call with any changes in the patient's neurologic status, otherwise Neurosurgery will continue to follow. Job ID: [id number]
[2019-07-08] MEDS: Micafungin 100 MG in Sodium Chloride 0.9% 100 ML IVPB SCH (17:35)
[2019-07-09 04:47] LABS: #Eosinphils 0.4 thou/uL (0.0-0.7); #Lymphocytes 1.9 thou/uL (1.20-3.40); #Monocytes 0.9 thou/uL (0.11-0.59); #Neutrophils 8.8 thou/uL (1.40-6.50); %Basophils 0.4 % (0.0-1.0); %Eosinophils 3.5 % (0.0-10.0); %Lymphocytes 15.8 % (21.0-51.0); %Monocytes 7.1 % (0.0-10.0); %Neutrophils 73.3 % (42.0-75.0); Hemoglobin 11.3 g/dL (12.0-16.0); Mean Corpuscular HGB CONC 32.2 g/dL (32.0-36.0); Mean Corpuscular Hemoglobin 28.9 pg (27.0-31.0); Mean Corpuscular Volume 89.8 fL (78.0-98.0); Mean Platelet Volume 12.4 fL (7.4-10.4); Platelet Count 243 thou/uL (130-400); RBC Distribution Width 13.8 % (11.5-14.5)
[2019-07-09 05:09] LABS: Anion Gap 13 mmol/L (10-20); BUN (Urea Nitrogen) 23 mg/dL (7.0-18.7); Calc. Creatinine Clearance 100 mL/min (70-130); Calcium 8.4 mg/dL (7.8-10.44); Carbon Dioxide 22 mmol/L (22-29); Chloride 119 mmol/L (98-107); Estimated GFR-MDRD Greater than 90; Glucose 136 mg/dL (70-105); Magnesium 2.4 mg/dL (1.6-2.6); Phosphorus 3.2 mg/dL (2.3-4.7); Potassium 3.8 mmol/L (3.5-5.1); Sodium 150 mmol/L (136-145)
[2019-07-09] MEDS: hydrALAZINE 25 MG TAB PO SCH ×4 (05:42→23:12)
[2019-07-09] MEDS: Carvedilol 6.25 MG TAB PO SCH ×2 (08:34→16:44)
[2019-07-09] MEDS: Insulin Glargine 25 UNITS in Pre-Filled Syringe 1 EACH SC SCH (08:35)
--- NOTE | 2019-07-09 08:38 | PDOC.HOSPP ---
- Subjective Encounter Date: 07/09/19 Encounter Time: 08:31 Subjective: intubated, unresponsive - Objective Vital Signs & Weight: Vital Signs (12 hours) Temp Pulse Resp BP Pulse Ox 07/09/19 08:00 16 07/09/19 07:24 99 07/09/19 07:00 99.3 F 07/09/19 06:32 79 147/84 H 07/09/19 06:00 16 07/09/19 05:42 63 168/92 H 07/09/19 04:00 16 07/09/19 02:21 55 L 136/80 07/09/19 02:00 99.1 F 16 07/09/19 00:00 15 07/08/19 23:58 60 150/87 H 07/08/19 22:00 57 L 14 120/69 07/08/19 21:00 99.3 F Weight Admit Weight 138 lb Weight 141 lb 8.588 oz Most Recent Monitor Data Heart Rate from ECG 71 NIBP 152/84 NIBP BP-Mean 106 Respiration from ECG 19 SpO2 99 I&O: 07/08/19 07/09/19 07/10/19 06:59 06:59 06:59 Intake Total 2985 1508 30 Output Total 2621 2840 528 Balance 847 -1544 -631 Result Diagrams: 07/09/19 04:00 07/09/19 04:00 Additional Labs: Accuchecks 07/08/19 07/08/19 07/08/19 22:23 17:48 12:21 POC Glucose 217 H 147 H 222 H Hospitalist ROS - Medication Medications: Active Medications Generic Name Dose Route Start Last Admin Trade Name Freq PRN Reason Stop Dose Admin Acetaminophen 650 mg 07/01/19 17:02 07/07/19 11:56 Tylenol Elixir PER TUBE 650 mg Q4H PRN Administration Headache/Fever or Pain Carvedilol 25 mg 07/04/19 17:00 07/08/19 17:35 Coreg PO 25 mg BID-WM MATTHIAS Administration Hydralazine HCl 10 mg 06/25/19 19:24 07/03/19 01:20 Apresoline SLOW IVP 10 mg Q15MIN PRN Administration Sbp Greater Than 150 Hydralazine HCl 75 mg 07/04/19 12:00 07/09/19 05:42 Apresoline PO 75 mg Q6HR MATTHIAS Administration Levetiracetam 500 mg/ Device 100 mls @ 200 mls/hr 06/25/19 21:00 07/08/19 20: 55 IVPB 100 mls BID MATTHIAS Administration Nicardipine HCl 50 mg/ Sodium 250 mls @ 0 mls/hr 06/26/19 00:45 07/08/19 17: 36 Chloride IVPB 250 mls INF PRN Administration TO MAINTAIN SBP < 150 Protocol As Directed Micafungin Sodium 100 mg/ 100 mls @ 100 mls/hr 07/02/19 18:00 07/08/19 17:35 Sodium Chloride IVPB 100 mls 1800 MATTHIAS Administration Insulin Glargine 25 units/ 0.25 mls @ 1 mls/hr 07/04/19 09:00 07/08/19 08:30 Miscellaneous Medication SC 0.25 mls QAM MATTHIAS Administration Insulin Human Lispro 0 units 06/26/19 12:14 07/08/19 22:28 Humalog SC 4 unit .MODERATE SLIDING SC PRN Administration Moderate Correctional Scale Labetalol HCl 10 mg 06/25/19 19:08 06/30/19 07:16 Normodyne SLOW IVP 10 mg Q10MIN PRN Administration SBP > 150 or DBP > 90 Potassium Chloride 40 meq 07/02/19 09:46 07/08/19 05:47 Klor-Con PER TUBE 40 meq ASDIR PRN Administration FOR SERUM K+ 2.5-3.5 Sodium Chloride 10 ml 06/25/19 19:08 06/28/19 02:32 Flush - Normal Saline IVF 10 ml PRN PRN Administration Saline Flush - Exam Neck: no JVD Heart: no murmur Respiratory: CTAB Gastrointestinal: soft, normal bowel sounds Extremities: no edema Hosp A/P (1) Acute encephalopathy Code(s): G93.40 - ENCEPHALOPATHY, UNSPECIFIED Status: Acute (2) Acute respiratory failure with hypoxia Code(s): J96.01 - ACUTE RESPIRATORY FAILURE WITH HYPOXIA Status: Acute (3) Hypertensive emergency Code(s): I16.1 - HYPERTENSIVE EMERGENCY Status: Acute (4) Hypertensive intracerebral hemorrhage Code(s): I61.9 - NONTRAUMATIC INTRACEREBRAL HEMORRHAGE, UNSPECIFIED Status: Acute (5) Diabetes type 2, uncontrolled Code(s): E11.65 - TYPE 2 DIABETES MELLITUS WITH HYPERGLYCEMIA Status: Chronic - Plan prognosis dismal vent dependent family desires 1 more week agressive care cont vent, etc
[2019-07-09] MEDS: Dextrose 5% in Water 1,000 ML IV SCH (09:24)
--- NOTE | 2019-07-09 09:38 | PRG ---
DATE OF SERVICE: 07/09/2019 SERVICE: Pulmonary Medicine. INTERVAL HISTORY: The patient is doing fine from respiratory standpoint. That being said, neurologically, things have not changed. She cannot provide any additional elements of the history. Otherwise, no interval change to her condition. Her sodium remains elevated. I had multiple conversations with the patient's son, and the patient's son's father. Ultimately, they decided on waiting another week and transition over to comfort care only if she does not make any neurologic improvement over this period of time. Because of the risk of infection from the EVD, Neurosurgery team is electing to proceed with a HOSPICE CASE MANAGER shunt. PHYSICAL EXAMINATION: VITAL SIGNS: Afebrile. Pulse 70, blood pressure 152/89, respirations 16, saturation 99% on room air. GENERAL: The patient is awake and alert, in no apparent distress. LUNGS: Very good air entry. No prolonged expiratory phase or wheezing present. HEART: Normal rate. Regular. ABDOMEN: Soft, nontender, and nondistended. Bowel sounds are positive. MUSCULOSKELETAL: No cyanosis or clubbing. There is no pitting in the bilateral lower extremities. LABORATORY DATA: WBC 12.0, hemoglobin 11.3, platelets 243,000. Sodium 150, chloride 119. Basic metabolic profile; magnesium and phosphorus are otherwise unremarkable. ASSESSMENT: 1. Acute hypoxic respiratory failure secondary to inability to protect airway. 2. Intraparenchymal hemorrhage of the left thalamus with intraventricular extension, status post craniotomy with external ventricular drain placement, postop day # 14. 3. Hypertensive emergency. 4. Sepsis, resolved. DISCUSSION AND PLAN: The patient has not made any neurologic improvement over the last 2 weeks. That being said, the next of kin has just now seen her for 2 days. As such, they would like to have the opportunity to watch her neurologic function over the next couple of days. They are leaning toward transition over to comfort care only, but do one additional time. As such, hold off on any tracheostomy or PEG tube placement. They have already conceded that the patient would not want to live in a permanently debilitated state. Some D5 water will be initiated today. Job ID: [id number] MTDD
[2019-07-09] MEDS: HumaLOG 300 UNITS/3 ML VIAL SC PRN ×3 (09:44→23:27)
[2019-07-09] MEDS: niCARdipine 50 MG in Sodium Chloride 0.9% 250 ML 230 ML IVPB PRN ×2 (10:17→20:45)
--- NOTE | 2019-07-09 10:25 | PRG ---
DATE OF SERVICE: 07/09/2019 I had a long discussion with the patient and the patient's ex- yesterday, who is the father of the son, who is the decision maker. The son seeks his advice, however, from his father, who is the ex-. As such, I have spoken at length with both of them. There is some concern that the son does not fully understand potentially the gravity of the situation and the chance that there is really no hope for a functional or independent outcome. All that being said, they have requested another week of intensive care. If this is to be the case, I have let the ex- know that I would recommend internalization of her external ventricular drain in the form of a shunt. We will send CSF this morning no microbial growth in the central nervous system. She clearly needs shunting as her drain output is more than 10 mL hourly over a 24-hour period. Her CSF is certainly clearing. From a laboratory assessment, she has very mild leukocytosis and is hypernatremic at 150. Glucose control has been a bit challenging as well given her untreated diabetes. We sent CSF today, which demonstrates a glucose of 93, consistent with her elevated glucose in the blood, and also a CSF protein that is slightly high at 42. She has not been febrile since noon on July 07. We will continue to follow up on the CSF sample. We will plan for head CT later in the week and placement of the shunt as long as everything remains acceptable on Monday morning. Job ID: [id number]
[2019-07-09 10:52] LABS: CSF Source CSF; Clarity Hazy (Clear); Tube # EDTA
[2019-07-09 10:59] LABS: Cell Count Non Hematic 29 %; Lymphocytes 45 %; Segmented Neutrophils 26 %
[2019-07-09] MEDS: Micafungin 100 MG in Sodium Chloride 0.9% 100 ML IVPB SCH (17:36)
[2019-07-09] MEDS: Famotidine/PF 20 mg/2ml Vial SLOW IVP SCH (20:49)
[2019-07-10 04:28] LABS: #Basophils 0.1 thou/uL (0.0-0.2); #Eosinphils 0.3 thou/uL (0.0-0.7); #Lymphocytes 1.4 thou/uL (1.20-3.40); #Monocytes 0.6 thou/uL (0.11-0.59); #Neutrophils 8.8 thou/uL (1.40-6.50); %Basophils 0.5 % (0.0-1.0); %Eosinophils 2.5 % (0.0-10.0); %Lymphocytes 12.9 % (21.0-51.0); %Monocytes 5.1 % (0.0-10.0); Hemoglobin 10.7 g/dL (12.0-16.0); Mean Corpuscular HGB CONC 32.1 g/dL (32.0-36.0); Mean Corpuscular Hemoglobin 28.4 pg (27.0-31.0); Mean Corpuscular Volume 88.7 fL (78.0-98.0); Mean Platelet Volume 11.8 fL (7.4-10.4); Platelet Count 243 thou/uL (130-400); RBC Distribution Width 13.7 % (11.5-14.5); Red Blood Cell (RBC) Count 3.77 mill/uL (4.20-5.40); White Blood Cell (WBC) Count 11.1 thou/uL (4.8-10.8)
[2019-07-10 04:51] LABS: Anion Gap 11 mmol/L (10-20); BUN (Urea Nitrogen) 18 mg/dL (7.0-18.7); Calc. Creatinine Clearance 99 mL/min (70-130); Calcium 7.9 mg/dL (7.8-10.44); Carbon Dioxide 25 mmol/L (22-29); Chloride 110 mmol/L (98-107); Estimated GFR-MDRD 90; Glucose 233 mg/dL (70-105); Magnesium 2.3 mg/dL (1.6-2.6); Potassium 3.8 mmol/L (3.5-5.1); Sodium 142 mmol/L (136-145)
[2019-07-10] MEDS: Dextrose 5% in Water 1,000 ML IV SCH (05:13)
[2019-07-10] MEDS: hydrALAZINE 25 MG TAB PO SCH ×3 (05:13→17:24)
[2019-07-10] MEDS: HumaLOG 300 UNITS/3 ML VIAL SC PRN ×4 (05:15→22:36)
[2019-07-10] MEDS: Famotidine/PF 20 mg/2ml Vial SLOW IVP SCH (08:14)
[2019-07-10] MEDS: Insulin Glargine 25 UNITS in Pre-Filled Syringe 1 EACH SC SCH (08:15)
--- NOTE | 2019-07-10 09:06 | PDOC.HOSPP ---
- Subjective Encounter Date: 07/10/19 Encounter Time: 09:03 non-verbal - Objective Vital Signs & Weight: Vital Signs (12 hours) Temp Pulse Resp BP 07/10/19 07:01 53 L 135/84 07/10/19 05:53 18 07/10/19 05:13 63 116/67 07/10/19 04:00 99.1 F 15 07/10/19 02:00 15 07/10/19 00:00 98.8 F 15 07/09/19 23:12 62 135/82 07/09/19 22:00 15 Weight Admit Weight 138 lb Weight 141 lb 8.588 oz Most Recent Monitor Data Heart Rate from ECG 54 NIBP 116/76 NIBP BP-Mean 89 Respiration from ECG 21 SpO2 100 I&O: 07/09/19 07/10/19 07/11/19 06:59 06:59 06:59 Intake Total 1508 3861 Output Total 2840 3309 Balance -1332 552 Result Diagrams: 07/10/19 04:00 07/10/19 04:00 Additional Labs: Accuchecks 07/09/19 07/09/19 07/09/19 23:27 15:50 09:47 POC Glucose 203 H 159 H 172 H Hospitalist ROS - Medication Medications: Active Medications Generic Name Dose Route Start Last Admin Trade Name Freq PRN Reason Stop Dose Admin Acetaminophen 650 mg 07/01/19 17:02 07/07/19 11:56 Tylenol Elixir PER TUBE 650 mg Q4H PRN Administration Headache/Fever or Pain Carvedilol 25 mg 07/04/19 17:00 07/09/19 16:44 Coreg PO 25 mg BID-WM MATTHIAS Administration Famotidine 20 mg 07/09/19 21:00 07/10/19 08:14 Pepcid SLOW IVP 20 mg BID MATTHIAS Administration Hydralazine HCl 10 mg 06/25/19 19:24 07/03/19 01:20 Apresoline SLOW IVP 10 mg Q15MIN PRN Administration Sbp Greater Than 150 Hydralazine HCl 75 mg 07/04/19 12:00 07/10/19 05:13 Apresoline PO 75 mg Q6HR MATTHIAS Administration Levetiracetam 500 mg/ Device 100 mls @ 200 mls/hr 06/25/19 21:00 07/10/19 08: 14 IVPB 100 mls BID MATTHIAS Administration Nicardipine HCl 50 mg/ Sodium 250 mls @ 0 mls/hr 06/26/19 00:45 07/09/19 20: 45 Chloride IVPB 250 mls INF PRN Administration TO MAINTAIN SBP < 150 Protocol As Directed Micafungin Sodium 100 mg/ 100 mls @ 100 mls/hr 07/02/19 18:00 07/09/19 17:36 Sodium Chloride IVPB 100 mls 1800 MATTHIAS Administration Insulin Glargine 25 units/ 0.25 mls @ 1 mls/hr 07/04/19 09:00 07/10/19 08:15 Miscellaneous Medication SC 0.25 mls QAM MATTHIAS Administration Dextrose/Water 1,000 mls @ 50 mls/hr 07/09/19 09:15 07/10/19 05:13 D5w IV 1,000 mls .Q20H MATTHIAS Administration Insulin Human Lispro 0 units 06/26/19 12:14 07/10/19 05:15 Humalog SC 4 unit .MODERATE SLIDING SC PRN Administration Moderate Correctional Scale Labetalol HCl 10 mg 06/25/19 19:08 06/30/19 07:16 Normodyne SLOW IVP 10 mg Q10MIN PRN Administration SBP > 150 or DBP > 90 Potassium Chloride 40 meq 07/02/19 09:46 07/08/19 05:47 Klor-Con PER TUBE 40 meq ASDIR PRN Administration FOR SERUM K+ 2.5-3.5 Sodium Chloride 10 ml 06/25/19 19:08 06/28/19 02:32 Flush - Normal Saline IVF 10 ml PRN PRN Administration Saline Flush - Exam Neck: no JVD Heart: RRR, no murmur Respiratory: CTAB Gastrointestinal: soft, normal bowel sounds Extremities: no edema Neurological - other findings: pos dolls eye manuever, absent DTRs Hosp A/P (1) Acute encephalopathy Code(s): G93.40 - ENCEPHALOPATHY, UNSPECIFIED Status: Acute (2) Acute respiratory failure with hypoxia Code(s): J96.01 - ACUTE RESPIRATORY FAILURE WITH HYPOXIA Status: Acute (3) Hypertensive emergency Code(s): I16.1 - HYPERTENSIVE EMERGENCY Status: Acute (4) Hypertensive intracerebral hemorrhage Code(s): I61.9 - NONTRAUMATIC INTRACEREBRAL HEMORRHAGE, UNSPECIFIED Status: Acute (5) Diabetes type 2, uncontrolled Code(s): E11.65 - TYPE 2 DIABETES MELLITUS WITH HYPERGLYCEMIA Status: Chronic - Plan prognosis dismal vent dependent family desires 1 more week agressive care cont vent, etc
[2019-07-10] MEDS: Carvedilol 6.25 MG TAB PO SCH ×2 (10:21→18:25)
--- NOTE | 2019-07-10 12:32 | PRG ---
DATE OF SERVICE: 07/10/2019 DICTATING FOR: Anam Barroso MD. This is a postoperative recheck. Ms. Rutherford is now 15 days postop having sustained large left thalamic bleed, subsequent EVD placement. She is scheduled for shunt placement on Monday. She has remained afebrile. At this point, we sent CSF for culturing and evaluation and the culture has been negative for growth as well as Gram stain. The patient continues to have no significant improvement in her neurologic exam. She opens her eyes to noxious stimulus, but not to command. She will not follow commands. She withdraws in the bilateral lower extremities at this time. Her drain output has been roughly 11 mL/hour and her ICPs have remained less than 10. We will order an ultrasound for today and a head CT for tomorrow and again plan for shunt placement on Monday. Dr. Barroso did update the patient's ex- yesterday and they wished to proceed with shunt placement on Monday. Job ID: [id number]
--- NOTE | 2019-07-10 13:18 | ULT ---
EXAM: Bilateral lower extremity venous ultrasound HISTORY: Bilateral lower extremity pain and edema COMPARISON: 07/02/2019 TECHNIQUE: Multiplanar grayscale and color Doppler images were obtained in a bilateral lower extremit y venous ultrasound. Spectral analysis of the Doppler waveforms were performed. FINDINGS: Thrombus is visualized in the left proximal superficial femoral vein. The left common femor al vein and popliteal vein are patent without evidence of thrombus. The left greater saphenous vein and posterior tibial veins are patent without evidence of thrombus. No thrombus is seen in the right lower extremity. IMPRESSION: Interval development of left lower extremity DVT
--- NOTE | 2019-07-10 13:27 | PRG ---
DATE OF SERVICE: 07/10/2019 SERVICE: Pulmonary Medicine. INTERVAL HISTORY: The patient is doing really well from respiratory standpoint. Neurologically, nothing is changed. There were no significant events overnight. She cannot provide any additional elements of the history. PHYSICAL EXAMINATION: VITAL SIGNS: Afebrile, pulse 60, blood pressure 179/109, respirations 17, and saturation 100% on 30% FiO2 and a PEEP of 5. GENERAL: The patient is intubated. She is on no sedation since being here. HEART: Normal rate and regular. ABDOMEN: Soft, nontender, and nondistended. Bowel sounds are positive. MUSCULOSKELETAL: No cyanosis or clubbing. There is no pitting throughout. LABORATORY DATA: WBC 11.1, hemoglobin 10.7, and platelets 243,000. Basic metabolic profile is unremarkable. Magnesium and phosphorous fall within the normal limits. Potassium 3.8. ASSESSMENT: 1. Acute respiratory failure secondary to inability to protect airway. 2. Intraparenchymal hemorrhage of the left thalamus with extension into intraventricular space, status post craniotomy and external ventricular drain, postop day #15. 3. Hypertensive emergency. 4. Sepsis, resolved. DISCUSSION AND PLAN: I will drop the Coreg dose as her bradyarrhythmia is increasing. We will increase her blood pressure medications. Ancef will be initiated as she continues to have an external drain in place. Micafungin can be discontinued. D5 water will also be discontinued. Critical Care will follow in this location. Ultimately, the family is transitioned over to comfort care in 4 or 5 more days. As such, I do not see the need to put her through tracheostomy and PEG tube at this time. Job ID: [id number]
[2019-07-10] MEDS ORDERED: CEFAZOLIN 1 GM VIAL SLOW IVP SCH (14:00)
[2019-07-10] MEDS: ceFAZolin 1 GM/D5W 1 GM in Premix Bag 1 BAG IVPB SCH ×2 (14:39→22:35)
[2019-07-10] MEDS: Famotidine 20 MG TAB PER TUBE SCH (19:37)
[2019-07-11] MEDS: hydrALAZINE 25 MG TAB PO SCH ×5 (01:20→23:05)
[2019-07-11] MEDS: HumaLOG 300 UNITS/3 ML VIAL SC PRN ×3 (04:12→21:38)
[2019-07-11] MEDS: ceFAZolin 1 GM/D5W 1 GM in Premix Bag 1 BAG IVPB SCH ×3 (07:57→21:34)
[2019-07-11] MEDS: Carvedilol 6.25 MG TAB PO SCH ×2 (07:58→17:18)
[2019-07-11] MEDS: Famotidine 20 MG TAB PER TUBE SCH ×2 (07:59→20:53)
[2019-07-11] MEDS: Insulin Glargine 25 UNITS in Pre-Filled Syringe 1 EACH SC SCH (07:59)
--- NOTE | 2019-07-11 08:28 | CT ---
PRELIMINARY REPORT/[facility]/EMERGENCY AFTER HOURS PROCEDURE PROCEDURE: CT Head without Contrast . HISTORY: Follow-up thalamic hemorrhage. TECHNIQUE: Axial images were performed without the administration of IV contrast with or without mult iplanar reformations . COMPARISON: 06/27/2019. FINDINGS: Resolving LEFT intrathalamic and periventricular hemorrhage compared to previous study with continued adjacent edema. Some improvement in the interventricular hemorrhage with moderate amount remaining in the posterior a nd temporal horn on the LEFT with dilatation and probable isolation due to compression by the patient 's intraparenchymal hemorrhage on the LEFT. Remainder the ventricles appear normal size. Continued LEFT anterior ventriculostomy tube with the tip in the roof of the 3rd ventricle. Unchanged 6 mm midline shift of the septum pellucidum to the RIGHT. No other acute change identified IMPRESSION: Resolving intraparenchymal and interventricular hemorrhage LEFT cerebrum and lateral ventricle as mynor cribed above. Continued dilatation of the posterior temporal horn of the LEFT lateral ventricle that's probably iso lated due to compression by the intraparenchymal hemorrhage. Unchanged midline shift to the RIGHT. ELECTRONICALLY SIGNED BY: Ronald Johansen MD Jul 11, 2019 3:57:16 AM METALS ANALYST This report is intended for review by the ordering physician only, in accordance of law. If you recei ve this report in error, please call [facility] at [phone]. FINAL REPORT EMERGENT AFTER HOURS CT OF THE BRAIN WITHOUT CONTRAST: FINDINGS/IMPRESSION: I agree with the findings and impression given in the preliminary report per [facility] physici an. There is a resolving intraparenchymal and intraventricular hemorrhage. The ventricles are not d ilated. The left temporal horn is smaller than it was on the prior examination. POS: OFF
--- NOTE | 2019-07-11 08:33 | PRG ---
DATE OF SERVICE: 07/11/2019 SERVICE: Pulmonary Medicine. INTERVAL HISTORY: The patient is doing really well from respiratory standpoint. That being said, neurologically, she continues to have a devastating neurologic injury. Unfortunately, she was sent down for a repeat CT of the head this morning. Otherwise, there has been no interval events. PHYSICAL EXAMINATION: VITAL SIGNS: Afebrile, pulse 62 blood pressure 151/97, respirations 30, saturation 95%, currently on 27% FiO2 and a PEEP of 5. GENERAL: The patient is intubated. She is on no sedation and has not been for over 2 weeks. HEENT: Normocephalic. An EVD is in place. Sclerae white. Conjunctivae pink. Oral and nasal mucosa is moist without lesions. LUNGS: Decent air entry bilaterally. No prolonged expiratory phase is present. Some rhonchi there. HEART: Normal rate, regular. ABDOMEN: Soft, nontender, nondistended. Bowel sounds are positive. MUSCULOSKELETAL: No cyanosis or clubbing. There is no pitting in the bilateral lower extremities. NEUROLOGIC: The patient continues to spontaneously open and close her eyes, but she does not attend. She has a pronounced crossed extensor reflex of the bilateral lower extremities with upgoing Babinski. She postures with noxious stimuli to the right upper extremity. She does not withdraw from noxious stimuli in the left upper extremity. Pupils are equal, round, reactive, she coughs, gags, and over breathe the ventilator comfortably. IMAGIN. Ultrasound of the bilateral lower extremities demonstrates interval development of a DVT. 2. CT of the brain demonstrates persistent blood of the left thalamus. The ventricles are otherwise compressed posteriorly, there are loss of sulci. Official read is currently pending, but there is less blood in the ventricle, there is expected evolution of the bleed. Otherwise, it appears roughly stable. ASSESSMENT: 1. Acute respiratory failure secondary to inability to protect airway. 2. Intraparenchymal hemorrhage of the left thalamus with extension into the intraventricular space, status post craniotomy and external ventricular drain placement, postop day 16. 3. Hypertensive emergency. 4. Sepsis, resolved. DISCUSSION AND PLAN: We are going to continue supportive care basically through this weekend. If the family comes in on Monday and she has not made any significant neurologic improvement, they indicate to me their plan will be to transition over to comfort care and allow her to from natural causes. In light of this, we are going to hold off on PEG tube and tracheostomy. I discussed holding off on the [employer] shunt with Dr. Barroso and holding off on the IVC filter. He believes that this is perfectly reasonable. At this point in time, anticoagulation is still contraindicated. Critical Care will follow. Job ID: [id number]
--- NOTE | 2019-07-11 08:41 | PDOC.HOSPP ---
- Subjective Encounter Date: 07/11/19 Encounter Time: 08:39 Subjective: intubated, sedated - Objective Vital Signs & Weight: Vital Signs (12 hours) Temp Pulse Resp BP Pulse Ox 07/11/19 07:58 141/78 H 07/11/19 07:57 64 141/78 H 07/11/19 07:08 58 L 155/99 H 07/11/19 06:00 14 07/11/19 04:00 99 F 15 07/11/19 02:00 98.8 F 15 07/11/19 01:20 157/87 H 07/11/19 00:00 99.1 F 20 100 07/10/19 22:00 99 F 20 Weight Admit Weight 138 lb Weight 132 lb 4.438 oz Most Recent Monitor Data Heart Rate from ECG 60 NIBP 141/78 NIBP BP-Mean 99 Respiration from ECG 15 SpO2 100 I&O: 07/10/19 07/11/19 07/12/19 06:59 06:59 06:59 Intake Total 3861 3107 Output Total 3309 1477 Balance 552 1630 Result Diagrams: 07/10/19 04:00 07/10/19 04:00 Additional Labs: Accuchecks 07/11/19 07/10/19 07/10/19 04:14 22:34 17:10 POC Glucose 190 H 155 H 209 H 07/10/19 11:09 POC Glucose 242 H Hospitalist ROS - Medication Medications: Active Medications Generic Name Dose Route Start Last Admin Trade Name Freq PRN Reason Stop Dose Admin Acetaminophen 650 mg 07/01/19 17:02 07/07/19 11:56 Tylenol Elixir PER TUBE 650 mg Q4H PRN Administration Headache/Fever or Pain Carvedilol 12.5 mg 07/10/19 17:00 07/11/19 07:58 Coreg PO 12.5 mg BID-WM MATTHIAS Administration Famotidine 20 mg 07/10/19 21:00 07/11/19 07:59 Pepcid PER TUBE 20 mg BID MATTHIAS Administration Hydralazine HCl 10 mg 06/25/19 19:24 07/03/19 01:20 Apresoline SLOW IVP 10 mg Q15MIN PRN Administration Sbp Greater Than 150 Hydralazine HCl 75 mg 07/04/19 12:00 07/11/19 07:57 Apresoline PO 75 mg Q6HR MATTHIAS Administration Levetiracetam 500 mg/ Device 100 mls @ 200 mls/hr 06/25/19 21:00 07/11/19 08: 00 IVPB 100 mls BID MATTHIAS Administration Nicardipine HCl 50 mg/ Sodium 250 mls @ 0 mls/hr 06/26/19 00:45 07/09/19 20: 45 Chloride IVPB 250 mls INF PRN Administration TO MAINTAIN SBP < 150 Protocol As Directed Insulin Glargine 25 units/ 0.25 mls @ 1 mls/hr 07/04/19 09:00 07/11/19 07:59 Miscellaneous Medication SC 0.25 mls QAM MATTHIAS Administration Cefazolin Sodium/Dextrose 1 gm 50 mls @ 100 mls/hr 07/10/19 14:00 07/11/19 07 :57 / Device IVPB 50 mls Q8HR MATTHIAS Administration Insulin Human Lispro 0 units 06/26/19 12:14 07/11/19 04:12 Humalog SC 2 unit .MODERATE SLIDING SC PRN Administration Moderate Correctional Scale Labetalol HCl 10 mg 06/25/19 19:08 06/30/19 07:16 Normodyne SLOW IVP 10 mg Q10MIN PRN Administration SBP > 150 or DBP > 90 Potassium Chloride 40 meq 07/02/19 09:46 07/08/19 05:47 Klor-Con PER TUBE 40 meq ASDIR PRN Administration FOR SERUM K+ 2.5-3.5 Sodium Chloride 10 ml 06/25/19 19:08 06/28/19 02:32 Flush - Normal Saline IVF 10 ml PRN PRN Administration Saline Flush - Exam Neck: no JVD Heart: RRR, no murmur Respiratory - other findings: coarse BS Gastrointestinal: soft, normal bowel sounds Extremities: no edema Hosp A/P (1) Acute encephalopathy Code(s): G93.40 - ENCEPHALOPATHY, UNSPECIFIED Status: Acute (2) Acute respiratory failure with hypoxia Code(s): J96.01 - ACUTE RESPIRATORY FAILURE WITH HYPOXIA Status: Acute (3) Hypertensive emergency Code(s): I16.1 - HYPERTENSIVE EMERGENCY Status: Acute (4) Hypertensive intracerebral hemorrhage Code(s): I61.9 - NONTRAUMATIC INTRACEREBRAL HEMORRHAGE, UNSPECIFIED Status: Acute (5) Diabetes type 2, uncontrolled Code(s): E11.65 - TYPE 2 DIABETES MELLITUS WITH HYPERGLYCEMIA Status: Chronic (6) Left leg DVT Code(s): I82.402 - ACUTE EMBOLISM AND THOMBOS UNSP DEEP VEINS OF L LOW EXTREM Status: Acute - Plan prognosis dismal vent dependent currrent plan- 5 more days agressive care, if no improvment , withdraw support. if not, trach PEG, IVC filter
--- NOTE | 2019-07-11 08:45 | PRG ---
DATE OF SERVICE: 07/11/2019 SUBJECTIVE: Ms. Rutherford is now 16 days into her hospitalization from left transcortical evacuation of intraventricular hemorrhage with adventism of CSF flow and placement of external ventricular drain along with fenestration of the septum pellucidum. In essence, she has made no meaningful recovery. This morning, she withdraws. She opens her eyes to noxious stimuli and she remains intubated given her GCS of 6T. Unfortunately, her external ventricular drain remains open at 0 and is functioning with approximately 10 to 12 mL out hourly and ICPs in the 3 to 5 mmHg range which are certainly acceptable. Her CSF is also clearing. We will follow up on cultures from CSF sample on Ms. Rutherford, but yesterday they were negative and her biochemical assessment was unremarkable regarding protein and glucose. At this point, unfortunately she has been found to have left lower extremity deep venous thrombosis. She cannot be placed on anticoagulation and she would need an IVC filter. This would essentially be a shunt, an IVC filter, a tracheostomy, and a PEG tube would be required. I discussed the case at length with Dr. Garrison and at this point, we both agree that we should wait through the weekend to see what the family would like us to do. Certainly, internalization of her EVD to a shunt will result in no change necessarily in the immediate period of her neurologic state and if we were to take her for shunt placement tomorrow in the absence of IVC filter, I would hate for her to have any type of event on the table during that. We will await the family's decision on Monday, but there is no chance for a functional recovery for this patient. Job ID: [id number]
[2019-07-12] MEDS: hydrALAZINE 20 MG/ML VIAL SLOW IVP PRN (02:05)
[2019-07-12] MEDS: HumaLOG 300 UNITS/3 ML VIAL SC PRN ×2 (04:02→21:54)
[2019-07-12] MEDS: ceFAZolin 1 GM/D5W 1 GM in Premix Bag 1 BAG IVPB SCH ×4 (05:46→21:52)
[2019-07-12] MEDS: hydrALAZINE 25 MG TAB PO SCH ×4 (05:48→18:24)
[2019-07-12] MEDS: Insulin Glargine 25 UNITS in Pre-Filled Syringe 1 EACH SC SCH (08:58)
[2019-07-12] MEDS: Carvedilol 6.25 MG TAB PO SCH ×2 (08:58→17:30)
[2019-07-12] MEDS: Famotidine 20 MG TAB PER TUBE SCH ×2 (08:58→21:10)
--- NOTE | 2019-07-12 09:33 | CT ---
PRELIMINARY REPORT/[facility]/EMERGENCY AFTER HOURS PROCEDURE: Exam: Unenhanced CT brain. History: F/u thalamic hemorrhage, post-evac IVH . Comparison: July 11, 2019 Findings: Included paranasal sinuses are clear. Left frontal narcisa hole and craniotomy is present. V entriculostomy catheter is present left frontal approach and tip terminating superior aspect of the t hird ventricle. There is edema versus encephalomalacia the frontal lobe along the ventriculostomy ca theter. Appearance is unchanged. Left thalamic hemorrhagic infarct is present measuring 3.2 x 2.8 c m previously 3.3 x 2.8 cm. there is adjacent edema. Midline shift is present from left to right me asuring 6 mm, stable. There is persistent blood within dilated posterior and occipital horn of left lateral ventricle, stable. Remainder of ventricles are of normal size. Patient demonstrates. Baseline of small areas of hypodensity right periventricular deep white matte r due to prior small vessel ischemic disease. Impression: Stable CT brain. ELECTRONICALLY SIGNED BY: Benita Schmitt MD Jul 12, 2019 4:43:38 AM ADVERTISING TRAFFIC MANAGER This report is intended for review by the ordering physician only, in accordance of law. If you recei ve this report in error, please call [facility] at [phone]. FINAL REPORT CT BRAIN WITHOUT CONTRAST: Date: 07/12/2019 INDICATION: History of thalamic hemorrhage follow-up; history of evacuation of intraventricular hemorrhage. COMPARISON: Prior CT of the brain dated 07/11/2019 and 06/27/2019. FINDINGS: Since the comparison examination, the left frontal craniotomy with associated bur hole and ventriculo stomy catheter projecting to the third ventricle of the brain is unchanged. The vasogenic edema with small amount of intraparenchymal hemorrhage seen along the ventriculostomy catheter course is unchang ed. Small amount of subarachnoid hemorrhage overlying the left frontal lobe near the ventriculostomy catheter site is unchanged from the most recent comparison. The intraparenchymal hemorrhage centered within the left thalamus is stable to slightly smaller, now measuring 8.1 x 5.2 cm, where it previous ly measured 8.3 x 5.1 cm. The midline shift is roughly similar to slightly less from left to right me asuring 7.0 mm, previously measuring 7.9 mm. Slight asymmetric prominence of the left lateral ventric le, particularly in the temporal horn, appears stable. Mild chronic small vessel white matter ischemi c change is stable appearing. Mild vasogenic edema in the region of the anterior corpus callosum is s imilar appearing. Skull and extracranial soft tissues are unchanged. IMPRESSION: 1. Stable to slight interval decrease in size with intraparenchymal hemorrhage centered within the l eft thalamus. 2. Stable to slightly improved left to right midline shift. 3. Other stable findings as above. I agree with the preliminary report provided by [facility].
--- NOTE | 2019-07-12 09:38 | PRG ---
DATE OF SERVICE: 07/12/2019 Ms. Rutherford is now 17 days into her hospitalization. She remains a GCS 60 with eyes opening to pain, intubated, and withdraws. Her EVD remains functional and a head CT today demonstrates, since backing the drain out, still no evidence of ventriculomegaly and continued resolution in the large thalamic hemorrhage. Her EVD remains open at zero. We are awaiting decision from the family this Monday for either continued aggressive therapy versus withdrawal of care based on prior wishes conveyed to me from the patient's friend from personal discussions and my own opinion of zero chance for functional recovery. Thus Medical and Surgical team have recommended withdrawal of care. The family will let us know on Monday. Should they want to pursue continued care, she will need shunt, IVC filter, tracheostomy, and PEG tube placement and then disposition. Job ID: [id number]
--- NOTE | 2019-07-12 10:59 | PRG ---
DATE OF SERVICE: 07/12/2019 SERVICE: Pulmonary Medicine. INTERVAL HISTORY: The patient is doing poorly neurologically. She cannot provide any additional elements of the history, though there were no overnight events. There were no fevers or chills. PHYSICAL EXAMINATION: VITAL SIGNS: Afebrile, pulse 67, blood pressure 144/85, respirations 12, saturations 100% on 21% FiO2 and a PEEP of 5. GENERAL: The patient is intubated and sedated. HEENT: Normocephalic and atraumatic. Sclerae are white. Conjunctivae are pink. Oral mucosa is moist without lesions. LUNGS: Decent air entry. No prolonged expiratory phase or rhonchi appreciated. HEART: Normal rate, regular. ABDOMEN: Soft, nontender, nondistended. Bowel sounds are positive. MUSCULOSKELETAL: No cyanosis or clubbing. There is no pitting in the bilateral lower extremities. NEUROLOGIC: She demonstrates a pretty pronounced crossed extensor reflex. Upgoing Babinski is present bilaterally. With noxious stimuli to the left upper extremity, she has decorticate posturing. With noxious stimuli to the right upper extremity, she has decerebrate posturing. She closes her eyes to confrontation, has a good corneal reflex, spontaneously opens her eyes, but does not attend. She does not follow any commands. She is comfortably overbreathing the ventilator. IMAGING STUDIES: CT of brain demonstrates no interval change compared to yesterday. ASSESSMENT: 1. Acute respiratory failure secondary to inability to protect airway. 2. Intraparenchymal hemorrhage of the left thalamus with extension into the intraventricular space, status post craniotomy, external ventricular drain placement, postop day 17. 3. Hypertensive emergency. 4. Deep venous thrombosis. DISCUSSION AND PLAN: The patient's family is likely going to be transitioning over to comfort care as early as Monday provided that she does not make any significant neurologic improvement. It is my understanding that the family was planning on staying in [facility], but has opted to transition back to [place]. In the last 24 hours, we have had a tough time getting a hold of them. Hopefully on Monday, they will be available for discussion either in person or over the phone. Should they opt for more time, PEG, Trach, Shunt, and IVC filter will need to be considered. Critical Care will follow. Job ID: [id number] [facility]
--- NOTE | 2019-07-12 11:53 | PDOC.HOSPP ---
- Subjective Encounter Date: 07/12/19 Encounter Time: 09:30 Subjective: opens eyes to touch or verbal stimuli, does not follow no meningfull movement seen in extemity is on vent - Objective Vital Signs & Weight: Vital Signs (12 hours) Temp Pulse Resp BP 07/12/19 10:44 62 151/78 H 07/12/19 09:08 63 07/12/19 08:58 144/85 H 07/12/19 07:40 67 130/66 07/12/19 06:00 12 07/12/19 05:48 60 125/67 07/12/19 04:00 100.1 F H 13 07/12/19 03:21 60 07/12/19 02:05 61 166/90 H 07/12/19 02:00 10 L 07/12/19 01:12 61 157/79 H 07/12/19 00:00 99.2 F 18 Weight Admit Weight 138 lb Weight 138 lb 3.677 oz Most Recent Monitor Data Heart Rate from ECG 64 NIBP 156/85 NIBP BP-Mean 108 Respiration from ECG 16 SpO2 100 I&O: 07/11/19 07/12/19 07/13/19 06:59 06:59 06:59 Intake Total 3107 2753 Output Total 1477 1710 Balance 1630 1043 Result Diagrams: 07/10/19 04:00 07/10/19 04:00 Additional Labs: Accuchecks 07/12/19 07/11/19 07/11/19 03:37 21:40 16:16 POC Glucose 178 H 208 H 204 H Hospitalist ROS - Medication Medications: Active Medications Generic Name Dose Route Start Last Admin Trade Name Juniorq PRN Reason Stop Dose Admin Acetaminophen 650 mg 07/01/19 17:02 07/07/19 11:56 Tylenol Elixir PER TUBE 650 mg Q4H PRN Administration Headache/Fever or Pain Carvedilol 12.5 mg 07/10/19 17:00 07/12/19 08:58 Coreg PO 12.5 mg BID-WM MATTHIAS Administration Famotidine 20 mg 07/10/19 21:00 07/12/19 08:58 Pepcid PER TUBE 20 mg BID MATTHIAS Administration Hydralazine HCl 10 mg 06/25/19 19:24 07/12/19 02:05 Apresoline SLOW IVP 10 mg Q15MIN PRN Administration Sbp Greater Than 150 Hydralazine HCl 75 mg 07/04/19 12:00 07/12/19 05:48 Apresoline PO 75 mg Q6HR MATTHIAS Administration Levetiracetam 500 mg/ Device 100 mls @ 200 mls/hr 06/25/19 21:00 07/12/19 08: 58 IVPB 100 mls BID MATTHIAS Administration Nicardipine HCl 50 mg/ Sodium 250 mls @ 0 mls/hr 06/26/19 00:45 07/09/19 20: 45 Chloride IVPB 250 mls INF PRN Administration TO MAINTAIN SBP < 150 Protocol As Directed Insulin Glargine 25 units/ 0.25 mls @ 1 mls/hr 07/04/19 09:00 07/12/19 08:58 Miscellaneous Medication SC 0.25 mls QAM MATTHIAS Administration Cefazolin Sodium/Dextrose 1 gm 50 mls @ 100 mls/hr 07/10/19 14:00 07/12/19 05 :46 / Device IVPB 50 mls Q8HR MATTHIAS Administration Insulin Human Lispro 0 units 06/26/19 12:14 07/12/19 04:02 Humalog SC 2 unit .MODERATE SLIDING SC PRN Administration Moderate Correctional Scale Labetalol HCl 10 mg 06/25/19 19:08 06/30/19 07:16 Normodyne SLOW IVP 10 mg Q10MIN PRN Administration SBP > 150 or DBP > 90 Potassium Chloride 40 meq 07/02/19 09:46 07/08/19 05:47 Klor-Con PER TUBE 40 meq ASDIR PRN Administration FOR SERUM K+ 2.5-3.5 Sodium Chloride 10 ml 06/25/19 19:08 06/28/19 02:32 Flush - Normal Saline IVF 10 ml PRN PRN Administration Saline Flush - Exam General Appearance: ill appearing Eye: anicteric sclera ENT: no oropharyngeal lesions, moist mucosa Neck: supple, no JVD Heart: RRR, no murmur Respiratory: no wheezes, no rales Gastrointestinal: soft, non-tender, non-distended, normal bowel sounds Extremities: 1+ LE edema Neurological - other findings: upgoing plantars b/l Hosp A/P (1) Hypertensive intracerebral hemorrhage Code(s): I61.9 - NONTRAUMATIC INTRACEREBRAL HEMORRHAGE, UNSPECIFIED Status: Acute (2) Acute encephalopathy Code(s): G93.40 - ENCEPHALOPATHY, UNSPECIFIED Status: Acute (3) Acute respiratory failure with hypoxia Code(s): J96.01 - ACUTE RESPIRATORY FAILURE WITH HYPOXIA Status: Acute (4) Hypertensive emergency Code(s): I16.1 - HYPERTENSIVE EMERGENCY Status: Resolved (5) Left leg DVT Code(s): I82.402 - ACUTE EMBOLISM AND THOMBOS UNSP DEEP VEINS OF L LOW EXTREM Status: Acute Qualifiers: Affected thrombotic vein of extremity: femoral Chronicity: acute Qualified Code(s): I82.412 - Acute embolism and thrombosis of left femoral vein (6) DM type 2 (diabetes mellitus, type 2) Status: Chronic Qualifiers: Diabetes mellitus local intermodal truck driver insulin use: without local intermodal truck driver use - Plan pt is 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
[2019-07-13] MEDS: Acetaminophen 650 MG/20.3 ML UDCUP PER TUBE PRN ×2 (00:14→21:16)
[2019-07-13] MEDS: hydrALAZINE 25 MG TAB PO SCH ×4 (00:14→18:25)
[2019-07-13] MEDS: HumaLOG 300 UNITS/3 ML VIAL SC PRN ×3 (03:53→21:35)
[2019-07-13 05:01] LABS: Anion Gap 12 mmol/L (10-20); BUN (Urea Nitrogen) 20 mg/dL (7.0-18.7); Calc. Creatinine Clearance 97 mL/min (70-130); Calcium 8.2 mg/dL (7.8-10.44); Carbon Dioxide 25 mmol/L (22-29); Chloride 104 mmol/L (98-107); Estimated GFR-MDRD 90; Glucose 158 mg/dL (70-105); Potassium 3.7 mmol/L (3.5-5.1); Sodium 137 mmol/L (136-145)
[2019-07-13] MEDS: ceFAZolin 1 GM/D5W 1 GM in Premix Bag 1 BAG IVPB SCH ×3 (05:42→21:34)
[2019-07-13 05:51] LABS: Band 7 % (5-11); Hemoglobin 10.1 g/dL (12.0-16.0); Large Platelets SLIGHT; Lymphocytes 13 % (21-51); MDiff Complete? YES; Mean Corpuscular HGB CONC 33.2 g/dL (32.0-36.0); Mean Corpuscular Volume 87.5 fL (78.0-98.0); Mean Platelet Volume 13.3 fL (7.4-10.4); Monocytes 5 % (0-10); Neutrophil 75 % (42-75); Platelet Count 202 thou/uL (130-400); Platelet Morphology Comment Appears Adequate; RBC Distribution Width 13.5 % (11.5-14.5); White Blood Cell (WBC) Count 14.3 thou/uL (4.8-10.8)
[2019-07-13] MEDS ORDERED: hydrALAZINE 25 MG TAB PO SCH (06:45)
--- NOTE | 2019-07-13 09:14 | PRG ---
DATE OF SERVICE: 07/13/2019 Ms. Rutherford is on the 18th day of her hospital stay. She is status post intraventricular hemorrhage with evacuation by Dr. Barroso and EVD placement. The last four days, unfortunately, the EVD has had significant difficulties with low output and then most recently the drain catheter itself fractured. This morning, I trimmed the ventricular drain catheter and then re-hooked it up to the Hogan drain, but no drainage was occurring. My concern is that she had enough output through this broken catheter the last 24-36 hours that perhaps we reached a low-pressure stay. The patient at bedside has minimal interaction. She blinks her eyes but does not follow commands or move upper or lower extremities other than slight movement. We are awaiting family's preferences on direction of care, whether that moves toward more comfort care setting or toward permanent shunt placement and with trach and PEG placement likely coming Monday. For now though, there is no change in Neurosurgery's plan, we will continue to follow her status, keep her comfortable. Job ID: [id number]
[2019-07-13] MEDS: Famotidine 20 MG TAB PER TUBE SCH ×2 (09:18→21:16)
[2019-07-13] MEDS: Carvedilol 6.25 MG TAB PO SCH ×2 (09:18→17:16)
[2019-07-13] MEDS: Insulin Glargine 25 UNITS in Pre-Filled Syringe 1 EACH SC SCH (09:19)
--- NOTE | 2019-07-13 11:58 | PDOC.HOSPP ---
- Subjective Encounter Date: 07/13/19 Encounter Time: 10:15 Subjective: opens eyes, blinks but does not follow or move extremities on vent, has evd tube changed this am - Objective Vital Signs & Weight: Vital Signs (12 hours) Temp Pulse Resp BP 07/13/19 11:16 59 L 147/84 H 07/13/19 09:18 156/81 H 07/13/19 07:24 57 L 163/81 H 07/13/19 06:46 60 141/83 H 07/13/19 06:00 12 07/13/19 04:00 99.2 F 10 L 07/13/19 03:32 60 07/13/19 02:00 99.7 F H 15 07/13/19 01:00 100.8 F H 07/13/19 00:14 65 138/76 07/13/19 00:00 101.5 F H 11 L Weight Admit Weight 138 lb Weight 137 lb 5.568 oz Most Recent Monitor Data Heart Rate from ECG 57 NIBP 143/75 NIBP BP-Mean 97 Respiration from ECG 14 SpO2 100 I&O: 07/12/19 07/13/19 07/14/19 06:59 06:59 06:59 Intake Total 2753 2022 30 Output Total 1710 1463 50 Balance 1043 559 -20 Result Diagrams: 07/13/19 03:47 07/13/19 03:47 Additional Labs: Accuchecks 07/13/19 07/12/19 07/12/19 03:42 21:55 17:47 POC Glucose 166 H 158 H 148 H 07/12/19 13:22 POC Glucose 142 H Hospitalist ROS - Medication Medications: Active Medications Generic Name Dose Route Start Last Admin Trade Name Freq PRN Reason Stop Dose Admin Acetaminophen 650 mg 07/01/19 17:02 07/13/19 00:14 Tylenol Elixir PER TUBE 650 mg Q4H PRN Administration Headache/Fever or Pain Carvedilol 12.5 mg 07/10/19 17:00 07/13/19 09:18 Coreg PO 12.5 mg BID-WM MATTHIAS Administration Famotidine 20 mg 07/10/19 21:00 07/13/19 09:18 Pepcid PER TUBE 20 mg BID MATTHIAS Administration Hydralazine HCl 10 mg 06/25/19 19:24 07/12/19 02:05 Apresoline SLOW IVP 10 mg Q15MIN PRN Administration Sbp Greater Than 150 Levetiracetam 500 mg/ Device 100 mls @ 200 mls/hr 06/25/19 21:00 07/13/19 09: 18 IVPB 100 mls BID MATTHIAS Administration Nicardipine HCl 50 mg/ Sodium 250 mls @ 0 mls/hr 06/26/19 00:45 07/09/19 20: 45 Chloride IVPB 250 mls INF PRN Administration TO MAINTAIN SBP < 150 Protocol As Directed Insulin Glargine 25 units/ 0.25 mls @ 1 mls/hr 07/04/19 09:00 07/13/19 09:19 Miscellaneous Medication SC 0.25 mls QAM MATTHIAS Administration Cefazolin Sodium/Dextrose 1 gm 50 mls @ 100 mls/hr 07/10/19 14:00 07/13/19 05 :42 / Device IVPB 50 mls Q8HR MATTHIAS Administration Insulin Human Lispro 0 units 06/26/19 12:14 07/13/19 03:53 Humalog SC 2 unit .MODERATE SLIDING SC PRN Administration Moderate Correctional Scale Labetalol HCl 10 mg 06/25/19 19:08 06/30/19 07:16 Normodyne SLOW IVP 10 mg Q10MIN PRN Administration SBP > 150 or DBP > 90 Potassium Chloride 40 meq 07/02/19 09:46 07/08/19 05:47 Klor-Con PER TUBE 40 meq ASDIR PRN Administration FOR SERUM K+ 2.5-3.5 Sodium Chloride 10 ml 06/25/19 19:08 06/28/19 02:32 Flush - Normal Saline IVF 10 ml PRN PRN Administration Saline Flush - Exam General Appearance: ill appearing Eye: PERRL, anicteric sclera ENT: no oropharyngeal lesions, moist mucosa Neck: supple, no JVD Heart: RRR, no murmur Respiratory: no wheezes, no rales Gastrointestinal: soft, non-tender, non-distended, normal bowel sounds Extremities: no cyanosis, no edema Neurological - other findings: not oriented, does not move any extremity, b/l upgoing plantars Hosp A/P (1) Hypertensive intracerebral hemorrhage Code(s): I61.9 - NONTRAUMATIC INTRACEREBRAL HEMORRHAGE, UNSPECIFIED Status: Acute (2) Acute encephalopathy Code(s): G93.40 - ENCEPHALOPATHY, UNSPECIFIED Status: Acute (3) Acute respiratory failure with hypoxia Code(s): J96.01 - ACUTE RESPIRATORY FAILURE WITH HYPOXIA Status: Acute (4) Hypertensive emergency Code(s): I16.1 - HYPERTENSIVE EMERGENCY Status: Resolved (5) Left leg DVT Code(s): I82.402 - ACUTE EMBOLISM AND THOMBOS UNSP DEEP VEINS OF L LOW EXTREM Status: Acute Qualifiers: Affected thrombotic vein of extremity: femoral Chronicity: acute Qualified Code(s): I82.412 - Acute embolism and thrombosis of left femoral vein (6) DM type 2 (diabetes mellitus, type 2) Status: Chronic Qualifiers: Diabetes mellitus group home insulin use: without group home use - Plan pt is 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 No new changes this am
--- NOTE | 2019-07-13 15:35 | PRG ---
DATE OF SERVICE: 07/13/2019 SUBJECTIVE: Ms. Rutherford is not improved. OBJECTIVE: VITAL SIGNS: She has low-grade temperature, heart rates in the 60s, blood pressure 137/74, respiratory rate in the 20s. HEENT: She opens her eyes. She appears to have intermittent myoclonic jerks. LUNGS: Clear. HEART: Regular rhythm. ABDOMEN: Soft. EXTREMITIES: Without edema. LABORATORY DATA: White count 14.3, hemoglobin 10.1, platelets 202. Electrolytes are normal. BUN 20, creatinine 0.69. PH 7.55, CO2 of 25, PO2 of 94. Nurses met with the family, and the family says they have decided they want to withdraw care on Monday. We will continue with supportive care. Family has made her do not resuscitate patient. Critical care time is 35 minutes. Job ID: [id number] MTDD
[2019-07-13] MEDS ORDERED: Scopolamine 1.5 mg/72 hour Patch TOP SCH (16:00)
[2019-07-14] MEDS: hydrALAZINE 25 MG TAB PO SCH ×4 (00:01→17:37)
[2019-07-14] MEDS: hydrALAZINE 20 MG/ML VIAL SLOW IVP PRN ×3 (03:14→17:49)
[2019-07-14] MEDS: HumaLOG 300 UNITS/3 ML VIAL SC PRN ×2 (03:57→14:40)
[2019-07-14] MEDS: Acetaminophen 650 MG/20.3 ML UDCUP PER TUBE PRN ×2 (04:16→20:07)
[2019-07-14 04:50] LABS: Anion Gap 13 mmol/L (10-20); BUN (Urea Nitrogen) 17 mg/dL (7.0-18.7); Calc. Creatinine Clearance 105 mL/min (70-130); Calcium 8.3 mg/dL (7.8-10.44); Carbon Dioxide 24 mmol/L (22-29); Chloride 102 mmol/L (98-107); Estimated GFR-MDRD Greater than 90; Glucose 176 mg/dL (70-105); Potassium 4.1 mmol/L (3.5-5.1); Sodium 135 mmol/L (136-145)
[2019-07-14 04:58] LABS: Band 12 % (5-11); Eosinophils 2 % (0-10); Hemoglobin 10.5 g/dL (12.0-16.0); Large Platelets SLIGHT; Lymphocytes 7 % (21-51); MDiff Complete? YES; Mean Corpuscular HGB CONC 31.6 g/dL (32.0-36.0); Mean Corpuscular Hemoglobin 27.6 pg (27.0-31.0); Mean Corpuscular Volume 87.3 fL (78.0-98.0); Monocytes 5 % (0-10); Neutrophil 74 % (42-75); Platelet Count 210 thou/uL (130-400); Platelet Morphology Comment Appears Adequate; RBC Distribution Width 13.6 % (11.5-14.5); Red Blood Cell (RBC) Count 3.82 mill/uL (4.20-5.40); White Blood Cell (WBC) Count 15.7 thou/uL (4.8-10.8)
[2019-07-14] MEDS: ceFAZolin 1 GM/D5W 1 GM in Premix Bag 1 BAG IVPB SCH ×3 (05:49→22:44)
[2019-07-14] MEDS: Carvedilol 6.25 MG TAB PO SCH ×3 (08:55→16:44)
[2019-07-14] MEDS: Famotidine 20 MG TAB PER TUBE SCH ×2 (08:55→21:24)
[2019-07-14] MEDS: Insulin Glargine 25 UNITS in Pre-Filled Syringe 1 EACH SC SCH (08:57)
--- NOTE | 2019-07-14 09:09 | PRG ---
DATE OF SERVICE: 07/14/2019 Ms. Rutherford is on the day of her hospital stay for intraventricular hemorrhage and altered mental status, status post decompression with Dr. Barroso with EVD placement. Unfortunately, over the last 24 hours, her EVD has continued to not put out any drainage. It appears that the ventricular catheter itself is casting proteinaceous fluid that I am unable to flush. Discussed with Dr. Tony. Our plan will be to leave in place and continue to follow her clinical status as we await final guidance from family after ethics committee meeting tomorrow. No additional intervention at this time. Job ID: [id number]
--- NOTE | 2019-07-14 09:50 | PRG ---
DATE OF SERVICE: 07/14/2019 I reviewed all the notes as dictated by Rick Madrid, both today and yesterday and agree with his assessment. There has essentially been no change in Ms. Rutherford's neurologic status. We have been making adjustments to her ventriculostomy both yesterday and today due to intermittent function. Yesterday, the catheter had a defect in the ventricular portion and it was cut shorter and readjusted. Today, it intermittently flushes, but appears to be full of a proteinaceous fluid. We will continue to await final word from ethics committee and the plan toward ultimate level of care. My plan is to leave the EVD in place as it is now. Job ID: [id number]
--- NOTE | 2019-07-14 12:00 | PRG ---
DATE OF SERVICE: 07/14/2019 Ms. Rutherford is clinically unchanged. OBJECTIVE: VITAL SIGNS: Heart rate in the 60s, blood pressure 135/70, respiratory rates in the 20s. LUNGS: Unchanged. HEART: Unchanged. ABDOMEN: Unchanged. LABORATORY DATA: White count 15.7, hemoglobin 10.5, platelets 210. Electrolytes are unremarkable. IMPRESSION: 1. Status post placement of an external ventricular drain after central nervous system hemorrhage. 2. I am told family wants to withdraw support tomorrow. Job ID: [id number]
--- NOTE | 2019-07-14 12:36 | PDOC.HOSPP ---
- Subjective Encounter Date: 07/14/19 Encounter Time: 10:45 Subjective: awakens easily, seen moving her hand and forearm left side, does not move her legs. she does not follow verbal stimuli or follow the examiner with her eyes - Objective Vital Signs & Weight: Vital Signs (12 hours) Temp Pulse Resp BP 07/14/19 11:04 65 135/70 07/14/19 08:55 115/60 07/14/19 08:00 99.9 F H 07/14/19 07:28 80 134/74 07/14/19 06:00 101.8 F H 07/14/19 05:49 70 129/57 L 07/14/19 05:00 102.8 F H 07/14/19 04:16 70 187/93 H 07/14/19 04:00 103.1 F H 15 07/14/19 03:26 70 07/14/19 03:14 55 L 160/75 H 07/14/19 01:59 11 L Weight Admit Weight 138 lb Weight 141 lb 8.588 oz Most Recent Monitor Data Heart Rate from ECG 65 NIBP 135/70 NIBP BP-Mean 91 Respiration from ECG 16 SpO2 100 I&O: 07/13/19 07/14/19 07/15/19 06:59 06:59 06:59 Intake Total 2 2145 160 Output Total 1463 1355 270 Balance 559 790 -110 Result Diagrams: 07/14/19 03:50 07/14/19 03:50 Additional Labs: Accuchecks 07/14/19 07/13/19 07/13/19 03:53 21:37 18:33 POC Glucose 183 H 152 H 147 H Hospitalist ROS - Medication Medications: Active Medications Generic Name Dose Route Start Last Admin Trade Name Freq PRN Reason Stop Dose Admin Acetaminophen 650 mg 07/01/19 17:02 07/14/19 04:16 Tylenol Elixir PER TUBE 650 mg Q4H PRN Administration Headache/Fever or Pain Carvedilol 12.5 mg 07/10/19 17:00 07/14/19 08:55 Coreg PO 12.5 mg BID-WM MATTHIAS Administration Famotidine 20 mg 07/10/19 21:00 07/14/19 08:55 Pepcid PER TUBE 20 mg BID MATTHIAS Administration Hydralazine HCl 10 mg 06/25/19 19:24 07/14/19 04:16 Apresoline SLOW IVP 10 mg Q15MIN PRN Administration Sbp Greater Than 150 Hydralazine HCl 75 mg 07/13/19 12:00 07/14/19 05:49 Apresoline PO 75 mg Q6HR MATTHIAS Administration Levetiracetam 500 mg/ Device 100 mls @ 200 mls/hr 06/25/19 21:00 07/14/19 08: 43 IVPB 100 mls BID MATTHIAS Administration Nicardipine HCl 50 mg/ Sodium 250 mls @ 0 mls/hr 06/26/19 00:45 07/09/19 20: 45 Chloride IVPB 250 mls INF PRN Administration TO MAINTAIN SBP < 150 Protocol As Directed Insulin Glargine 25 units/ 0.25 mls @ 1 mls/hr 07/04/19 09:00 07/14/19 08:57 Miscellaneous Medication SC 0.25 mls QAM MATTHIAS Administration Cefazolin Sodium/Dextrose 1 gm 50 mls @ 100 mls/hr 07/10/19 14:00 07/14/19 05 :49 / Device IVPB 50 mls Q8HR MATTHIAS Administration Insulin Human Lispro 0 units 06/26/19 12:14 07/14/19 03:57 Humalog SC 2 unit .MODERATE SLIDING SC PRN Administration Moderate Correctional Scale Labetalol HCl 10 mg 06/25/19 19:08 06/30/19 07:16 Normodyne SLOW IVP 10 mg Q10MIN PRN Administration SBP > 150 or DBP > 90 Potassium Chloride 40 meq 07/02/19 09:46 07/08/19 05:47 Klor-Con PER TUBE 40 meq ASDIR PRN Administration FOR SERUM K+ 2.5-3.5 Scopolamine 1.5 mg 07/13/19 16:00 07/13/19 17:05 Transderm Scop TOP 1.5 mg Q3D MATTHIAS Administration Sodium Chloride 10 ml 06/25/19 19:08 06/28/19 02:32 Flush - Normal Saline IVF 10 ml PRN PRN Administration Saline Flush - Exam General Appearance: ill appearing Eye: PERRL, anicteric sclera ENT: no oropharyngeal lesions, moist mucosa Neck: supple, no JVD Heart: RRR, no murmur Respiratory: no wheezes, no rales Gastrointestinal: soft, non-tender, non-distended, normal bowel sounds Extremities: no cyanosis, no edema Neurological: no new deficit Hosp A/P (1) Hypertensive intracerebral hemorrhage Code(s): I61.9 - NONTRAUMATIC INTRACEREBRAL HEMORRHAGE, UNSPECIFIED Status: Acute (2) Acute encephalopathy Code(s): G93.40 - ENCEPHALOPATHY, UNSPECIFIED Status: Acute (3) Acute respiratory failure with hypoxia Code(s): J96.01 - ACUTE RESPIRATORY FAILURE WITH HYPOXIA Status: Acute (4) Hypertensive emergency Code(s): I16.1 - HYPERTENSIVE EMERGENCY Status: Resolved (5) Left leg DVT Code(s): I82.402 - ACUTE EMBOLISM AND THOMBOS UNSP DEEP VEINS OF L LOW EXTREM Status: Acute Qualifiers: Affected thrombotic vein of extremity: femoral Chronicity: acute Qualified Code(s): I82.412 - Acute embolism and thrombosis of left femoral vein (6) DM type 2 (diabetes mellitus, type 2) Status: Chronic 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 Might remain in vegetative state if she goes for extubation?
[2019-07-14] MEDS: niCARdipine 50 MG in Sodium Chloride 0.9% 250 ML 230 ML IVPB PRN ×2 (18:37→23:40)
[2019-07-15] MEDS: hydrALAZINE 25 MG TAB PO SCH ×3 (00:42→13:08)
[2019-07-15] MEDS: niCARdipine 50 MG in Sodium Chloride 0.9% 250 ML 230 ML IVPB PRN (03:49)
[2019-07-15 04:22] LABS: Anion Gap 15 mmol/L (10-20); BUN (Urea Nitrogen) 20 mg/dL (7.0-18.7); Calc. Creatinine Clearance 97 mL/min (70-130); Calcium 8.6 mg/dL (7.8-10.44); Carbon Dioxide 24 mmol/L (22-29); Chloride 102 mmol/L (98-107); Estimated GFR-MDRD 89; Glucose 199 mg/dL (70-105); Potassium 3.1 mmol/L (3.5-5.1); Sodium 138 mmol/L (136-145)
[2019-07-15 04:34] LABS: Band 40 % (5-11); Hemoglobin 11.9 g/dL (12.0-16.0); Large Platelets SLIGHT; Lymphocytes 8 % (21-51); MDiff Complete? YES; Mean Corpuscular HGB CONC 32.7 g/dL (32.0-36.0); Mean Corpuscular Hemoglobin 28.2 pg (27.0-31.0); Mean Corpuscular Volume 86.2 fL (78.0-98.0); Mean Platelet Volume 12.7 fL (7.4-10.4); Monocytes 2 % (0-10); Neutrophil 50 % (42-75); Platelet Count 244 thou/uL (130-400); Platelet Morphology Comment Appears Adequate; RBC Distribution Width 13.6 % (11.5-14.5); Red Blood Cell (RBC) Count 4.23 mill/uL (4.20-5.40); White Blood Cell (WBC) Count 13.3 thou/uL (4.8-10.8)
[2019-07-15] MEDS: HumaLOG 300 UNITS/3 ML VIAL SC PRN ×2 (05:05→18:21)
[2019-07-15 06:11] VITALS: BMI 24.0
[2019-07-15] MEDS: ceFAZolin 1 GM/D5W 1 GM in Premix Bag 1 BAG IVPB SCH ×2 (07:27→16:07)
[2019-07-15] MEDS: Famotidine 20 MG TAB PER TUBE SCH ×2 (07:45→21:22)
[2019-07-15] MEDS: Carvedilol 6.25 MG TAB PO SCH (07:46)
[2019-07-15] MEDS: Insulin Glargine 25 UNITS in Pre-Filled Syringe 1 EACH SC SCH (08:40)
--- NOTE | 2019-07-15 09:59 | PRG ---
DATE OF SERVICE: 07/15/2019 Ms. Rutherford is hospital day #20, having sustained a devastating left thalamic hemorrhage. Over the weekend, our nursing staff discussed possible withdrawal of care with the patient's son and ex- together. The son made a decision that he would like to withdraw care on Monday. I attempted to get in contact with them several times and was finally successful, was able to talk to both the ex- and the patient's son. They wish for withdrawal of care, transition to comfort care measures. The patient's son in his own words stated "it is time to let her go and I would like you to withdraw care." We will therefore begin arrangement for this. I have discussed in great detail with the nursing staff. Dr. Barroso has also been updated in agreement with this plan, as again, the patient has made no recovery since she has been hospitalized. We will place the order and proceed as the family wishes. We will also keep them updated after the patient has . Job ID: [id number]
--- NOTE | 2019-07-15 10:54 | PRG ---
DATE OF SERVICE: 07/15/2019 SERVICE: Pulmonary Medicine. INTERVAL HISTORY: The patient is doing poorly from a neurologic standpoint. It appears that she is completing her herniation. She lost her brainstem reflexes for the most part. She is also no longer breathing over the ventilator. This happened early this morning. She cannot provide any additional elements of the history. Otherwise, there has been no interval change to her condition. PHYSICAL EXAMINATION: VITAL SIGNS: Afebrile, currently with a T-max of 103.1, pulse 53, blood pressure 117/66, respirations 14, and saturation 95% on 40% FiO2 and PEEP of 5. GENERAL: The patient is intubated. She is on no sedation since being here. HEENT: Normocephalic. EVD is in place. Sclerae are white. Conjunctivae are pink. Oral mucosa is moist without lesions. LUNGS: Decent air entry. Rhonchi are present. No prolonged expiratory phase or wheezing is appreciated. HEART: Normal rate and regular. ABDOMEN: Soft, nontender, and nondistended. Bowel sounds are positive. MUSCULOSKELETAL: No cyanosis or clubbing. There is no pitting today. NEUROLOGIC: One pupil is fixed and dilated, the other one is sluggishly reactive. She is not coughing or overbreathing the ventilator. She no longer demonstrates a gag. Doll's eyes are abnormal, and she no longer closes her eyes with confrontation. LABORATORY DATA: WBC 13.3, hemoglobin 11.9, and platelets 244,000. Band count is spiking to 40%. Creatinine 0.7. Basic metabolic profile is otherwise unremarkable. Potassium 3.1. E species was previously growing in the urine. ASSESSMENT: 1. Acute hypoxic respiratory failure. 2. Intraparenchymal hemorrhage of the left thalamus with extension into the intraventricular space, status post craniotomy and external ventricular drain placement, postop day 20. 3. Hypertensive emergency. 4. Deep venous thrombosis. DISCUSSION AND PLAN: The patient appears to have completed her herniation. She no longer has any drive to breathe. All of her brainstem reflexes have suddenly gone away. She is also having increasing band count, and having high-grade fevers. I am going to do a skelton culture and empirically put her on some antibiotics. It is my understanding the family is transitioning over to comfort care today, which I think is perfectly reasonable. That being said, we will continue to be aggressive in her care, particularly in the event, the family chooses organ donation as it is my understanding she is listed as an organ donor on her license. Job ID: [id number] MTDD
[2019-07-15] MEDS ORDERED: methylPREDNISolone Sod Succ 2 GM in Sodium Chloride 0.9% 100 ML IVPB SCH (11:30)
[2019-07-15] MEDS ORDERED: Vasopressin 40 UNIT, Admixture Fee 1 EACH in Sodium Chloride 0.9% 100 ML IV SCH ×2 (11:30→16:30)
[2019-07-15] MEDS ORDERED: Sodium Chloride 0.9% 1,000 ML IV SCH (11:30)
[2019-07-15] MEDS: Norepinephrine 8 MG/0.9% NS 250 ML IVPB SCH ×2 (12:24→21:34)
[2019-07-15] MEDS: Levothyroxine Sodium 400 MCG in Sodium Chloride 0.9% 100 ML IVPB SCH ×2 (12:30→21:22)
--- NOTE | 2019-07-15 12:31 | PDOC.PALPN ---
Palliative Progress Note - Subjective Patient non responsive, with neurological decline. Remains with mechanical ventilation. Grey Tender and friend Joann at bedside. Son is in communication and receives support from his father, patient ex-. - Objective Vital Signs: Vital Signs - Most Recent Temp Pulse Resp BP Pulse Ox 99.2 F 53 L 24 H 136/74 97 07/15/19 07:40 07/15/19 10:05 07/15/19 08:00 07/15/19 07:46 07/14/19 20:00 - Physical Exam Constitutional: encephalitic Deviation from normal: Right pupil dialated and nonreactive, left non reactive Respiratory: clear to auscultation bilateral, diminished lung sound Deviation from normal: Mechanical ventilation, not breathing over vent Cardiovascular: RRR, diminished peripheral pulses Gastrointestinal: incontinent Genitourinary: loza catheter Musculoskeletal: no clubbing, no edema, muscle wasting Deviation from normal: flacid Deviation from normal: No purposeful movement, not responsive to stimuli Skin: no lesions, no rash Deviation from normal: non responsive - Assessment (1) Palliative care encounter Code(s): Z51.5 - ENCOUNTER FOR PALLIATIVE CARE Current Visit: Yes Status: Acute (2) Acute encephalopathy Code(s): G93.40 - ENCEPHALOPATHY, UNSPECIFIED Current Visit: Yes Status: Acute (3) Acute respiratory failure with hypoxia Code(s): J96.01 - ACUTE RESPIRATORY FAILURE WITH HYPOXIA Current Visit: Yes Status: Acute (4) Diabetes type 2, uncontrolled Code(s): E11.65 - TYPE 2 DIABETES MELLITUS WITH HYPERGLYCEMIA Current Visit: Yes Status: Chronic (5) Hypertensive intracerebral hemorrhage Code(s): I61.9 - NONTRAUMATIC INTRACEREBRAL HEMORRHAGE, UNSPECIFIED Current Visit: Yes Status: Acute (6) Noncompliance with medication regimen Code(s): Z91.14 - PATIENT'S OTHER NONCOMPLIANCE WITH MEDICATION REGIMEN Current Visit: Yes Status: Chronic - Plan Plan: Joann and at bedside. Communication with son and ex-. Patient will go for a cerebral blood flow to determine brain function. Patient son who has support from his father, appears to be ready to withdraw care and is interested in possible organ donation. STA aware. Friends who knew patient well have encouraged patient son as that not only would Ms Rutherford not desire to live without the chance for meaning full recovery but that she believed in organ donation. Ms Rutherfords friends, especially Joann continue to be in contact with patient son and supportive of him. Spiritual care also involved. Communicated with Dr Restrepo, Pedro Luis Chao [50] minutes spent on this encounter with >50% of the time in counseling and coordination of care. - ROS Non Response: due to endotracheal tube, due to mental status
[2019-07-15 13:18] LABS: Actual Bicarbonate (HCO3a) 23.3 mEq/L (22-28); Base Excess (BEa) -0.7 mEq/L (-2.0 to +3.0); CO2 Tension 36.4 mmHg (35.0-45.0); Carboxyhemoglobin (COHb) 0.9 gm% (0.0-3.0); Hemoglobin (Hb) 11.4 g/dL (12.0-16.0); O2 Tension (PaO2) 75.8 mmHg (80.0-100.0); Potassium - ABG Lab 4.35 mmol/L (3.70-5.30); pH, Arterial 7.43 (7.35-7.45)
[2019-07-15 13:25] LABS: Puncture Site RRAD
[2019-07-15] MEDS ORDERED: Meropenem 1 GM in Sodium Chloride 0.9% 100 ML IVPB SCH (14:00)
[2019-07-15] MEDS: MEROPENEM 1 GM/50 ML 1 GM in Premix Bag 1 BAG IVPB SCH ×2 (14:25→21:23)
--- NOTE | 2019-07-15 15:06 | NM ---
Nuclear medicine brain cerebral flow study INDICATION: Change in neuro status Radial pharmaceutical: 20.7 mCi of technetium 99m Ceretec IV was utilized. Sequential images were obt ained following IV administration of the radiopharmaceutical over 48 frames with delayed anterior, right lateral and left lateral imaging. FINDINGS: During the angiographic phase, there is demonstration of the carotid and intracranial vascu lature with a trident sign seen overlying the central aspect of the skull indicating flow within the medial and anterior cerebral arteries. Subsequent delayed phase images demonstrate activity withi n the supratentorial and infratentorial space though slightly less prominent uptake than expected when comparing it to the blood pool activity. IMPRESSION: Nuclear medicine brain cerebral flow study demonstrates flow and activity within the intr acranial space that does appear slightly diminished to the background blood pool suspicious for diminished cerebral blood flow but is not consistent with brain . Follow-up CT of the brain may be helpful for further evaluation.
--- NOTE | 2019-07-15 15:21 | PDOC.HOSPP ---
- Subjective Encounter Date: 07/15/19 Encounter Time: 11:15 non-verbal Subjective: Completely obtunded, no eye blinking or any movement seen in extremities. On vent - Objective Vital Signs & Weight: Vital Signs (12 hours) Temp Pulse Resp BP 07/15/19 14:24 47 L 07/15/19 13:08 53 L 07/15/19 12:00 98.8 F 15 07/15/19 10:05 53 L 07/15/19 10:00 15 07/15/19 08:00 24 H 07/15/19 07:46 136/74 07/15/19 07:40 99.2 F 07/15/19 06:59 82 07/15/19 06:00 26 H 07/15/19 05:05 80 133/68 07/15/19 04:50 80 07/15/19 04:00 99.7 F H 21 H Weight Admit Weight 138 lb Weight 139 lb 12.369 oz Most Recent Monitor Data Heart Rate from ECG 49 NIBP 99/61 NIBP BP-Mean 73 Respiration from ECG 15 SpO2 100 I&O: 07/14/19 07/15/19 07/16/19 06:59 06:59 06:59 Intake Total 2145 1974 260 Output Total 1355 2185 395 Balance 790 211 -302 Result Diagrams: 07/15/19 03:32 07/15/19 03:32 Additional Labs: Accuchecks 07/15/19 07/15/19 07/14/19 13:23 04:37 23:07 POC Glucose 187 H 219 H 134 H 07/14/19 18:28 POC Glucose 121 H Hospitalist ROS - Medication Medications: Active Medications Generic Name Dose Route Start Last Admin Trade Name Freq PRN Reason Stop Dose Admin Acetaminophen 650 mg 07/01/19 17:02 07/14/19 20:07 Tylenol Elixir PER TUBE 650 mg Q4H PRN Administration Headache/Fever or Pain Carvedilol 12.5 mg 07/10/19 17:00 07/15/19 07:46 Coreg PO 12.5 mg BID-WM MATTHIAS Administration Famotidine 20 mg 07/10/19 21:00 07/15/19 07:45 Pepcid PER TUBE 20 mg BID MATTHIAS Administration Hydralazine HCl 10 mg 06/25/19 19:24 07/14/19 17:49 Apresoline SLOW IVP 10 mg Q15MIN PRN Administration Sbp Greater Than 150 Hydralazine HCl 75 mg 07/13/19 12:00 07/15/19 13:08 Apresoline PO Not Given Q6HR MATTHIAS Levetiracetam 500 mg/ Device 100 mls @ 200 mls/hr 06/25/19 21:00 07/15/19 08: 40 IVPB 100 mls BID MATTHIAS Administration Nicardipine HCl 50 mg/ Sodium 250 mls @ 0 mls/hr 06/26/19 00:45 07/15/19 03: 49 Chloride IVPB 250 mls INF PRN Administration TO MAINTAIN SBP < 150 Protocol As Directed Insulin Glargine 25 units/ 0.25 mls @ 1 mls/hr 07/04/19 09:00 07/15/19 08:40 Miscellaneous Medication SC 0.25 mls QAM MATTHIAS Administration Cefazolin Sodium/Dextrose 1 gm 50 mls @ 100 mls/hr 07/10/19 14:00 07/15/19 07 :27 / Device IVPB 50 mls Q8HR MATTHIAS Administration Levothyroxine Sodium 400 mcg/ 100 mls @ 2.5 mls/hr 07/15/19 11:30 07/15/19 12 :30 Sodium Chloride IVPB 100 mls INF MATTHIAS Administration Norepinephrine Bitartrate 250 mls @ 0 mls/hr 07/15/19 11:29 07/15/19 12:24 Levophed IVPB 250 mls INF MATTHIAS Administration Protocol Titrate Vancomycin HCl 2 gm/ Sodium 500 mls @ 250 mls/hr 07/15/19 11:30 07/15/19 11: 58 Chloride IVPB 07/15/19 18:00 500 mls NOW MATTHIAS Administration Insulin Human Lispro 0 units 06/26/19 12:14 07/15/19 05:05 Humalog SC 4 unit .MODERATE SLIDING SC PRN Administration Moderate Correctional Scale Labetalol HCl 10 mg 06/25/19 19:08 06/30/19 07:16 Normodyne SLOW IVP 10 mg Q10MIN PRN Administration SBP > 150 or DBP > 90 Potassium Chloride 40 meq 07/02/19 09:46 07/15/19 05:06 Klor-Con PER TUBE 40 meq ASDIR PRN Administration FOR SERUM K+ 2.5-3.5 Scopolamine 1.5 mg 07/13/19 16:00 07/13/19 17:05 Transderm Scop TOP 1.5 mg Q3D MATTHIAS Administration Sodium Chloride 10 ml 06/25/19 19:08 06/28/19 02:32 Flush - Normal Saline IVF 10 ml PRN PRN Administration Saline Flush - Exam General Appearance: ill appearing Eye: anicteric sclera Eye - other findings: R pupil is 6 mm and fixed ENT: no oropharyngeal lesions, dry oral mucosa Neck: supple, no JVD Heart: RRR, no gallops Respiratory: no wheezes, no rales Gastrointestinal: soft, non-tender, normal bowel sounds Extremities: no cyanosis, no edema Neurological - other findings: obtunded, global paralysis Hosp A/P (1) Hypertensive intracerebral hemorrhage Code(s): I61.9 - NONTRAUMATIC INTRACEREBRAL HEMORRHAGE, UNSPECIFIED Status: Acute (2) Acute encephalopathy Code(s): G93.40 - ENCEPHALOPATHY, UNSPECIFIED Status: Acute (3) Acute respiratory failure with hypoxia Code(s): J96.01 - ACUTE RESPIRATORY FAILURE WITH HYPOXIA Status: Acute (4) Hypertensive emergency Code(s): I16.1 - HYPERTENSIVE EMERGENCY Status: Resolved (5) Left leg DVT Code(s): I82.402 - ACUTE EMBOLISM AND THOMBOS UNSP DEEP VEINS OF L LOW EXTREM Status: Acute Qualifiers: Affected thrombotic vein of extremity: femoral Chronicity: acute Qualified Code(s): I82.412 - Acute embolism and thrombosis of left femoral vein (6) DM type 2 (diabetes mellitus, type 2) Status: Chronic Qualifiers: Diabetes mellitus ferry terminal supervisor insulin use: without detention use Diabetes mellitus complication status: without complication Qualified Code(s): E11.9 - Type 2 diabetes mellitus without complications - Plan 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 Might remain in vegetative state if she goes for extubation? Neurologically pt. has lost all reflexes today, no eye blinking or any movement in the upper extremities which she had yesterday.
[2019-07-15] MEDS: Sodium Chloride 0.9% 1,000 ML IV SCH (17:00)
--- NOTE | 2019-07-15 17:21 | RAD ---
Exam: Chest one view HISTORY:Intubated patient. Respiratory distress. Comparison: 07/03/2019 FINDINGS: Lines and tubes: Redemonstration of endotracheal tube, nasogastric tube and left-sided vascular jose ter, unchanged Cardiac silhouette:Upper normal cardiac silhouette Aorta: Unremarkable Pulmonary vessels: Normal Costophrenic angles: Interval development of bilateral pleural effusions. LUNGS: Bibasilar opacities adjacent to the pleural effusions may represent atelectasis, pneumonia or aspiration. Pneumothorax: None Osseous abnormalities: None IMPRESSION: Interval bibasilar pleural and parenchymal changes. Continued surveillance is recommended
[2019-07-15 17:34] LABS: Actual Bicarbonate (HCO3a) 23.9 mEq/L (22-28); Base Excess (BEa) -0.7 mEq/L (-2.0 to +3.0); CO2 Tension 39.4 mmHg (35.0-45.0); Carboxyhemoglobin (COHb) 0.7 gm% (0.0-3.0); Hemoglobin (Hb) 11.2 g/dL (12.0-16.0); Potassium - ABG Lab 4.93 mmol/L (3.70-5.30)
[2019-07-15 17:37] LABS: O2 Tension (PaO2) 54.7 mmHg (80.0-100.0)
[2019-07-15 17:38] LABS: Puncture Site RRAD
[2019-07-15 17:40] LABS: Bilirubin Negative (Negative); Blood, Urine Trace (Negative); Clarity Turbid (Clear); Glucose, Urine (Dipstick) 150 mg/dL (Negative); Leukocyte Negative Leu/uL (Negative); Nitrite Negative (Negative); Protein, Urine (Dipstick) 30 mg/dL (Neg-Trace); Urobilinogen Normal mg/dL (Less than 2)
[2019-07-15 17:44] LABS: INR-International Normal Ratio 1.6; PTT 28.5 SEC (22.9-36.1); Prothrombin Time 19.3 SEC (12.0-14.7)
[2019-07-15 18:01] LABS: Band 68 % (5-11); Eosinophils 1 % (0-10); Hemoglobin 10.6 g/dL (12.0-16.0); Hypochromia SLIGHT = 6-15 cells (100X) (0-5/hpf); Large Platelets SLIGHT; Lymphocytes 2 % (21-51); MDiff Complete? YES; Mean Corpuscular HGB CONC 31.5 g/dL (32.0-36.0); Mean Corpuscular Hemoglobin 28.1 pg (27.0-31.0); Mean Platelet Volume 12.5 fL (7.4-10.4); Metamyelocyte 4 % (0-0); Monocytes 3 % (0-10); Neutrophil 22 % (42-75); Platelet Count 233 thou/uL (130-400); Platelet Morphology Comment Appears Adequate; Polychromasia SLIGHT = 2-3 cells (100X) (0-2/hpf); RBC Distribution Width 13.5 % (11.5-14.5); Red Blood Cell (RBC) Count 3.76 mill/uL (4.20-5.40); White Blood Cell (WBC) Count 12.4 thou/uL (4.8-10.8)
[2019-07-15 18:02] LABS: ALT (SGPT) 14 U/L (8-55); AST (SGOT) 21 U/L (5-34); Albumin 2.6 g/dL (3.5-5.0); Alkaline Phosphatase 59 U/L (40-110); Anion Gap 12 mmol/L (10-20); BUN (Urea Nitrogen) 22 mg/dL (7.0-18.7); Bilirubin, Total 0.9 mg/dL (0.2-1.2); Calc. Creatinine Clearance 90 mL/min (70-130); Calcium 8.1 mg/dL (7.8-10.44); Carbon Dioxide 23 mmol/L (22-29); Chloride 109 mmol/L (98-107); Estimated GFR-MDRD 82; Globulin 3.8 g/dL (2.4-3.5); Glucose 215 mg/dL (70-105); Lipase 5 U/L (8-78); Magnesium 1.9 mg/dL (1.6-2.6); Phosphorus 2.9 mg/dL (2.3-4.7); Potassium 5.1 mmol/L (3.5-5.1); Protein, Total 6.4 g/dL (6.0-8.3); Sodium 139 mmol/L (136-145)
[2019-07-15 21:17] LABS: Actual Bicarbonate (HCO3a) 23.4 mEq/L (22-28); Base Excess (BEa) -1.6 mEq/L (-2.0 to +3.0); CO2 Tension 40.9 mmHg (35.0-45.0); O2 Tension (PaO2) 227.3 mmHg (80.0-100.0); pH, Arterial 7.38 (7.35-7.45)
[2019-07-15 21:18] LABS: Calcium, Ionized 1.13 mmol/L (1.12-1.30); Carboxyhemoglobin (COHb) 0.5 gm% (0.0-3.0); Hemoglobin (Hb) 10.8 g/dL (12.0-16.0); Potassium - ABG Lab 4.74 mmol/L (3.70-5.30)
[2019-07-15 21:19] LABS: ALV-art Gradient 434.575 (0-20); Puncture Site RRADIAL
[2019-07-15 23:12] LABS: INR-International Normal Ratio 1.8; PTT 39.1 SEC (22.9-36.1); Prothrombin Time 20.4 SEC (12.0-14.7)
--- NOTE | 2019-07-15 23:28 | RAD ---
Exam: Chest one view HISTORY:Respiratory distress. Evaluate pulmonary status. Comparison: 07/15/2019 4:49 PM FINDINGS: Lines and tubes: Redemonstration of endotracheal tube, nasogastric tube and left-sided vascular jose ter, unchanged. Cardiac silhouette:Enlarged cardiac silhouette. Aorta: Unremarkable Pulmonary vessels: Normal Costophrenic angles: Decreased bilateral pleural effusions. LUNGS: Improved aeration lung bases. Residual interstitial opacities do remain. Pneumothorax: None Osseous abnormalities: None IMPRESSION: Improved aeration of the lung bases. Residual interstitial opacities do remain. Resolutio n of previously suggested pleural effusions.
[2019-07-15 23:29] LABS: Hemoglobin A1c 7.9 % (4.0-6.0)
[2019-07-15 23:30] LABS: Band 47 % (5-11); Hemoglobin 10.1 g/dL (12.0-16.0); Lymphocytes 5 % (21-51); MDiff Complete? YES; Mean Corpuscular HGB CONC 30.7 g/dL (32.0-36.0); Mean Corpuscular Hemoglobin 27.6 pg (27.0-31.0); Mean Corpuscular Volume 89.9 fL (78.0-98.0); Mean Platelet Volume 12.1 fL (7.4-10.4); Neutrophil 48 % (42-75); Platelet Count 212 thou/uL (130-400); RBC Distribution Width 13.7 % (11.5-14.5); Red Blood Cell (RBC) Count 3.66 mill/uL (4.20-5.40); White Blood Cell (WBC) Count 14.9 thou/uL (4.8-10.8)
[2019-07-15 23:33] LABS: ALT (SGPT) 12 U/L (8-55); AST (SGOT) 19 U/L (5-34); Albumin 2.6 g/dL (3.5-5.0); Alkaline Phosphatase 60 U/L (40-110); Anion Gap 12 mmol/L (10-20); BUN (Urea Nitrogen) 24 mg/dL (7.0-18.7); Bilirubin, Total 0.5 mg/dL (0.2-1.2); Calc. Creatinine Clearance 83 mL/min (70-130); Calcium 8.5 mg/dL (7.8-10.44); Carbon Dioxide 24 mmol/L (22-29); Chloride 113 mmol/L (98-107); Estimated GFR-MDRD 75; Globulin 3.7 g/dL (2.4-3.5); Glucose 122 mg/dL (70-105); Lipase Less than 4 U/L (8-78); Magnesium 2.5 mg/dL (1.6-2.6); Phosphorus 2.3 mg/dL (2.3-4.7); Potassium 4.7 mmol/L (3.5-5.1); Protein, Total 6.3 g/dL (6.0-8.3); Sodium 144 mmol/L (136-145)
[2019-07-16 01:24] LABS: Actual Bicarbonate (HCO3a) 23.7 mEq/L (22-28); Base Excess (BEa) -0.5 mEq/L (-2.0 to +3.0); CO2 Tension 37.3 mmHg (35.0-45.0); Calcium, Ionized 1.14 mmol/L (1.12-1.30); Carboxyhemoglobin (COHb) 0.5 gm% (0.0-3.0); Hemoglobin (Hb) 11.4 g/dL (12.0-16.0); O2 Tension (PaO2) 362.3 mmHg (80.0-100.0); Potassium - ABG Lab 4.81 mmol/L (3.70-5.30); pH, Arterial 7.42 (7.35-7.45)
[2019-07-16 01:25] LABS: Puncture Site RRADIAL
[2019-07-16 01:27] LABS: ALV-art Gradient 304.075 (0-20)
[2019-07-16 05:20] LABS: Actual Bicarbonate (HCO3a) 21.3 mEq/L (22-28); Base Excess (BEa) -3.1 mEq/L (-2.0 to +3.0); CO2 Tension 35.5 mmHg (35.0-45.0); Calcium, Ionized 1.18 mmol/L (1.12-1.30); Carboxyhemoglobin (COHb) 0.7 gm% (0.0-3.0); Hemoglobin (Hb) 11.3 g/dL (12.0-16.0); O2 Tension (PaO2) 264.9 mmHg (80.0-100.0)
[2019-07-16 05:22] LABS: Puncture Site RRADIAL
[2019-07-16 05:23] LABS: ALV-art Gradient 403.725 (0-20)
[2019-07-16] MEDS: Sodium Chloride 0.9% 1,000 ML IV SCH (05:43)
[2019-07-16] MEDS: Levothyroxine Sodium 400 MCG in Sodium Chloride 0.9% 100 ML IVPB SCH (05:44)
[2019-07-16] MEDS: MEROPENEM 1 GM/50 ML 1 GM in Premix Bag 1 BAG IVPB SCH ×2 (05:44→14:00)
[2019-07-16] MEDS: Norepinephrine 8 MG/0.9% NS 250 ML IVPB SCH (05:44)
[2019-07-16 05:48] LABS: INR-International Normal Ratio 1.6; Prothrombin Time 18.8 SEC (12.0-14.7)
[2019-07-16 05:49] LABS: PTT 40.1 SEC (22.9-36.1)
[2019-07-16 05:58] LABS: Hemoglobin A1c 7.8 % (4.0-6.0)
[2019-07-16 06:09] LABS: ALT (SGPT) 14 U/L (8-55); AST (SGOT) 22 U/L (5-34); Albumin 2.8 g/dL (3.5-5.0); Alkaline Phosphatase 69 U/L (40-110); Anion Gap 15 mmol/L (10-20); BUN (Urea Nitrogen) 24 mg/dL (7.0-18.7); Bilirubin, Total 0.5 mg/dL (0.2-1.2); Calc. Creatinine Clearance 87 mL/min (70-130); Calcium 8.6 mg/dL (7.8-10.44); Carbon Dioxide 21 mmol/L (22-29); Chloride 117 mmol/L (98-107); Estimated GFR-MDRD 76; Globulin 4.2 g/dL (2.4-3.5); Glucose 120 mg/dL (70-105); Lipase Less than 4 U/L (8-78); Magnesium 2.5 mg/dL (1.6-2.6); Phosphorus 2.7 mg/dL (2.3-4.7); Potassium 4.9 mmol/L (3.5-5.1); Sodium 148 mmol/L (136-145)
[2019-07-16 06:17] LABS: Band 38 % (5-11); Hemoglobin 10.6 g/dL (12.0-16.0); Lymphocytes 4 % (21-51); MDiff Complete? YES; Mean Corpuscular HGB CONC 30.7 g/dL (32.0-36.0); Mean Corpuscular Hemoglobin 27.6 pg (27.0-31.0); Mean Corpuscular Volume 89.9 fL (78.0-98.0); Mean Platelet Volume 12.3 fL (7.4-10.4); Metamyelocyte 9 % (0-0); Monocytes 2 % (0-10); Myelocyte 3 % (0-0); Neutrophil 44 % (42-75); Platelet Count 215 thou/uL (130-400); RBC Distribution Width 13.8 % (11.5-14.5); Red Blood Cell (RBC) Count 3.82 mill/uL (4.20-5.40); White Blood Cell (WBC) Count 18.1 thou/uL (4.8-10.8)
--- NOTE | 2019-07-16 07:45 | RAD ---
EXAM: Single view of the chest HISTORY: Respiratory failure COMPARISON: 07/15/2019 FINDINGS: Single view of the chest shows a normal sized cardiomediastinal silhouette. The lines and tubes are unchanged in position. Increased interstitial markings are present. Atelectasis versus infiltrates seen in both lower lobes. The bones are unremarkable. IMPRESSION: Stable exam
[2019-07-16] MEDS: Insulin Glargine 25 UNITS in Pre-Filled Syringe 1 EACH SC SCH (09:20)
[2019-07-16] MEDS: Famotidine 20 MG TAB PER TUBE SCH (09:25)
[2019-07-16 09:42] LABS: Actual Bicarbonate (HCO3a) 21.8 mEq/L (22-28); Base Excess (BEa) -2.9 mEq/L (-2.0 to +3.0); CO2 Tension 37.1 mmHg (35.0-45.0); Calcium, Ionized 1.17 mmol/L (1.12-1.30); Carboxyhemoglobin (COHb) 0.3 gm% (0.0-3.0); Hemoglobin (Hb) 9.8 g/dL (12.0-16.0); O2 Tension (PaO2) 408.4 mmHg (80.0-100.0); Potassium - ABG Lab 4.48 mmol/L (3.70-5.30); pH, Arterial 7.39 (7.35-7.45)
[2019-07-16 09:45] LABS: Puncture Site L.R.
[2019-07-16 09:46] LABS: ALV-art Gradient -98.275 (0-20)
[2019-07-16 11:17] LABS: ALT (SGPT) 11 U/L (8-55); AST (SGOT) 16 U/L (5-34); Albumin 2.5 g/dL (3.5-5.0); Alkaline Phosphatase 61 U/L (40-110); Anion Gap 13 mmol/L (10-20); BUN (Urea Nitrogen) 24 mg/dL (7.0-18.7); Bilirubin, Total 0.5 mg/dL (0.2-1.2); Calc. Creatinine Clearance 86 mL/min (70-130); Carbon Dioxide 21 mmol/L (22-29); Chloride 121 mmol/L (98-107); Estimated GFR-MDRD 75; Globulin 3.9 g/dL (2.4-3.5); Glucose 153 mg/dL (70-105); Lipase Less than 4 U/L (8-78); Magnesium 2.6 mg/dL (1.6-2.6); Phosphorus 2.9 mg/dL (2.3-4.7); Potassium 4.5 mmol/L (3.5-5.1); Protein, Total 6.4 g/dL (6.0-8.3); Sodium 150 mmol/L (136-145)
[2019-07-16 11:27] LABS: Hemoglobin 9.5 g/dL (12.0-16.0); Mean Corpuscular HGB CONC 31.4 g/dL (32.0-36.0); Mean Corpuscular Hemoglobin 28.8 pg (27.0-31.0); Mean Corpuscular Volume 91.5 fL (78.0-98.0); Mean Platelet Volume 12.3 fL (7.4-10.4); Platelet Count 179 thou/uL (130-400); RBC Distribution Width 13.7 % (11.5-14.5); Red Blood Cell (RBC) Count 3.28 mill/uL (4.20-5.40); White Blood Cell (WBC) Count 12.8 thou/uL (4.8-10.8)
--- NOTE | 2019-07-16 11:30 | PRG ---
DATE OF SERVICE: 07/16/2019 Ms. Rutherford is now hospital day #21 after having sustained a left thalamic hemorrhage with subsequent evacuation. Yesterday, family made the decision to extubate the patient and withdraw care. A cerebral perfusion scan was completed yesterday and demonstrated blood flow, thus study was not consistent with brain . Therefore, another cerebral perfusion scan will be done today to reassess. Plan is for the patient to donate her organs. On exam, the patient has a GCS of 3. Pupils are dilated and nonreactive, 6 mm on right and 5 mm on the left. She is nonresponsive and does not withdraw to painful stimuli. She remains on the ventilator. We will continue to follow the patient while she remains in the hospital. Family has asked to be updated once the patient has . Job ID: [id number] MTDD
--- NOTE | 2019-07-16 11:33 | RAD ---
EXAM: CHEST ONE VIEW HISTORY: Respiratory distress. Evaluate pulmonary status. Follow-up evaluation. COMPARISON: 07/16/2019 at 0440 hours. FINDINGS: Endotracheal tube and nasogastric tubes remain in place. Left subclavian central venous catheter is s table in position. Cardiac silhouette and pulmonary vasculature are within normal limits. There has been improvement in aeration at the right lung base with only minimal persistent linear densities pre sent. There is suggestion of area of greater increased density at the medial left lung base which may be related to pneumonia or aspiration pneumonitis. Associated mild increased interstitial densiti es are also seen at the left lung base. No other interval change. IMPRESSION: 1. Increased density medial left lung base with associated interstitial densities. Findings are worri some for pneumonia versus aspiration pneumonitis. Follow-up to resolution is recommended. 2. Improved aeration right lung base with minimal persisting linear densities which may related to at electasis.
[2019-07-16 11:47] LABS: INR-International Normal Ratio 1.7; PTT 41.2 SEC (22.9-36.1); Prothrombin Time 19.9 SEC (12.0-14.7)
[2019-07-16 12:04] LABS: Bilirubin Negative (Negative); Blood, Urine 1+ (Negative); Clarity Clear (Clear); Glucose, Urine (Dipstick) Normal (Negative); Leukocyte Negative Leu/uL (Negative); Nitrite Negative (Negative); Protein, Urine (Dipstick) 30 mg/dL (Neg-Trace); Urobilinogen Normal mg/dL (Less than 2)
[2019-07-16 12:18] LABS: Band 53 % (5-11); Lymphocytes 4 % (21-51); MDiff Complete? YES; Metamyelocyte 5 % (0-0); Monocytes 8 % (0-10); Myelocyte 1 % (0-0); Neutrophil 28 % (42-75); Platelet Morphology Comment Appears Decreased; Polychromasia SLIGHT = 2-3 cells (100X) (0-2/hpf); Reactive Lymphocytes 1 % (0-10); Reflex for Review?? NO; Vacuoles MODERATE
[2019-07-16 13:58] LABS: Actual Bicarbonate (HCO3a) 21.9 mEq/L (22-28); Base Excess (BEa) -2.2 mEq/L (-2.0 to +3.0); Calcium, Ionized 1.18 mmol/L (1.12-1.30); Carboxyhemoglobin (COHb) 0.9 gm% (0.0-3.0); Hemoglobin (Hb) 9.1 g/dL (12.0-16.0); O2 Tension (PaO2) 452.4 mmHg (80.0-100.0); Potassium - ABG Lab 4.05 mmol/L (3.70-5.30); pH, Arterial 7.42 (7.35-7.45)
[2019-07-16 13:59] LABS: Puncture Site LINE
[2019-07-16 14:19] LABS: Actual Bicarbonate (HCO3a) 25.4 mEq/L (22-28); Analyzer IN Cardio ER; Calcium, Ionized 1.21 mmol/L (1.12-1.30); Carboxyhemoglobin (COHb) 0.2 gm% (0.0-3.0); Hemoglobin (Hb) 10.1 g/dL (12.0-16.0); O2 Tension (PaO2) 351.6 mmHg (80.0-100.0); Potassium - ABG Lab 4.05 mmol/L (3.70-5.30)
[2019-07-16 14:23] LABS: Actual Bicarbonate (HCO3a) 26.3 mEq/L (22-28); Base Excess (BEa) -4.4 mEq/L (-2.0 to +3.0); Calcium, Ionized 1.25 mmol/L (1.12-1.30); Carboxyhemoglobin (COHb) 0.2 gm% (0.0-3.0); O2 Tension (PaO2) 341.6 mmHg (80.0-100.0); Potassium - ABG Lab 4.19 mmol/L (3.70-5.30)
[2019-07-16 14:29] LABS: ALV-art Gradient 264.025 (0-20); CO2 Tension 85.9 mmHg (35.0-45.0); Puncture Site LINE
[2019-07-16 14:32] LABS: pH, Arterial 7.17 (7.35-7.45)
[2019-07-16 14:33] LABS: CO2 Tension 71.8 mmHg (35.0-45.0); Puncture Site LINE
--- NOTE | 2019-07-16 14:56 | PDOC.HOSPP ---
- Subjective Encounter Date: 07/16/19 Encounter Time: 11:00 Subjective: obtunded on vent no response to painfull or verbal stimuli - Objective Vital Signs & Weight: Vital Signs (12 hours) Temp Pulse Resp BP Pulse Ox 07/16/19 13:00 100.0 F H 07/16/19 12:00 100.0 F H 15 07/16/19 10:48 62 151/80 H 07/16/19 10:00 15 07/16/19 08:00 15 07/16/19 07:35 100 07/16/19 07:20 100.1 F H 07/16/19 06:50 57 L 167/93 H 07/16/19 06:00 15 07/16/19 04:00 100.6 F H 15 Weight Admit Weight 138 lb Weight 143 lb 11.862 oz Most Recent Monitor Data Heart Rate from ECG 62 NIBP 115/56 NIBP BP-Mean 75 Respiration from ECG 15 SpO2 100 I&O: 07/15/19 07/16/19 07/17/19 06:59 06:59 06:59 Intake Total 1974 3392 130 Output Total 2180 2144 885 Balance -211 7074 -921 Result Diagrams: 07/16/19 10:52 07/16/19 10:52 Additional Labs: Accuchecks 07/16/19 07/15/19 03:56 22:28 POC Glucose 105 119 H Hospitalist ROS - Medication Medications: Active Medications Generic Name Dose Route Start Last Admin Trade Name Freq PRN Reason Stop Dose Admin Acetaminophen 650 mg 07/01/19 17:02 07/14/19 20:07 Tylenol Elixir PER TUBE 650 mg Q4H PRN Administration Headache/Fever or Pain Famotidine 20 mg 07/10/19 21:00 07/16/19 09:25 Pepcid PER TUBE 20 mg BID MATTHIAS Administration Hydralazine HCl 10 mg 06/25/19 19:24 07/14/19 17:49 Apresoline SLOW IVP 10 mg Q15MIN PRN Administration Sbp Greater Than 150 Levetiracetam 500 mg/ Device 100 mls @ 200 mls/hr 06/25/19 21:00 07/16/19 09: 25 IVPB 100 mls BID MATTHIAS Administration Nicardipine HCl 50 mg/ Sodium 250 mls @ 0 mls/hr 06/26/19 00:45 07/15/19 03: 49 Chloride IVPB 250 mls INF PRN Administration TO MAINTAIN SBP < 150 Protocol As Directed Magnesium Sulfate 1 gm/ Sodium 102 mls @ 102 mls/hr 07/02/19 09:46 07/15/19 21:23 Chloride IV 102 mls PRN PRN Administration MAG LEVEL 1.4 - 2.0 Insulin Glargine 25 units/ 0.25 mls @ 1 mls/hr 07/04/19 09:00 07/16/19 09:20 Miscellaneous Medication SC 0.25 mls QAM MATTHIAS Administration Levothyroxine Sodium 400 mcg/ 100 mls @ 0 mls/hr 07/15/19 11:30 07/16/19 05: 44 Sodium Chloride IVPB 100 mls INF MATTHIAS Administration Protocol As Directed Norepinephrine Bitartrate 250 mls @ 0 mls/hr 07/15/19 11:29 07/16/19 05:44 Levophed IVPB 250 mls INF MATTHIAS Administration Protocol Titrate Meropenem 1 gm/ Device 50 mls @ 200 mls/hr 07/15/19 14:00 07/16/19 05:44 IVPB 50 mls Q8HR MATTHIAS Administration Sodium Chloride 1,000 mls @ 75 mls/hr 07/15/19 16:30 07/16/19 05:43 Normal Saline 0.9% IV 1,000 mls .[id number] MATTHIAS Administration Insulin Human Lispro 0 units 06/26/19 12:14 07/15/19 18:21 Humalog SC 4 unit .MODERATE SLIDING SC PRN Administration Moderate Correctional Scale Labetalol HCl 10 mg 06/25/19 19:08 06/30/19 07:16 Normodyne SLOW IVP 10 mg Q10MIN PRN Administration SBP > 150 or DBP > 90 Potassium Chloride 40 meq 07/02/19 09:46 07/15/19 05:06 Klor-Con PER TUBE 40 meq ASDIR PRN Administration FOR SERUM K+ 2.5-3.5 Scopolamine 1.5 mg 07/13/19 16:00 07/13/19 17:05 Transderm Scop TOP 1.5 mg Q3D MATTHIAS Administration Sodium Chloride 10 ml 06/25/19 19:08 06/28/19 02:32 Flush - Normal Saline IVF 10 ml PRN PRN Administration Saline Flush - Exam General Appearance: ill appearing Eye: anicteric sclera Eye - other findings: both pupils are dilated ENT: no oropharyngeal lesions, dry oral mucosa Neck: supple, no JVD Heart: RRR, no murmur Respiratory: no wheezes, no rales, rhonchi Gastrointestinal: soft, non-tender, non-distended, normal bowel sounds Extremities: no cyanosis, 1+ LE edema Hosp A/P (1) Hypertensive intracerebral hemorrhage Code(s): I61.9 - NONTRAUMATIC INTRACEREBRAL HEMORRHAGE, UNSPECIFIED Status: Acute (2) Acute encephalopathy Code(s): G93.40 - ENCEPHALOPATHY, UNSPECIFIED Status: Acute (3) Acute respiratory failure with hypoxia Code(s): J96.01 - ACUTE RESPIRATORY FAILURE WITH HYPOXIA Status: Acute (4) Hypertensive emergency Code(s): I16.1 - HYPERTENSIVE EMERGENCY Status: Resolved (5) Left leg DVT Code(s): I82.402 - ACUTE EMBOLISM AND THOMBOS UNSP DEEP VEINS OF L LOW EXTREM Status: Acute Qualifiers: Affected thrombotic vein of extremity: femoral Chronicity: acute Qualified Code(s): I82.412 - Acute embolism and thrombosis of left femoral vein (6) DM type 2 (diabetes mellitus, type 2) Status: Chronic Qualifiers: Diabetes mellitus snf insulin use: without snf use Diabetes mellitus complication status: without complication Qualified Code(s): E11.9 - Type 2 diabetes mellitus without complications - Plan pt is s/p evacuation of left thalamic ICH with placement of EVD and removal HTN is stable on oral meds via ng tube Per NSX has very little chance if any of functional recovery she has a son who is a bit intellectually disabled, pt is and has biological parents per staff (I have not met them) Family have opted for withdrawal of care and donation of organs per staff/ palliative care. continue coreg, hydralazine, lantus, keppra and meropenem for esbl +ve e.coli bacteremia. Palliative care and ethics team are following patient. Neurologically pt. has lost all reflexes, no eye blinking or any movement in the upper extremities which she had on 07/14. Very poor prognosis Patient is being prepped for organ donation if she is a candidate
[2019-07-16 14:59] VITALS: BP 152/72
[2019-07-16 15:48] VITALS: TEMP 100.2
--- NOTE | 2019-07-16 16:29 | PRG ---
DATE OF SERVICE: 07/16/2019 SERVICE: Pulmonary Medicine. INTERVAL HISTORY: Yesterday, we ended up doing a scan of her brain. There was a little bit of residual blood flow in the brain. That being said, it certainly did not speak to the functionality of it. As such, she did not meet criteria on that analysis. As such, we went ahead and waited 24 hours, and today, we were doing a brain analysis. The patient cannot provide any additional elements of the history. She was completely comatose and nonresponsive. PHYSICAL EXAMINATION: VITAL SIGNS: Afebrile currently with a T-max of 100.6. Pulse 75, blood pressure 133/74, respirations 15, and saturation 100%, currently on 21% FiO2 and a PEEP of 5. GENERAL: The patient was intubated. She was on no sedation since being here. HEART: Normal rate and regular. ABDOMEN: Soft, nontender, and nondistended. Bowel sounds were positive. MUSCULOSKELETAL: No cyanosis or clubbing. There was diffuse 1 to 2+ pitting throughout. NEUROLOGIC: Brainstem reflexes were all completely absent. For her neurologic exam, please refer to our brain analysis documentation. LABORATORY DATA: WBC 12.8, hemoglobin 9.5, and platelets 179,000. INR 1.7; pH of 7.42, pCO2 of 35. With the brain analysis, the pH went down to 7.1, and the pCO2 went up to 85, and there was no effort at spontaneous respiration. Sodium 150 and chloride 121. Basic metabolic profile and liver function studies were otherwise unremarkable. Lipase was negative, amylase 68. Hemoglobin A1c 8.0, direct bilirubin 0.3. HIV-1 and 2 were nonreactive. Urine culture and blood cultures x2 were growing gram-negative brittany. Spinal fluid of the meninges was also growing a gram-negative brittany. ASSESSMENT: 1. Acute hypoxic respiratory failure, resolved. 2. Intraparenchymal hemorrhage of the left thalamus with extension into the intraventricular space, status post craniotomy and external ventricular drain placement, postop day 21. 3. Hypertensive emergency. 4. Deep venous thrombosis. 5. 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 DISCUSSION AND PLAN: We will continue our empiric antibiotics. We did a brain analysis. We went through the entire checklist. At the end of 11 minutes, she made no spontaneous efforts at respiration. She had a very significant increase in her pCO2. As such, we declared her . Time of is 1422 on July 16, 2019. Family has declined an autopsy and has deferred additional decision making to the patient's friend. CRITICAL CARE TIME: 30 minutes. Job ID: [id number]
--- NOTE | 2019-07-16 18:46 | OP ---
DATE OF PROCEDURE: 07/16/2019 SERVICE: Pulmonary Medicine. PROCEDURE PERFORMED: Left-sided radial arterial catheter placement. STAFF PHYSICIAN: Deacon Garrison MD MEDICATIONS USED: None. INDICATION: Frequent ABG requirements. DESCRIPTION OF PROCEDURE: A time-out was performed by the procedure team and the patient. The patient was positively identified using name and date of . The procedure site was marked. Vital sign monitoring was accomplished by noninvasive hemodynamic monitoring, pulse oximetry, and telemetry. With the patient in the supine position, the left wrist was extended and the radial pulse was palpated. The skin was prepped and then draped in usual sterile fashion. The radial artery was cannulated under direct palpation on the first attempt with return of bright red, pulsatile blood. The arterial catheter was inserted without difficulty. It was attached to the monitor, and appropriate arterial waveform was identified. Sterile dressing was applied, and the procedure was terminated. ESTIMATED BLOOD LOSS: 3 mL. COMPLICATIONS: None. Job ID: [id number]
== END 2019-07-16 14:22 | disposition expired | DRG 23 ==
LOC: ERS 15:05 → CCU 15:47 → SDC 16:20 → CCU 17:55
PROVIDERS: ADMIT Surgery; ATTEND Surgery
PROC: 00C Central Nervous System and Cranial Nerves, Extirpation (ICD-10-PCS; principal; 2019-06-25)
PROC: 009600Z Drainage of Cerebral Ventricle with Drainage Device, Open Approach (ICD-10-PCS; 2019-06-25)
PROC: 5A1955Z Respiratory Ventilation, Greater than 96 Consecutive Hours (ICD-10-PCS; 2019-06-25)
PROC: 0BH17EZ Insertion of Endotracheal Airway into Trachea, Via Natural or Artificial Opening (ICD-10-PCS; 2019-06-25)
PROC: 0BH18EZ Insertion of Endotracheal Airway into Trachea, Via Natural or Artificial Opening Endoscopic (ICD-10-PCS; 2019-07-04)
PROC: 5A1955Z Respiratory Ventilation, Greater than 96 Consecutive Hours (ICD-10-PCS; 2019-07-04)
PROC: 03HY32Z Insertion of Monitoring Device into Upper Artery, Percutaneous Approach (ICD-10-PCS; 2019-07-16)
DX: I62.9 Nontraumatic intracranial hemorrhage, unspecified (principal); J96.01 Acute respiratory failure with hypoxia; A41.50 Gram-negative sepsis, unspecified; G91.1 Obstructive hydrocephalus; I16.1 Hypertensive emergency; E87.0 Hyperosmolality and hypernatremia; N39.0 Urinary tract infection, site not specified; I82.412 Acute embolism and thrombosis of left femoral vein; G81.91 Hemiplegia, unspecified affecting right dominant side; G93.49 Other encephalopathy; R40.2112 Coma scale, eyes open, never, at arrival to emergency department; R40.2312 Coma scale, best motor response, none, at arrival to emergency department; R40.2212 Coma scale, best verbal response, none, at arrival to emergency department; Z79.899 Other long term (current) drug therapy; Z91.14 Patient's other noncompliance with medication regimen; E11.65 Type 2 diabetes mellitus with hyperglycemia; E87.6 Hypokalemia; Z51.5 Encounter for palliative care; Z66 Do not resuscitate; D64.9 Anemia, unspecified
CPT/HCPCS: 31500; 36415; 36416; 36556; 51702; 70450; 71045; 78610; 80048; 80053; 80061; 80076; 80202; 80306; 81003; 81015; 82140; 82150; 82248; 82550; 82553; 82805; 82945; 82977; 83036; 83690; 83735; 84100; 84157; 84443; 84484; 84703; 85025; 85027; 85060; 85610; 85730; 86850; 86900; 86901; 87040; 87070; 87077; 87086; 87149; 87186; 87205; 87389; 89051; 93005; 93970; 94002; 94003; 96365; 96374; 96375; A9521; C1713; J0360; J0690; J0692; J1642; J1815; J1940; J1953; J2150; J2185; J2248; J2704; J2930; J3010; J3370; J3475; J3480; J3490; J7050; J7799; S0028

== ENCOUNTER 2019-07-16 14:23 | Day surgery (SDC) | payer OTHER ==
[2019-07-16 16:44] LABS: Actual Bicarbonate (HCO3a) 24.1 mEq/L (22-28); Base Excess (BEa) -0.4 mEq/L (-2.0 to +3.0); CO2 Tension 38.6 mmHg (35.0-45.0); Calcium, Ionized 1.19 mmol/L (1.12-1.30); Carboxyhemoglobin (COHb) 0.3 gm% (0.0-3.0); Hemoglobin (Hb) 9.2 g/dL (12.0-16.0); O2 Tension (PaO2) 383.9 mmHg (80.0-100.0); Potassium - ABG Lab 4.09 mmol/L (3.70-5.30); pH, Arterial 7.41 (7.35-7.45)
[2019-07-16 16:47] LABS: Puncture Site LINE
[2019-07-16 16:53] LABS: Hemoglobin 8.9 g/dL (12.0-16.0); INR-International Normal Ratio 1.8; Mean Corpuscular HGB CONC 30.9 g/dL (32.0-36.0); Mean Corpuscular Hemoglobin 27.9 pg (27.0-31.0); Mean Corpuscular Volume 90.5 fL (78.0-98.0); Mean Platelet Volume 12.6 fL (7.4-10.4); Platelet Count 182 thou/uL (130-400); Prothrombin Time 20.4 SEC (12.0-14.7); Red Blood Cell (RBC) Count 3.19 mill/uL (4.20-5.40); White Blood Cell (WBC) Count 14.5 thou/uL (4.8-10.8)
[2019-07-16 16:54] LABS: PTT 42.9 SEC (22.9-36.1)
[2019-07-16 17:01] LABS: ALT (SGPT) 12 U/L (8-55); AST (SGOT) 15 U/L (5-34); Albumin 2.5 g/dL (3.5-5.0); Alkaline Phosphatase 71 U/L (40-110); Anion Gap 10 mmol/L (10-20); BUN (Urea Nitrogen) 25 mg/dL (7.0-18.7); Bilirubin, Direct 0.3 mg/dL (0.1-0.3); Bilirubin, Total 0.4 mg/dL (0.2-1.2); Calc. Creatinine Clearance 0 mL/min (70-130); Calcium 8.5 mg/dL (7.8-10.44); Carbon Dioxide 24 mmol/L (22-29); Chloride 123 mmol/L (98-107); Estimated GFR-MDRD 75; Gamma GT (GGT) 18 U/L (9-36); Globulin 3.7 g/dL (2.4-3.5); Glucose 151 mg/dL (70-105); Lipase Less than 4 U/L (8-78); Magnesium 2.7 mg/dL (1.6-2.6); Phosphorus 2.5 mg/dL (2.3-4.7); Potassium 4.2 mmol/L (3.5-5.1); Protein, Total 6.2 g/dL (6.0-8.3); Sodium 153 mmol/L (136-145)
[2019-07-16 17:05] LABS: CKMB 0.4 ng/mL (0-6.6); Troponin I 0.012 ng/mL (< 0.028)
[2019-07-16 17:28] VITALS: BMI 24.0
[2019-07-16] MEDS ORDERED: Albuterol Sulfate 2.5 mg/3 ml Neb NEB PRN (17:30)
[2019-07-16] MEDS ORDERED: Phytonadione 10 MG in Sodium Chloride 0.9% 50 ML IVPB SCH (17:30)
[2019-07-16] MEDS ORDERED: Meropenem 500 MG in Sodium Chloride 0.9% 100 ML IV SCH (17:30)
[2019-07-16 17:36] LABS: Band 68 % (5-11); Hypochromia SLIGHT = 6-15 cells (100X) (0-5/hpf); Large Platelets SLIGHT; Lymphocytes 4 % (21-51); MDiff Complete? YES; Metamyelocyte 5 % (0-0); Monocytes 7 % (0-10); Myelocyte 1 % (0-0); Neutrophil 15 % (42-75); Platelet Morphology Comment Appears Adequate; Polychromasia MODERATE = 3-4 cells (100X) (0-2/hpf); Target Cells SLIGHT = 2-5 cells (100X) (0-1/hpf); Tear Drops SLIGHT = 2-5 cells (100X) (0-1/hpf)
[2019-07-16] MEDS ORDERED: Sodium Chloride 0.45% 1,000 ML IV SCH (17:45)
--- NOTE | 2019-07-16 17:47 | RAD ---
Exam: Chest one view HISTORY:Unknown pulmonary status Comparison: 07/16/2019 FINDINGS: Lines and tubes: Stable endotracheal tube, nasogastric tube, left-sided vascular catheter. Cardiac silhouette:Stable cardiac silhouette Aorta: Unremarkable Pulmonary vessels: Normal Costophrenic angles: Clear LUNGS: Persistent bibasilar opacities. Pneumothorax: None Osseous abnormalities: None IMPRESSION: Persistent bibasilar opacities, worrisome for aspiration, atelectasis or pneumonia. The d egree of opacification of lung bases is stable.
[2019-07-16] MEDS ORDERED: Albuterol Sulfate 2.5 mg/3 ml Neb NEB SCH (18:30)
[2019-07-16 19:49] VITALS: TEMP 99.3
[2019-07-16 21:01] VITALS: BP 170/81
--- NOTE | 2019-07-17 01:02 | OP ---
DATE OF PROCEDURE: 07/16/2019 SERVICE: Pulmonary Medicine. PROCEDURES PERFORMED: Fiberoptic bronchoscopy with; 1. Visual airway inspection. 2. Bronchial wash from bilateral lungs. PREPROCEDURE DIAGNOSIS: Brain evaluation. POSTPROCEDURE DIAGNOSIS: Brain evaluation. PROCEDURE BODY DIE MAKER: Deacon Garrison MD MEDICATIONS USED: None. DESCRIPTION OF PROCEDURE: A diagnostic fiberoptic bronchoscope was introduced through the existing endotracheal tube. A tracheobronchial tree inspection was carried out with clear identification of the right upper lobe, right middle lobe, right lower lobe, left upper lobe, lingula, and left lower lobe. Anatomy was normal to the segmental level. The mucosa appeared normal without significant friability. Bronchial wash was obtained from dependent regions of bilateral lungs. There was no significant blood loss. The bronchoscope was subsequently removed from the patient. FINDINGS: 1. No endobronchial disease was identified. Mucosa appeared normal without significant friability. 2. The secretions were minimal. 3. Annabella appeared sharp. SPECIMEN OBTAINED: Bronchial wash, bilateral for routine Gram stain and culture. COMPLICATIONS: None. ESTIMATED BLOOD LOSS: None. FLUOROSCOPY TIME: None. DISPOSITION: The patient will remain on mechanical ventilation in the ICU. Job ID: [id number]
== END 2019-07-16 21:32 | disposition short-term general hospital (02) ==
LOC: CCU 14:23 → SDC 14:23
PROC: 0B9M8ZX Drainage of Bilateral Lungs, Via Natural or Artificial Opening Endoscopic, Diagnostic (ICD-10-PCS; principal; 2019-07-16)
CPT/HCPCS: 36430; 71045; 82150; 82248; 82553; 82805; 82977; 83615; 83690; 83735; 84100; 84484; 86850; 86900; 86901; 93005; 93010; 94640; J2185; J3430; J3490; J7611; P9045; P9059